=== PATIENT | male | born 1965 | race Caucasian/White ===

== ENCOUNTER 2023-09-28 08:17 | Emergency (ER) | payer OTHER, SELFPAY ==
--- NOTE | ~2023-09-28 | XR_ITS ---
EXAMINATION: XR foot LT min 3V DATE: 09/28/2023 08:48 INDICATION: Left foot pain. TECHNIQUE: 4 views of left foot were obtained. COMPARISON: None. FINDINGS: Bone alignment is normal. No fracture. There is mild osteoarthritis of first metatarsophala ngeal joint and some of the interphalangeal joints. There are enthesophytes at the posterior and plan tar aspects of calcaneal tuberosity. IMPRESSION: 1. Mild polyarticular osteoarthritis. Reviewed, dictated and finalized at location A. RCEPTOR OPERATOR
[2023-09-28 08:35] VITALS: BP 125/94; PULSE 96; RESP 16; TEMP 36.6; O2SAT 99
--- NOTE | 2023-09-28 08:57 | ED.GENADULT ---
HPI - General Adult General Chief complaint: Extremity Injury, Lower Stated complaint: Swollen Left foot Time Seen by Provider: 09/28/23 08:57 Source: patient, RN notes reviewed and old records reviewed Mode of arrival: ambulatory Limitations: no limitations History of Present Illness HPI narrative: 57-year-old male presents to [facility] with complaints pain to his left foot for the past month which is in the arch of his left foot initially in the morning and then as day progresses it will go to the left side of his foot and then go to area of foot under his left ankle bone area. Patient is on his feet a lot at work on concrete daily 10 hours a day and reports some mild swelling of his foot as day progresses. Patient reports that he has no tingling or numbness to his left foot or any burning type of pain, full mobility of left foot noted. MD complaint: left foot pain Onset (ago): month(s) (1) Location: lower extremity (foot) Severity scale (1-10): 2 Quality: aching Exacerbating factors: other (prolonged weight bearing) Treatments prior to arrival: aspirin and other (compression sock) Related Data Home Medications Medication Instructions Recorded Confirmed levothyroxine 175 mcg tablet 175 mcg PO DAILY 11/03/22 09/28/23 Allergies Allergy/AdvReac Type Severity Reaction Status Date / Time No Known Allergies Allergy Unverified 09/28/23 08:32 Review of Systems Review of Systems: CONSTITUTIONAL: Denies fever, chills, or sweats. EYES: Denies visual changes, redness, or discharge. ENT: Denies rhinorrhea, congestion, sore throat, or otalgia. CARDIOVASCULAR: Denies chest pain, palpitations, or edema. RESPIRATORY: Denies cough or dyspnea. GASTROINTESTINAL: Denies abdominal pain, nausea, vomiting, or diarrhea. GENITOURINARY: Denies dysuria or hematuria. SKIN: Denies rash or itching. MUSCULOSKELETAL: Denies back pain,positive for left foot arch pain radiates to left side of foot and to under left ankle, or myalgia. NEUROLOGIC: Denies headache, numbness, or weakness. PSYCHIATRIC: Positive for history of anxiety or depression. All systems reviewed & are unremarkable except as noted in HPI and below PMFSH Past Medical History Medical History (Updated 09/28/23 @ 09:27 by Cely Hernandez NP) Benign essential HTN AC (generalized anxiety disorder) Mixed hyperlipidemia Thyroid cancer Surgical History Surgical History (Updated 09/28/23 @ 09:17 by Cely Hernandez NP) H/O: vasectomy Hx of colonoscopy 2018- repeat in 5 years S/P thyroidectomy Family History Family History Mother Patient's mother is in good health Asthma Father Patient's father is in good health Sibling Patient's sister is in good health Social History Social History Social History: Smoking packs per day: 0.5 Smoking cigarettes per day: 10.0 Years smoked: 14 Smoking pack-years: 7.00 Smoking status: Former smoker Tobacco type: cigarettes Second hand tobacco smoke exposure: No Smoking end date: 10/15/94 Alcohol intake: current Drinks per week: 2 Substance use: never Substance use type: does not use Living arrangements: with family Occupation/Education: occupation Gender identity (if verbalized by the patient): Male Sexual Orientation (if Verbalized by the Patient): Straight or Heterosexual Comments At time of signature, agree with nursing past medical, surgical, social and family history. There is no relevant family history pertinent to the presenting complaint Exam Narrative: GENERAL: Well-appearing, well-nourished, and in no acute distress. HEAD: Normocephalic, atraumatic. EYES: PERRLA and EOMI. ENT: Nares clear, no rhinorrhea or epistaxis. Mucous membranes moist. NECK: Supple.no lymphadenopathy CHEST: Clear to auscultation. No respiratory distress.SAO2 99% on room air HEART:
== END 2023-09-28 09:32 | disposition home or self-care (01) ==
PROVIDERS: Emergency Provider Registered Nurse; PCP Family Medicine
DX: M79.672 Pain in left foot (principal); M77.32 Calcaneal spur, left foot; Z87.891 Personal history of nicotine dependence; I10 Essential (primary) hypertension; E78.2 Mixed hyperlipidemia; E89.0 Postprocedural hypothyroidism; Z85.850 Personal history of malignant neoplasm of thyroid; F41.1 Generalized anxiety disorder
CPT/HCPCS: 73630; 99213; G0463

== ENCOUNTER 2024-03-18 08:04 | Emergency (ER) | payer OTHER, SELFPAY ==
--- NOTE | ~2024-03-18 | XR_ITS ---
XR foot LT min 3V 03/18/2024 08:29 Indication: Left foot pain Procedure: 4 views left foot Comparison: 09/28/2023 Findings: Mild polyarticular osteoarthritis. Normal mineralization. Lisfranc joint intact. No acute f racture or traumatic malalignment. No soft tissue abnormality. No foreign bodies. Impression: 1: No acute bone or joint abnormality. Reviewed, dictated and finalized at location B. Impression: 1: No acute bone or joint abnormality.
--- NOTE | 2024-03-18 08:10 | ED.LOWEXIN ---
HPI - Extremity Injury (Lower) General Chief Complaint: Extremity Injury, Lower Stated Complaint: Injured Left Foot Time Seen by Provider: 03/18/24 08:15 Source: patient, RN notes reviewed and old records reviewed Mode of arrival: ambulatory Limitations: no limitations History of Present Illness HPI Narrative: 58 year old male who presents to [facility] with complaints of mowing on Sunday and felt a pop in his left foot at the base of his toes when he stepped wrong. He reports that he went to work yesterday and he wears steel toed boots and walks a lot and by the time he got home his foot was swollen and painful. He states that he has iced and elevated his foot and has been taking some Ibuprofen for his discomfort. MD complaint: foot injury Onset (ago): day(s) (2) Place: home Severity: moderate Severity scale (1-10): 4 Exacerbating factors: weight bearing Treatments prior to arrival: cold therapy, NSAIDS and other (elevate) Related Data Allergies Allergy/AdvReac Type Severity Reaction Status Date / Time No Known Allergies Allergy Verified 03/18/24 08:10 Review of Systems Review of Systems: CONSTITUTIONAL: Denies fever, chills, or sweats. EYES: Denies visual changes, redness, or discharge. ENT: Denies rhinorrhea, congestion, sore throat, or otalgia. CARDIOVASCULAR: Denies chest pain, palpitations, or edema. RESPIRATORY: Denies cough or dyspnea. GASTROINTESTINAL: Denies abdominal pain, nausea, vomiting, or diarrhea. GENITOURINARY: Denies dysuria or hematuria. SKIN: Denies rash or itching. MUSCULOSKELETAL: Denies back pain, positive for left foot pain mid metatarsals to base of toes with swelling, or myalgia. NEUROLOGIC: Denies headache, numbness, or weakness. PSYCHIATRIC: Denies anxiety or depression. All systems reviewed & are unremarkable except as noted in HPI and below PMFSH Past Medical History Medical History Benign essential HTN AC (generalized anxiety disorder) Mixed hyperlipidemia Thyroid cancer Surgical History Surgical History H/O: vasectomy Hx of colonoscopy 2018- repeat in 5 years S/P thyroidectomy Family History Family History Mother Patient's mother is in good health Asthma Father Patient's father is in good health Sibling Patient's sister is in good health Social History Social History Social History: Smoking packs per day: 0.5 Smoking cigarettes per day: 10.0 Years smoked: 14 Smoking pack-years: 7.00 Smoking status: Former smoker Tobacco type: cigarettes Second hand tobacco smoke exposure: No Smoking end date: 10/15/94 Alcohol intake: current Drinks per week: 2 Substance use: never Substance use type: does not use Do You Feel Safe in your Home?: Yes Lack of Transportation: No Lack of Food: Never True Current Housing: I Have Housing Concerned About Future Housing: No Difficulty Paying Gas/Electric Bills: No Difficulty Paying for Meds: No Currently Unemployed: No Education: High School Diploma/GED Difficulty w/ Childcare or Family Care: No Living arrangements: with family Occupation/Education: occupation Gender identity (if verbalized by the patient): Male Sexual Orientation (if Verbalized by the Patient): Straight or Heterosexual Comments At time of signature, agree with nursing past medical, surgical, social and family history. There is no relevant family history pertinent to the presenting complaint Exam Narrative: GENERAL: Well-appearing, well-nourished, and in no acute distress. HEAD: Normocephalic, atraumatic. EYES: PERRLA and EOMI. ENT: Nares clear, no rhinorrhea or epistaxis. Mucous membranes moist.TM's normal throat pink with no lesions NECK: Supple. no lymphadenopathy CHEST: Clear to
[2024-03-18 08:11] VITALS: BP 119/78; PULSE 71; RESP 16; TEMP 36.6; O2SAT 97
== END 2024-03-18 08:56 | disposition home or self-care (01) ==
PROVIDERS: Emergency Provider Registered Nurse; PCP Emergency Medicine
DX: S96.912A Strain of unspecified muscle and tendon at ankle and foot level, left foot, initial encounter (principal); X50.9XXA Other and unspecified overexertion or strenuous movements or postures, initial encounter; Y93.H9 Activity, other involving exterior property and land maintenance, building and construction; I10 Essential (primary) hypertension; E78.2 Mixed hyperlipidemia; E89.0 Postprocedural hypothyroidism; Z85.850 Personal history of malignant neoplasm of thyroid; Z98.52 Vasectomy status; Z87.891 Personal history of nicotine dependence
CPT/HCPCS: 73630; 99213; G0463

== ENCOUNTER 2024-06-30 00:54 | Emergency (ER) | payer OTHER, SELFPAY ==
--- NOTE | ~2024-06-30 | CT_ITS ---
Non-contrast CT scan of the Abdomen and Pelvis Clinical indication: Left flank pain Technique: 2.5 mm axial scans were obtained through the abdomen and pelvis without intravenous or or al contrast. Dose reduction technique was used on this scan by utilizing automated exposure control a nd iterative reconstruction technique. The dose-length product (DLP) was 1468.92 mGy-cm. Findings: Images through the lung bases reveal no abnormalities. There is a punctate distal left ureteral stone (axial image 166), with mild left hydroureteronephrosi s to this level. Additional punctate nonobstructing left renal stone may be present. No right renal o r right ureteral stones. No right hydronephrosis. Small bilateral renal cysts are present. The liver, spleen, pancreas, gallbladder, and adrenals appear normal. There is no aortic aneurysm. There is no evidence of bowel obstruction. Images through the pelvis were performed. There is no evidence of ascites or lymphadenopathy. Urinary bladder unremarkable. No pelvic mass seen. Impression: Punctate distal left ureteral stone with mild left hydroureteronephrosis to this level. Suspected additional punctate nonobstructing left renal stone. Reviewed, dictated and finalized at location . Impression: Punctate distal left ureteral stone with mild left hydroureteronephrosis to thi s level. Suspected additional punctate nonobstructing left renal stone.
[2024-06-30 00:58] VITALS: BP 140/96; PULSE 74; RESP 17; TEMP 36.8; O2SAT 99
[2024-06-30 01:54] VITALS: BP 146/92; PULSE 64; RESP 16; TEMP 36.4; O2SAT 98
[2024-06-30 02:09] LABS: Basophils Percent Auto 0.2 % (0.2-1.2); Eosinophils Absolute Auto 0.1 K/mm3 (0-0.3); Eosinophils Percent Auto 0.8 % (0-4.4); Hematocrit 43.8 % (42.0-52.0); Hemoglobin 14.9 g/dL (14.0-18.0); Immature Granulocyte Absolute 0.03 K/mm3 (0.00-0.031); Immature Granulocyte Percent A 0.3 % (0-0.5); Lymphocytes Absolute Auto 1.67 K/mm3 (0.9-3.2); Lymphocytes Percent Auto 15.4 % (18.3-44.2); Mean Corpuscular Hemoglobin 30.8 pg (26-34); Mean Corpuscular Volume 90.7 fl (80-100); Mean Platelet Volume 10.1 fl (7.4-10.4); Monocytes Absolute Auto 0.9 K/mm3 (0.1-0.6); Neutrophils Absolute Auto 8.2 K/mm3 (1.3-6.7); Neutrophils Percent Auto 75.3 % (45.5-73.1); Platelet Count Result 211 k/mm3 (150-375); Red Blood Count 4.83 M/mm3 (4.6-6.20); Red Cell Distribution Width 13.4 % (11.5-14.5); White Blood Count 10.8 K/mm3 (4.5-10.0)
[2024-06-30] MEDS: SODIUM CHLORIDE 0.9% IV 1,000 ML 999 ML IV CONT (02:13)
[2024-06-30] MEDS: ONDANSETRON INJ 4 MG/2 ML VIAL IV PUSH (02:14)
[2024-06-30] MEDS: MORPHINE SULFATE (*CRX) 4 MG/ML INJ IV PUSH (02:15)
[2024-06-30 02:20] LABS: Alanine Aminotransferase 22 U/L (6-50); Albumin Level 4.3 g/dL (3.5-5.1); Alkaline Phosphatase 73 U/L (38-126); Anion Gap 10 mmol/L (4-12); Aspartate Amino Transferase 24 U/L (17-59); Bilirubin,Total 0.6 mg/dL (0.2-1.3); Blood Urea Nitrogen 29 mg/dL (9-20); Carbon Dioxide 27 mmol/L (22-30); Chloride 105 mmol/L (98-107); Estimated CRCL calculation 66 ml/min; Estimated Glomerular Filt Rate 52; Glucose 118 mg/dL (65-110); Potassium 4.2 mmol/L (3.4-5.0); Sodium 142 mmol/L (137-145)
--- NOTE | 2024-06-30 02:27 | ED.GENADULT ---
HPI - General Adult General Chief complaint: Back Pain/Injury Stated complaint: Left sided back pain Time Seen by Provider: 06/30/24 01:58 History of Present Illness HPI narrative: Patient is a 58-year-old gentleman who presents emergency department with chief complaint of left flank pain. Patient reports he has prior history of kidney stones and reports that he started having pain around 2:00 a.m. yesterday moves left flank area the patient reports that radiates to the left side of his abdomen the patient reports he has had some nausea but no vomiting Related Data Allergies Allergy/AdvReac Type Severity Reaction Status Date / Time No Known Allergies Allergy Verified 06/30/24 01:02 Review of Systems Review of Systems: A 10 system review of systems was completed on the patient and is negative except for what is stated in the HPI. Nursing and ancillary documentation was reviewed. [facility] Past Medical History Medical History Benign essential HTN AC (generalized anxiety disorder) Mixed hyperlipidemia Thyroid cancer Surgical History Surgical History H/O: vasectomy Hx of colonoscopy 2018- repeat in 5 years S/P thyroidectomy Family History Family History Mother Patient's mother is in good health Asthma Father Patient's father is in good health Sibling Patient's sister is in good health Social History Social History Social History: Smoking packs per day: 0.5 Smoking cigarettes per day: 10.0 Years smoked: 14 Smoking pack-years: 7.00 Smoking status: Former smoker Tobacco type: cigarettes Second hand tobacco smoke exposure: No Smoking end date: 10/15/94 Alcohol intake: current Drinks per week: 2 Substance use: never Substance use type: does not use Do You Feel Safe in your Home?: Yes Lack of Transportation: No Lack of Food: Never True Current Housing: I Have Housing Concerned About Future Housing: No Difficulty Paying Gas/Electric Bills: No Difficulty Paying for Meds: No Currently Unemployed: No Education: High School Diploma/GED Difficulty w/ Childcare or Family Care: No Living arrangements: with family Occupation/Education: occupation Gender identity (if verbalized by the patient): Male Sexual Orientation (if Verbalized by the Patient): Straight or Heterosexual Exam Narrative: GENERAL: Well-appearing, well-nourished, and in no acute distress. HEAD: Normocephalic, atraumatic. EYES: PERRLA and EOMI. ENT: Nares clear, no rhinorrhea or epistaxis. Mucous membranes moist. NECK: Supple. CHEST: Clear to auscultation. No respiratory distress. HEART: Regular rate and rhythm. No murmur heard. Normal peripheral pulses. ABDOMEN: Soft, nontender, nondistended, normal active bowel sounds. EXTREMITIES: Normal range of motion. No edema. SKIN: Warm, dry, no rash. NEURO: No focal deficits. Alert and oriented x3. PSYCH: Normal mood and affect. Course Vital Signs Vital signs: Vital Signs Temperature 36.8 C 06/30/24 00:58 Pulse Rate 74 06/30/24 00:58 Respiratory Rate 17 06/30/24 00:58 Blood Pressure 140/96 H 06/30/24 00:58 Pulse Oximetry 99 06/30/24 00:58 Oxygen Delivery Room Air 06/30/24 00:58 Temperature 36.6 C 06/30/24 03:30 Pulse Rate 65 06/30/24 03:30 Respiratory Rate 18 06/30/24 03:30 Blood Pressure 139/92 H 06/30/24 03:30 Pulse Oximetry 94 06/30/24 03:30 Oxygen Delivery Room Air 06/30/24 00:58 Medical Decision Making [facility] Narrative Medical decision making narrative: Differential diagnosis includes ureterolithiasis, intra-abdominal infection, UTI, Vital Signs Vital Signs: Vital Signs Temperature 36.8 C 06/30/24 00:58 Pulse Rate
[2024-06-30 03:30] VITALS: BP 139/92; PULSE 65; RESP 18; TEMP 36.6; O2SAT 94
[2024-06-30 03:49] LABS: Add Urine Microscopic? NO; Appearance Urine Clear (Clear); Bilirubin Urine Negative (Negative); Blood Urine Negative (Negative); Color Urine Yellow (Yellow); Glucose Urine UA Negative (Negative); Ketones Urine Negative (Negative); Leukocyte Esterase Ur Negative LEU/UL (Negative); Nitrate Urine Negative (Negative); Protein Urine Negative (Negative); Specific Grav Ur 1.019 (1.001-1.035); Urobilinogen Urine 0.2 mg/dL (<2.0)
[2024-06-30] MEDS: TAMSULOSIN HCL 0.4 MG CAPSULE PO (03:53)
[2024-06-30] MEDS: HYDROmorphone HCL INJ (*CRX) 1 MG/ML SYR IV PUSH (04:13)
== END 2024-06-30 05:01 | disposition home or self-care (01) ==
PROVIDERS: Emergency Provider Emergency Medicine; PCP Emergency Medicine
DX: N13.2 Hydronephrosis with renal and ureteral calculous obstruction (principal); I10 Essential (primary) hypertension; E78.2 Mixed hyperlipidemia; E89.0 Postprocedural hypothyroidism; Z85.850 Personal history of malignant neoplasm of thyroid; Z87.442 Personal history of urinary calculi; Z87.891 Personal history of nicotine dependence; Z79.899 Other long term (current) drug therapy
CPT/HCPCS: 36415; 74176; 80053; 81003; 85025; 96361; 96374; 96375; 99284; A9270; J1170; J2270; J2405; J7030

== ENCOUNTER 2025-01-23 08:00 | Outpatient (CLI) | payer OTHER, SELFPAY ==
--- OUTSIDE RECORDS SUMMARY | 2025-01-23 08:05 | XMS_ITS | Clinical Summary ---
Author Organization [facility] Health Address [address] [place] [address] Care Team Providers Care Sinker Puller Name Role Phone Belkis Denny MD Primary Care Provider + Source Comments [facility],non-owned Affiliates and Associated Physician Practices is amultiple site organization consisting of ambulatory clinics and hospital sitesin [place], [place], [place] and [place]. This disclosure is being madepursuant to the Care Everywhere program and may not contain all information available regarding this patient. Last updated 18.[facility] Allergies No known active allergies Social History Tobacco Use Types Packs/Day Years Used Date Smoking Tobacco: Former Smokeless Tobacco: Never Alcohol Use Standard Drinks/Week Comments Yes 0 (1 standard drink = 0.6 oz pur e alcohol) occasionally Sex and Gender Information Value Date Recorded Sex Assigned at Not on file Gender Identity Not on file Sexual Orientation Not on file Last Filed Vital Signs Vital Sign Reading Time Taken Comments Blood Pressure 134/86 06/15/2020 10:00 AM CDT Pulse 67 06/15/2020 10:40 AM CDT Temperature 36.6 C (97.8 F) 06/15/2020 8:53 AM CDT Respiratory Rate 17 06/15/2020 10:40 AM CDT Oxygen Saturation 99% 06/15/2020 10:40 AM CDT Inhaled Oxygen Concentration - - Weight 104.3 kg (230 lb) 06/15/2020 8:53 AM CDT Height 175.3 cm (5' 9 ) 06/15/2020 8:53 AM CDT Body Mass Index 33.97 06/15/2020 8:53 AM CDT Plan of Treatment Health Maintenance Due Date Last Done Comments COLOGUARD (AGES 45-75) - COL ON CA SCREENING 1967 COLON MONITORING 1967 COLONOSCOPY - COLON CA SCREENING 1967 CT COLONOGRAPHY - COLON CA SCREENING 1967 Colorectal Cancer Screening 1967 FIT - COLON CA SCREENING 1967 FLEX SIG - COLON CA SCREENING 1967 LIPID TESTING 1967 HIV SCREENING 1982 HEPATITIS C SCREENING 10/05/1985 DTAP/TDAP/TD VACCINES (1 - Tdap) 1986 HEPATITIS B VACCINE (1 of 3 - 19+ 3-dose series) 1986 PNEUMOCOCCAL VACCINE 50+ (1 of 1 - PCV) 2017 ZOSTER VACCINE (1 of 2) 2017 COVID-19 VACCINE ( - 2023-2 5 season) 2024 DEPRESSION SCREENING 10/15/2024 INFLUENZA VACCINE (Season Ended) 2025 HIB VACCINE Aged Out No longer eligi ble based on patient's age to complete this topic HPV VACCINE Aged Out No longer eligi ble based on patient's age to complete this topic MENINGOCOCCAL (Group B) VACC INE SHARED DECISION-MAKING Aged Out No longer eligibl e based on patient's age to complete this topic MENINGOCOCCAL GROUPS A/C/Y/W VACCINE Aged Out No longer eligible b ased on patient's age to complete this topic PNEUMOCOCCAL VACCINE Aged Out No long er eligible based on patient's age to complete this topic Care Teams Sinker Puller Relationship Specialty Start Date End Date Belkis Denny MD [address] [place] [address] PCP - General 08/27/18
[2025-01-23 18:09] LABS: Basophils Percent Auto 0.4 % (0.2-1.2); Eosinophils Absolute Auto 0.2 K/mm3 (0-0.3); Eosinophils Percent Auto 2.6 % (0-4.4); Hematocrit 47.4 % (42.0-52.0); Hemoglobin 15.4 g/dL (14.0-18.0); Immature Granulocyte Absolute 0.02 K/mm3 (0.00-0.031); Immature Granulocyte Percent A 0.3 % (0-0.5); Lymphocytes Percent Auto 26.1 % (18.3-44.2); Mean Corpuscular HGB Conc 32.5 g/dl (32-36); Mean Corpuscular Hemoglobin 30.1 pg (26-34); Mean Corpuscular Volume 92.8 fl (80-100); Mean Platelet Volume 11.1 fl (7.4-10.4); Monocytes Absolute Auto 0.7 K/mm3 (0.1-0.6); Monocytes Percent Auto 9.5 % (2.6-8.5); Neutrophils Absolute Auto 4.5 K/mm3 (1.3-6.7); Neutrophils Percent Auto 61.1 % (45.5-73.1); Platelet Count Result 215 k/mm3 (150-375); Red Blood Count 5.11 M/mm3 (4.6-6.20); Red Cell Distribution Width 13.1 % (11.5-14.5); White Blood Count 7.3 K/mm3 (4.5-10.0)
[2025-01-23 18:27] LABS: Alanine Aminotransferase 25 U/L (6-50); Albumin Level 4.3 g/dL (3.5-5.1); Alkaline Phosphatase 55 U/L (38-126); Anion Gap 7 mmol/L (4-12); Aspartate Amino Transferase 35 U/L (17-59); Blood Urea Nitrogen 28 mg/dL (9-20); Calcium 8.8 mg/dL (8.4-10.2); Carbon Dioxide 30 mmol/L (22-30); Chloride 102 mmol/L (98-107); Cholesterol 141 mg/dL (0-200); Estimated Glomerular Filt Rate > 60; Glucose 103 mg/dL (65-110); HDL Direct 28 mg/dL; Potassium 4.5 mmol/L (3.4-5.0); Sodium 139 mmol/L (137-145); Triglycerides 96 mg/dL (<150)
[2025-01-23 18:35] LABS: Hemoglobin A1C 5.9 % (<5.7)
[2025-01-23 18:39] LABS: LDL Cholesterol Direct 92 mg/dL
[2025-01-23 18:51] LABS: Prostate Specific Antigen 1.1 ng/mL (< OR = 4.0); Thyroid Stimulating Hormone 0.939 uIU/mL (0.465-4.680)
== END 2025-01-23 08:01 | disposition home or self-care (01) ==
LOC: ANHGOSHLAB 08:03
PROVIDERS: PCP Nurse Practitioner Family; Visit Provider Nurse Practitioner Family
DX: Z12.5 Encounter for screening for malignant neoplasm of prostate (principal); E78.2 Mixed hyperlipidemia; R73.01 Impaired fasting glucose; E89.0 Postprocedural hypothyroidism; I10 Essential (primary) hypertension
CPT/HCPCS: 36415; 80053; 80061; 83036; 84153; 84443; 85025; G0103

== ENCOUNTER 2025-05-04 00:59 | Day surgery (SDC) | payer OTHER, SELFPAY ==
[2025-04-22 12:39] VITALS: BMI 37.0
--- OUTSIDE RECORDS SUMMARY | 2025-05-04 01:01 | XMS_ITS | Clinical Summary ---
Author Organization [facility] Health Address [address] [place] [address] Care Team Providers Care Project Controls Scheduler Name Role Phone Belkis Denny MD Primary Care Provider + Source Comments [facility],non-owned Affiliates and Associated Physician Practices is amultiple site organization consisting of ambulatory clinics and hospital sitesin [place], [place], [place] and [place]. This disclosure is being madepursuant to the Care Everywhere program and may not contain all information available regarding this patient. 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
--- OUTSIDE RECORDS SUMMARY | 2025-05-04 01:01 | XMS_ITS | Patient Health Record ---
Author Organization [facility] Address [address] [place], [place] [id number] Care Team Providers Care Gas Pumping Station Supervisor Name Role Phone ANNABELLA CABALLERO Unavailable [phone] Marco AntonioBelkis latham Unavailable Unavailable Reason For Referral No Information Plan Of Treatment No Information Insurance Providers Payer Name Payer Address Payer Phone Subscriber Number Group Number Insured Name Patient Relationship to Insured Coverage Start Date Coverage End Date [facility] [address] [address] [place] [address] [id number] JEOVANNY ATKINSON Self - patient is the insured
--- OUTSIDE RECORDS SUMMARY | 2025-05-04 01:01 | XMS_ITS ---
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 For this we will order lymphoscintigraphy, due to the location of the lesion. Patient and family are understanding and agreeable. Postsurgical hypothyroidism 07/03/2017 Malignant neoplasm of thyroid gland 02/28/2014 Overview (01/19/2017): MALIGN NEOPL THYROID Current Treatment and Therapy Plans Pembrolizumab 42 Day Cycles* Plan Start Date:04/13/2025 Plan Provider:Cheo Ba MD Linked Problems Melanoma of flank (HCC) Treatment Medications Current Day (Day 1 , Cycle 2 - Planned for 06/10/2025) Next Day (Day 1, Cycle 3 - Planned for 07/22/2025) pembrolizumab (KEYTRUDA)pembrolizumab (KEYTRUDA) IVPB in 100 mL pembrolizumab (KEYTRUDA) 400 mg in sodium chloride 0.9% 100 mL IVPB pembrolizumab (KEYTRUDA) 400 mg in sodium chloride 0.9% 100 mL IVPB Past Treatment and Therapy Plans No past plan information found.
--- OUTSIDE RECORDS SUMMARY | 2025-05-04 01:01 | XMS_ITS | Clinical Summary ---
Author Organization [facility] B Address [address] [place] [address] Care Team Providers Care School Office Assistant Name Role Phone Katie Newell MD Unavailable [phone] Carin Mcgee NP Primary Care Provider [phone] Allergies No known active allergies Medications lisinopril-hydr oCHLOROthiazide (PRINZIDE,ZESTO RETIC) 10-12.5 mg per tabletIndicatio ns:hypertension Take 1 tablet by mouth daily 7 Active buPROPion XL (WELLBUTRIN XL) 150 mg 24 hr tablet Take 1 tablet (150 mg total) by mouth every morning 7 Active rosuvastatin (CRESTOR) 20 mg tablet Take 1 tablet (20 mg total) by mouth daily 2 Active levothyroxine (SYNTHROID) 175 mcg tablet Take 1 tablet (175 mcg total) by mouth daily 90 tablet 3 3 Active omega-3 fatty acids-fish oil 300-1,000 mg capsule Take 2 capsules (2 g total) by mouth daily Active calcium carbonate-vitam in D3 2,500 mg (1,000 mg elemental)-800 unit tablet Take 1 each by mouth daily Active cholecalciferol (VITAMIN D-3) 50,000 unit capsule Take 1 capsule (50,000 Units total) by mouth 5 Active oxyCODONE-aceta minophen (PERCOCET) 5-325 mg per tabletIndicatio ns:Pain Take 1-2 tablets by mouth every 8 (eight) hours as needed for pain 15 tablet 5 04/23/20 25 Discontinu ed(Patient Reported) Active Problems Problem Noted Date Diagnosed Date [...] gland 02/28/2014 Overview (01/19/2017): MALIGN NEOPL THYROID Encounters Date Type Department Care Team Description 04/23/2025 11:30 AM CDT Infusion [facility] [address] [place] [address] Melanoma of flank (HCC) (Primary Dx) 04/23/2025 11:15 AM CDT Office Visit [facility] [address] [place] [address] Office [facility] B [facility] [address] [place] [address] Cheo Ba MD Melanoma of flank (HCC) (Primary Dx); 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) 04/23/2025 10:45 AM CDT Lab [facility] [address] [place] [address] 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); Melanoma of flank (HCC) 04/22/2025 Telephone [facility] [address] [place] [address] Office [facility] [address] [place] [address] Viky Robb, CLTarun 04/16/2025 Telephone [facility] [address] [place] [address] Medical Office [facility] [address] [place] [address] Sharmaine Babin RN 04/07/2025 Orders Only [facility] [address] [place] [address] Medical Office [address] [place] [address] Cheo Ba MD 04/07/2025 Orders Only [facility] [address] [place] [address] Office [facility] [address] [place] [address] Cheo Ba MD Melanoma of flank (HCC) (Primary Dx) 04/07/2025 Orders Only [facility] [address] [place] [address] Office [facility] [address] [place] [address] Cheo Ba MD Melanoma of flank (HCC) (Primary Dx) 04/02/[address] 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) 03/25/2025 1:57 PM CDT - 03/25/2025 11:59 PM CDT Hospital Encounter [facility] 1 [place] [address] 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); Melanoma of flank (HCC) Discharge Disposition: Discharge to home or self care 03/23/2025 Telephone [facility] Surgery [address] [place] [address] Floor 5 [place] [address] Erin Ng RN 03/23/2025 Telephone [facility] [address] [place] [address] Office [facility] [address] [place] [address] Cheryl Velasco, CHRISTEN 03/19/2025 9:20 AM CDT - 03/19/2025 11:59 PM CDT Hospital Encounter [facility] [address] [place] [address] 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); Melanoma of flank (HCC) Discharge Disposition: Discharge to home or self care 03/17/2025 1:30 PM CDT Office Visit [facility] [address] [place] [address] Office [address] [place] [address] Cheo Ba MD 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); Melanoma of flank (HCC) 03/12/2025 11:00 AM CDT Office Visit [address] [place] [address] Jeremiah Johnson MD Melanoma of flank (HCC) (Primary Dx) 03/10/2025 Telephone [facility] Oncology [facility] [address] [place] [address] Jessie Fisher 03/06/2025 Telephone [facility] [address] [place] [address] [address] [place] [address] Cheryl Velasco CLT 03/06/2025 Orders Only [address] [place] [address] Suri Meyer RN Melanoma of flank (HCC) (Primary Dx) 03/06/2025 Results Follow-Up [address] [place] [address] Jeremiah Johnson MD Surgical pathology 02/27/2025 11:12 AM CDT Anesthesia Event [facility] Operating Room 1 [place] [address] Marquis Rodriguez MD Kory, Christopher James, MD 02/27/2025 10:40 AM CDT - 02/27/2025 11:55 AM CDT Surgery [facility] Operating Room 1 [place] [address] Jeremiah Johnson MD EXCISION MELANOMA LEFT LATERAL FLANK - LYMPH NODE BIOPSY- NM LYMPHOSCINTIGRAPHY 02/27/2025 6:55 AM CDT - 02/27/2025 11:59 PM CDT Hospital Encounter [facility] 1 [place] [address] Skin cancer of trunk Discharge Disposition: Discharge to home or self care 02/27/2025 6:55 AM CDT - 02/27/2025 2:30 PM CDT Hospital Encounter [facility] Operating Room [address] [place] [address] Jeremiah Johnson MD Melanoma of flank (HCC) Discharge Disposition: Discharge to home or self care 02/18/2025 10:00 AM CDT Office Visit [facility] [address] [facility] [address] [place] [address] EyersYoselin NP Melanoma of flank (HCC) 02/18/2025 Orders Only [place] [facility] [address] [facility] [address] [place] [address] Jeremiah Johnson MD Skin cancer of trunk (Primary Dx) 02/13/2025 Orders Only [facility] [address] [place] [address] Keo Dodd Jr., MD Malignant melanoma of abdomen (HCC) 02/09/2025 Orders Only [facility] Surgery [address] [facility] Floor 8 [place] [address] Keo Dodd Jr., MD Malignant melanoma of abdomen (HCC) (Primary Dx) from Last 3 Months Immunizations Immunization Administration Dates Next Due COVID-19 MRNA (MODERNA) .5 M L (50 MCG) VACCINE (12 YEARS AND UP) 07/23/2024 Influenza, Quadrivalent, Elizabeth l Culture-based MDCK, Preservative Free, Antibiotic Free, Intramuscular 07/20/2022 Influenza, Trivalent, IM (MDV) 07/27/2021,2013 Influenza, Unspecified 07/23/2024 ZOSTER Recombinant 07/20/2022 Surgical History Surgery Date Site/Laterality Comments THYROIDECTOMY 2006 Thyroidectomy- Total VASECTOMY 2008 FLANK MASS EXCISION 02/27/2025 Left melanoma Medical History Medical History Date Comments Disorder of thyroid Thyroid dise ase Cancer (HCC) Thyroid Cancer, Melanoma Hypertension HLD (hyperlipidemia) Malignant melanoma of flank (HCC) Family History Medical History Relation Name Comments Blood Clot Father Pancreatic cancer Maternal Grandmother Other Other No family histo ry of Cancer; Relation Name Status Comments Father Maternal Grandmother Mother Alive Other Social History Tobacco Use Types Packs/Day Years Used Date Smoking Tobacco: Former Cigarettes Smokeless Tobacco: Never Tobacco Cessation:Counseling Given: Not Answered Alcohol Use Standard Drinks/Week Comments Yes 0 (1 standard drink = 0.6 oz pur e alcohol) AUDIT-C Answer Date Recorded Q1: How often do you have a drink containing alc ohol? Monthly or less 04/23/2025 Q2: How many drinks containi ng alcohol do you have on a typical day when you are drinking? 1 or 2 04/23/2025 Frequency of Binge Drinking Not on file 04/14 Personal Safety Answer Date Recorded Have you ever been in or are you currently in a harmful physical or emotional relationship or is someone making you feel afraid or unsafe? 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 Gender Identity Not on file Sexual Orientation Not on file Obstetrics History Last Filed Vital Signs Vital Sign Reading Time Taken Comments Blood Pressure 131/71 04/23/2025 11:30 AM CDT Pulse 82 04/23/2025 11:30 AM CDT Temperature 36.2 C (97.1 F) 04/23/2025 11:30 AM CDT Respiratory Rate 18 04/23/2025 11:3 0 AM CDT Oxygen Saturation 97% 03/27/2025 12: 57 PM CDT Inhaled Oxygen Concentration - - Weight 112.6 kg (248 lb 3.2 oz) 025 11:30 AM CDT Height 175.3 cm (5' 9) 04/23/2025 11:3 0 AM CDT Body Mass Index 36.65 04/23/2025 11:30 AM CDT Plan of Treatment Health Maintenance Due Date Last Done Comments Colon Cancer Screening-Colonoscopy 1967 Depression Screening 1967 Hepatitis C Screening 1967 Prostate Cancer Screening-PSA 1967 DTaP/Tdap/Td Vaccine (1 - Tdap) 1978 Hepatitis B Screening 1985 Regular Well Visit/Exam 18-64 1985 Pneumococcal vaccine <65 (1 of 2 - PCV) 1986 Zoster Vaccine (2 of 2) 09/14/2022 07/20/2022 Covid-19 Vaccine (7 - Pfizer risk season) 2025 07/23/2024, 08/12/2022, 05/20/2022, Additional history exists Influenza Vaccine (#1) 2025 , 07/20/2022, 07/27/2021, Additional history exists Procedures Procedure Name Priority Date/Time Associated Diagnosis Comments [facility] XF Routine 04/23/2025 1:04 PM CDT 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) Melanoma of flank (HCC) EGFR STAT 04/23/2025 11:20 AM CDT Melanoma of flank (HCC) DIFFERENTIAL AUTO Routine 04/23/2025 11:20 AM CDT Melanoma of flank (HCC) CBC WITH AUTO DIFFERENTIAL Routine 04/23/2025 11:20 AM CDT Melanoma of flank (HCC) COMPREHENSIVE METABOLIC PANEL STAT 04/23/2025 11:20 AM CDT Melanoma of flank (HCC) THYROID FUNCTION CASCADE Routine 025 11:20 AM CDT Melanoma of flank (HCC) MRI BRAIN W WO CONTRAST Schedule BEATRIZ, Read BEATRIZ (Appt Today, Awaiting Results) 03/25/2025 2:49 PM CDT 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) Melanoma of flank (HCC) PET/CT FDG SKULL TO THIGH Schedule BEATRIZ, Read BEATRIZ (Appt Today, Awaiting Results) 03/19/2025 11:02 AM CDT 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) Melanoma of flank (HCC) SURGICAL PATHOLOGY Routine 02/27/2025 2: 06 PM CDT Melanoma of flank (HCC) FL AN ELECTIVE SUPRAGLOTTIC AIRWAY Routine 02/27/2025 11:20 AM CDT EXCISION MELANOMA - BIOPSY SENTINEL NODE 02/27/2025 10:57 AM CDT Melanoma of flank (HCC) NM LYMPHOSCINTIGRAPHY (SKIN CANCER) Schedule Routine, Read Routine (OP Routine) 02/27/2025 9:12 AM CDT Skin cancer of trunk POTASSIUM LEVEL STAT 02/27/2025 7:48 AM CDT SURGICAL PATHOLOGY Routine 02/13/2025 11:04 AM CDT Malignant melanoma of abdomen (HCC) from Last 3 Months Results * [facility] xF - Add On (sample already with [facility]) (04/23/2025 1:04 PM CDT) Reason for Study To identify mutations relevant to patient's cancer. 04/30/2025 10:40 AM CDT [facility] Genetic Diseases Assessed Cancer 04/30/2025 10:40 AM CDT [facility] Description of Ranges of DNA Sequences Examined 105 gene liquid biopsy 04/30/2025 10:40 AM CDT [facility] Overall Interpretation inconclusive 04/30/2025 10:40 AM CDT [facility] Portal [email or web address] 04/30/2025 10:40 AM CDT [facility] Comment:[facility] link Low Coverage Regions ERRFI1, JAK1, KMT2A, MSH3, SPOP, TERT, TSC2 04/30/2025 10:40 AM CDT [facility] Tumor Mutational Erwin 0.0 m/MB 04/30/2025 10:40 AM CDT [facility] Genomic Variant Note No reportable pathogenic variants were found. 04/30/2025 10:40 AM CDT [facility] Microsatellite Instability Note MSI-High not detected 04/30/2025 10:40 AM CDT [facility] Treatment Implications Note No reportable treatment options found. 04/30/2025 10:40 AM CDT [facility] Blood specimen (specimen) 04/23/2025 1:04 PM CDT 04/24/2025 3:47 PM CDT Narrative This result has genomic variants that were not included in this document. us Cheo Ba MD LAB GENETIC TESTING Final Result [facility], [address] [phone] [facility] [address] [facility], [place] [address] * eGFR (04/23/2025 11:20 AM CDT) eGFR 89 >=60 mL/min/1. 73 m2 Comment: Interpretive Data Reference Interval Normal >/= 90 mL/min/1.73m2 Mildly decreased* 60 - 89 mL/min/1.73m2 Mildly to moderately decreased 45 - 59 mL/min/1.73m2 Moderately to severely decreased 30 - 44 mL/min/1.73m2 Severely decreased 15 - 29 mL/min/1.73m2 Kidney Failure < 15 mL/min/1.73m2 *Relative to young adult level Estimated glomerular filtration rate is determined by the 2020 CKD-EPI equation recommended by the National Kidney Foundation (A Unifying Approach to GFR Estimation: Recommendations of the NKF-ASK Task Force on Reassessing the Inclusion of Race in Diagnosing Kidney Disease, JASN 2020). The CKD-EPI equation should not be used for patients with unstable renal function and has not been validated in children and those over 70. Current interpretive data was last reviewed 2021. Testing performed by: [facility], [facility], [place], [address] Blood 04/23/2025 11:2 0 AM CDT 04/23/2025 11:42 AM CDT us Cheo Ba MD LAB BLOOD ORDERABLES Melissa l Result [facility] ([facility]) [address] [facility] [place] [address] * Differential, auto (04/23/2025 11:20 AM CDT) Neutrophil abs 3.97 1.50 - 6.50 K/cumm [facility] ([facility]) Comment:Testing performed by : [facility] [place] [address], Medical Office [facility] [address], [place] [address] Imm gran abs 0.01 0.00 - 0.10 K/cumm [facility] ([facility]) Comment:Testing performed by : [facility], [place] [address], Medical Office [facility] [address], [place] [address] Lymphocyte abs 1.53 0.80 - 3.30 K/cumm [facility] ([facility]) Comment:Testing performed by : [facility], [place] [address], Medical Office [facility] [address], [place] [address] Monocyte abs 0.56 0.20 - 0.80 K/cumm [facility] ([facility]) Comment:Testing performed by : [facility], [place] [address], Medical Office [facility] [address], [place] [address] Eosinophil abs 0.11 0.00 - 0.50 K/cumm [facility] ([facility]) Comment:Testing performed by : [facility], [place] [address], Medical Office [facility] [address], [place] [address] Basophil abs 0.02 0.00 - 0.10 K/cumm [facility] ([facility]) Comment:Testing performed by : [facility], [place] [address], Medical Office [facility] [address], [place] [address] Neutrophil pct 64.0 % [facility] ([facility]) Comment: Interpretive Data Percent cell count reference ranges are not reported, since discordance with absolute values may lead to misinterpretation of CBC data. Current Interpretive Data was last revised on 2022. Testing performed by: [facility], [place] [address], Medical Office [facility] [address], [place] [address] Imm gran pct 0.2 % [facility] ([facility]) Comment: Interpretive Data Percent cell count reference ranges are not reported, since discordance with absolute values may lead to misinterpretation of CBC data. Current Interpretive Data was last revised on 2022. Testing performed by: [facility], [place] [address], Medical Office [facility] [address], [place] [address] Lymphocyte pct 24.7 % [facility] ([place]) Comment: Interpretive Data Percent cell count reference ranges are not reported, since discordance with absolute values may lead to misinterpretation of CBC data. Current Interpretive Data was last revised on 2022. Testing performed by: [facility] [place] [address], Medical Office [facility] [address], [place] [address] Monocyte pct 9.0 % [facility] ([place]) Comment: Interpretive Data Percent cell count reference ranges are not reported, since discordance with absolute values may lead to misinterpretation of CBC data. Current Interpretive Data was last revised on 2022. Testing performed by: [facility] [place] [address], Medical Office [facility] [address], [place] [address] Eosinophil pct 1.8 % [facility] ([place]) Comment: Interpretive Data Percent cell count reference ranges are not reported, since discordance with absolute values may lead to misinterpretation of CBC data. Current Interpretive Data was last revised on 2022. Testing performed by: [facility], [place] [address], Medical Office [facility] B [facility] [address], [place] [address] Basophil pct 0.3 % [facility] ([place]) Comment: Interpretive Data Percent cell count reference ranges are not reported, since discordance with absolute values may lead to misinterpretation of CBC data. Current Interpretive Data was last revised on 2022. Testing performed by: [facility] [place] [address], Medical Office [facility] B [facility] [address], [place] [address] Blood 04/23/2025 11:2 0 AM CDT 04/23/2025 11:33 AM CDT us Cheo Ba MD LAB BLOOD ORDERABLES Melissa parra Result [facility] ([place]) 1 [facility] [place] [address] * Thyroid Function Mcduffie (04/23/2025 11:20 AM CDT) TSH 0.55 0.30 - 4.20 mcIUnit/mL Comment:Testing performed by : [facility], [facility], [place], [address] Blood 04/23/2025 11:2 0 AM CDT 04/23/2025 11:42 AM CDT us Cheo Ba MD LAB BLOOD ORDERABLES Melissa parra Result [facility] ([facility]) 1 [facility] Department [place] [address] * CBC with auto differential (04/23/2025 11:20 AM CDT) Pathologist [facility] [place] WBC 6.20 3.80 - 9.90 K/cumm [facility] ([facility]) Comment:Testing performed by : [facility] [place] [address], Medical Office [facility] [address], [place] [address] Hgb 14.8 13.0 - 17.5 g/dL [facility] ([facility]) Comment:Testing performed by : [facility], [place] [address], Medical Office [facility] B [facility] [address], [place] [address] Hct 44.1 38.9 - 50.3 % [facility] ([facility]) Comment:Testing performed by : [facility], [place] [address], Medical Office [facility] B [facility] [address], [place] [address] Plt 194 150 - 400 K/cumm [facility] ([facility]) Comment:Testing performed by : [facility], [place] [address], Medical Office [facility] [address], [place] [address] MPV 10.1 9.1 - 12.3 fL [facility] ([place]) Comment:Testing performed by : [facility], [place] [address], Medical Office [facility] [address], [place] [address] RBC 4.89 4.30 - 5.80 M/cumm [facility] ([place]) Comment:Testing performed by : [facility] [place] [address], Medical Office [facility] [address], [place] [address] MCV 90.2 81.3 - 96.4 fL [facility] ([place]) Comment:Testing performed by : [facility], [place] [address], Medical Office [facility] [address], [place] [address] MCH 30.3 27.1 - 33.3 pg [facility] ([place]) Comment:Testing performed by : [facility] [place] [address], Medical Office [facility] [address], [place] [address] MCHC 33.6 32.3 - 35.7 g/dL [facility] ([place]) Comment:Testing performed by : [facility], [place] [address], Medical Office [facility] [address], [place] [address] RDW CV 13.0 11.1 - 14.9 % [facility] ([place]) Comment:Testing performed by : [facility], [place] [address], Medical Office [facility] [address], [place] [address] RDW SD 44.2 35.7 - 48.1 fL [facility] ([place]) Comment:Testing performed by : [facility] [place] [address], Medical Office [facility] [address], [place] [address] Blood 04/23/2025 11:2 0 AM CDT 04/23/2025 11:33 AM CDT us Cheo Ba MD LAB BLOOD ORDERABLES Melissa parra Result [facility] ([place]) 1 [facility] Department [place] [address] * Comprehensive metabolic panel (04/23/2025 11:20 AM CDT) Sodium 139 135 - 145 mmol/L Comment:Testing performed by : [facility], [place], [address] Potassium, pl 3.6 3.3 - 4.9 mmol/L [facility] ([place]) Comment:Testing performed by : [facility], [place], [address] Chloride 101 97 - 110 mmol/L [facility] ([place]) Comment:Testing performed by : [facility], [place], [address] CO2 25 22 - 32 mmol/L [facility] ([place]) Comment:Testing performed by : [facility], [facility], [place], [address] Anion gap 14 2 - 15 mmol/L [facility] ([place]) Comment:Testing performed by : [facility], [facility], [place], [address] BUN 18 6 - 25 mg/dL [facility] ([place]) Comment:Testing performed by : [facility], [place], [address] Creatinine 0.99 0.80 - 1.30 mg/dL [facility] ([place]) Comment:Testing performed by : [facility], [place], [address] Glucose 104 70 - 199 mg/dL [facility] ([facility]) Comment: Interpretive Data Fasting glucose >/= 126 mg/dl is diagnostic for diabetes. Fasting is defined as no caloric intake for at least 8 hours. Fasting glucose between 100 mg/dl to 125 mg/dl is diagnostic of prediabetes. In a patient with classic symptoms of hyperglycemia or hyperglycemic crisis, a random glucose >/= 200 mg/dl is diagnostic for diabetes. In the absence of unequivocal hyperglycemia, results should be confirmed by repeat testing. The classification and Diagnosis of Diabetes Diabetes Care 202; 46: S19-S40. Current interpretive data was last revised 2022. Testing performed by: [facility], [place], [address] Calcium 9.2 8.5 - 10.3 mg/dL [facility] ([place]) Comment:Testing performed by : [facility], [place], [address] Bilirubin, total 1.0 0.1 - 1.2 mg/dL [facility] ([place]) Comment:Testing performed by : [facility], [place], [address] Protein, pl 7.0 6.5 - 8.5 g/dL [facility] ([place]) Comment:Testing performed by : [facility], [place], [address] Albumin 4.3 3.5 - 5.0 g/dL [facility] ([place]) Comment:Testing performed by : [facility], [place], [address] Alk phos 65 40 - 130 Units/L [facility] ([facility]) Comment:Testing performed by : [facility], [facility], [place], [address] ALT 27 7 - 55 Units/L [facility] ([facility]) Comment:Testing performed by : [facility], [facility], [place], [address] AST 22 10 - 50 Units/L [facility] ([facility]) Comment:Testing performed by : [facility], [facility], [place], [address] Blood 04/23/2025 11:2 0 AM CDT 04/23/2025 11:42 AM CDT us Cheo Ba MD LAB BLOOD ORDERABLES Melissa parra Result [facility] ([facility]) [facility] [facility] Department [place] [address] * MRI Brain W WO Contrast (03/25/2025 2:49 PM CDT) Anatomical Region Laterality Modality Head and Neck N/A Magnetic Resonan ce 03/25/2025 2:58 PM CDT Narrative 03/25/2025 3:10 PM CDT EXAM DESCRIPTION: MRI BRAIN W WO CONTRAST REASON FOR STUDY: Metastatic disease evaluation, Metastatic melanoma of the flank with mets to lymph nodes, assess for further metastasis, scan needed for staging and treatment strategy Metastatic disease evaluation; Metastatic melanoma of the flank with mets to lymph nodes, assess for further metastasis, scan needed for staging and treatment strategy TECHNIQUE: Multiplanar imaging includes noncontrast T1, T2, FLAIR, diffusion with ADC map and post contrast T1 sequences. Additional sequence(s) sensitive to blood products. Images stored on PACS. CONTRAST TYPE/DOSE: 20mL of GADOTERATE MEGLUMINE 0.5 MMOL/ML INTRAVENOUS SOLUTION (SO) injected via intravenous COMPARISON: PET-CT 03/19/2025 FINDINGS: CEREBRUM: No hemorrhage, edema, or mass effect. No abnormal enhancement. WHITE MATTER: Normal. POSTERIOR FOSSA: Brainstem and cerebellum appear unremarkable. No abnormal enhancement. DIFFUSION IMAGING: No recent infarction. EXTRAAXIAL SPACES: No hemorrhage. No mass or abnormal enhancement. BRAIN VOLUME: Within normal limits for age. PITUITARY: Unremarkable. VASCULATURE: No flow disturbance identified. ORBITS: No masses. Globes normal. PARANASAL SINUSES AND MASTOIDS: Mild right frontal sinus mucosal thickening. Trace fluid signal in the right mastoid air cells. Go to vasculature OTHER: No other significant finding. IMPRESSION: No evidence of intracranial metastasis. THIS IS AN ELECTRONICALLY VERIFIED FINAL REPORT 03/25/2025 3:10 PM - Electronically signed by Aleksandar Doe M.D. MZ: ELIJAH Report ID: [id number] Reading Location: [id number] Procedure Note Aleksandar Doe MD - 03/25/2025 EXAM DESCRIPTION: MRI BRAIN W WO CONTRAST REASON FOR STUDY: Metastatic disease evaluation, Metastatic melanoma ofthe flank with mets to lymph nodes, assess for further metastasis, scan neededfor staging and treatment strategy Metastatic disease evaluation; Metastatic melanoma of the flank with metsto lymph nodes, assess for further metastasis, scan needed for staging and treatment strategy TECHNIQUE: Multiplanar imaging includes noncontrast T1, T2, FLAIR,diffusion with ADC map and post contrast T1 sequences. Additional sequence(s)sensitive to blood products. Images stored on PACS. CONTRAST TYPE/DOSE: 20mL of GADOTERATE MEGLUMINE 0.5 MMOL/ML INTRAVENOUS SOLUTION (SO) injected via intravenous COMPARISON: PET-CT 03/19/2025 FINDINGS: CEREBRUM: No hemorrhage, edema, or mass effect. No abnormalenhancement. WHITE MATTER: Normal. POSTERIOR FOSSA: Brainstem and cerebellum appear unremarkable. Noabnormal enhancement. DIFFUSION IMAGING: No recent infarction. EXTRAAXIAL SPACES: No hemorrhage. No mass or abnormal enhancement. BRAIN VOLUME: Within normal limits for age. PITUITARY: Unremarkable. VASCULATURE: No flow disturbance identified. ORBITS: No masses. Globes normal. PARANASAL SINUSES AND MASTOIDS: Mild right frontal sinus mucosalthickening. Trace fluid signal in the right mastoid air cells. Go to vasculature OTHER: No other significant finding. IMPRESSION: No evidence of intracranial metastasis. THIS IS AN ELECTRONICALLY VERIFIED FINAL REPORT 03/25/2025 3:10 PM - Electronically signed by Aleksandar Doe M.D. MZ: MZ Report ID: [id number] Reading Location: [id number] us Cheo Ba MD IMG MRI PROCEDURES Final Result * PET/CT FDG Skull to Thigh (03/19/2025 11:02 AM CDT) Anatomical Region Laterality Modality N/A Positron Emissio n Tomography (PET) 03/19/2025 2:10 PM CDT Impressions 03/19/2025 4:47 PM CDT 1. Moderately FDG avid left axillary lymph node, most likely representing metastatic involvement. 2. 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 3. Postbiopsy changes in the left axilla with a 7 cm soft tissue seroma in the left chest wall. Dictated by: Barbie Dotson MD The radiology attending physician has personally reviewed this study, and had reviewed and/or edited this written report and agrees with it. Electronically signed by: DO Jovanni Nascimento 03/19/2025 4:47 PM CDT EXAMINATION: TUMOR FDG-PET/CT IMAGING DATE OF STUDY: 03/19/2025 SCANNER: Mandaen RADIOPHARMACEUTICAL: 16.57 mCi F-18 Fluorodeoxyglucose (FDG) i.v. Injection site: Right antecubital HISTORY: 59-year-old with melanoma of his left flank status post wide local excision with no residual disease, and biopsy of left axillary sentinel lymph node which showed involvement. Also with history of thyroid cancer treated with excision and radioactive iodine greater than 10 years ago. Initial treatment strategy. TECHNIQUE: The patient's fasting blood glucose level, measured by glucometer before injection of FDG, was 94 mg/dL. After intravenous administration of FDG, noncontrast CT images were obtained for attenuation correction and for fusion with emission PET images to allow for anatomical localization of PET findings. Emission PET images were then obtained. The study was interpreted on the [employer] workstation. The mean liver SUV (reported for software quality assurance specialist purposes) is 2.7. The total scanned area was skull vertex to knees. Images of the body were obtained starting 53 minutes after injection of tracer. All reported SUVs are maximum SUVs, unless otherwise specified. COMPARISON: None DESCRIPTORS OF LESION FDG AVIDITY: Minimal: <= blood pool Mild: > blood pool and <= liver Moderate: > liver and <= 2x SUVmax liver Moderate to marked: >2x SUVmax liver and <= 3x SUVmax liver Marked: > 3x SUVmax liver FINDINGS: Moderately FDG avid 1.2 cm left axillary lymph node in image 129 with high probability of metastatic disease. 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 Additional CT findings: Postbiopsy changes in the left axilla with a minimally avid 7 cm seroma over the left chest wall. Simple renal cysts. Prostatomegaly. Procedure Note Jeremiah Gonzales, - 03/19/2025 EXAMINATION: TUMOR FDG-PET/CT IMAGING DATE OF STUDY: 03/19/2025 SCANNER: Mandaen RADIOPHARMACEUTICAL: 16.57 mCi F-18 Fluorodeoxyglucose (FDG) i.v. Injection site: Right antecubital HISTORY: 59-year-old with melanoma of his left flank status post wide local excision with no residual disease, and biopsy of left axillary sentinel lymph node which showed involvement. Also with history of thyroid cancer treated with excision and radioactive iodine greater than 10 years ago. Initial treatment strategy. TECHNIQUE: The patient's fasting blood glucose level, measured by glucometer before injection of FDG, was 94 mg/dL. After intravenous administration of FDG, noncontrast CT images were obtained for attenuation correction and for fusion with emission PET images to allow for anatomical localization of PET findings. Emission PET images were then obtained. The study was interpreted on the [employer] workstation. The mean liver SUV (reported for software quality assurance specialist purposes) is 2.7. The total scanned area was skull vertex to knees. Images of the body were obtained starting 53 minutes after injection of tracer. All reported SUVs are maximum SUVs, unless otherwise specified. COMPARISON: None DESCRIPTORS OF LESION FDG AVIDITY: Minimal: <= blood pool Mild: > blood pool and <= liver Moderate: > liver and <= 2x SUVmax liver Moderate to marked: >2x SUVmax liver and <= 3x SUVmax liver Marked: > 3x SUVmax liver FINDINGS: Moderately FDG avid 1.2 cm left axillary lymph node in image 129 with high probability of metastatic disease. 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 Additional CT findings: Postbiopsy changes in the left axilla with a minimally avid 7 cm seroma over the left chest wall. Simple renal cysts. Prostatomegaly. IMPRESSION: 1. Moderately FDG avid left axillary lymph node, most likely representing metastatic involvement. 2. 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 3. Postbiopsy changes in the left axilla with a 7 cm soft tissue seroma in the left chest wall. Dictated by: Barbie Dotson MD The radiology attending physician has personally reviewed this study, and had reviewed and/or edited this written report and agrees with it. Electronically signed by: Jeremiah Gonzales DO Choe Ba MD IMG PET PROCEDURES Final Result * Surgical pathology (02/27/2025 2:06 PM CDT) Tissue (Lymph node, excisional biopsy, lymphoma) 02/27/2025 12:02 PM CDT Comment:Lymph node can go in formulin per Dr. Johnson. [place] reading 316 Tissue specimen (specimen) (Soft tissue biopsy) 02/27/2025 12:11 PM CDT Narrative PATHOLOGY [facility] ([facility]YSI) - 03/03/2025 7:07 PM CDT EPIC results best viewed via link to PDF [facility] Department of Pathology [address] [place] [address] Note to Patients: This report may contain a detailed description of human tissue sent by a health care provider to the laboratory for pathologic evaluation. The content of this report is essential for diagnosis and may provide important critical findings. This information may be unfamiliar to patients to review without a medical professional present. It is advised that the patient review this report in the presence of a health care provider who can answer questions and explain the details. Final Report Patient Name: JEOVANNY GUERRERO [address]: [address] [place] [address] , [place], [place] [address] Gender: M : 1965 (Age: 59) Service: Surgery Location: [facility] Hospital #: [id number] Patient Type: [facility] Taken: 02/27/2025 Received: 02/27/2025 Accessioned: 02/27/2025 Reported: 03/03/2025 Physician(s):Jeremiah Johnson M.D. Diagnosis: A. Lymph node, left axilla sentinel, excision: - Metastatic melanoma. - See microscopic description and synoptic report below. B. Skin, left torso, wide excision: - Scar. - No residual melanoma identified. Synoptic Diagnosis: INVASIVE MELANOMA OF THE SKIN: Excision, Re-Excision SPECIMEN Procedure: Lymphadenectomy, regional nodes - Axilla Specimen Laterality: Left TUMOR Tumor Site: Skin of trunk - Left lateral torso REGIONAL LYMPH NODES Regional Lymph Node Status: Tumor present in regional lymph node(s) Method of Detection - Immunohistochemical study, H&E stain Total Number of Lymph Nodes with Tumor - 1 Number of [place] Lymph Nodes with Tumor - 1 Praveen Site(s) with Tumor - Subcapsular, Intraparenchymal Size of Largest [place] Node Metastatic Deposit - At least - 12 mm Extranodal Extension - Present Matted Nodes - Not identified Total Number of Lymph Nodes Examined (sentinel and non-sentinel): 1 Number of [place] Nodes Examined: 1 pTNM CLASSIFICATION (AJCC 8th Edition) Reporting of pT, pN, and (when applicable) pM categories is based on information available to the pathologist at the time the report is issued. As per the AJCC (Chapter 1, 8th Ed.) it is the managing physician's responsibility to establish the final pathologic stage based upon all pertinent information, including but potentially not limited to this pathology report. pN Category: pN1 CAP VERSION: Invasive Melanoma 1.1.0.0 Iker Mohamud M.D. Report Electronically Reviewed and Signed Out By Iker Mohamud M.D. 03/03/2025 19:07:22 Specimen(s) Received: A: Left axillary lymph node B: Left torso melanoma, suture marinelli anterior Microscopic Description: A. Microscopic examination of the left axillary lymph node shows a lymph node that is involved by metastatic malignant melanoma by both routine light microscopy and on review of the positive SOX-10 immunostain (performed with appropriate controls) on each block. The largest continuous subcapsular focus measures at least 12 mm, focal intraparenchymal deposits are also noted. B. Microscopic examination of the left torso wide excision shows an area of scarring, without evidence of residual malignant melanoma. Additional H&E recuts are obtained and show similar features. A Sox 10 immunostain is performed (with appropriate controls) on a community relations representative block and is negative, consistent with the light microscopic impression. Intradepartmental consultation: Dr. Sanderson has reviewed the slides and concur. Clinical History: Melanoma of flank. Excision melanoma left lateral flank - lymph node biopsy, lymphoscintigraphy. Gross Description: The specimen is submitted in two formalin containers labeled JEOVANNY GUERRERO. A. Received in the first container labeled left axillary lymph node. It is a pink-miranda lymph node measuring 2.3 cm. It is sectioned in 2-3 mm increments and entirely submitted in A1 through A4. B. Received in the second container labeled left torso melanoma. It is an elliptical shape piece of miranda skin that is oriented with a suture at one tip. Facing the skin surface with the sutured tip designated as the 12 o'clock position the specimen measures 7.0 cm from 12-6 o'clock, 4.0 cm from 3-9 o'clock and 3.5 cm in depth. The epidermal surface has a scar-like lesion with a red-miranda color measuring 5 mm surrounded by erythematous discoloration and blue dye. It is located at least 7 mm from the nearest margin at 9 o'clock. It is inked 12-3-6 o'clock blue and 6-9-12 o'clock black, sectioned and represented: 12 o'clock half B 1 through B 3, 6 o'clock half B4 through B 6, 12 o'clock tip B7, 6 o'clock tip B8, deep margin B9 and B10. Carlos Westbrook R.N., P.A./Annalise Toro M.D. REPORT IMAGES AND SCANNED DOCUMENTS, IF INCLUDED, ONLY VIEWABLE IN PDF VERSION OF REPORT The performance characteristics of some immunohistochemical stains, fluorescence in-situ hybridization tests and immunophenotyping by flow cytometry cited in this report (if any) were determined by the Surgical Pathology Department at [facility] as part of an ongoing senior quality assurance engineer program and in compliance with federally mandated regulations drawn from the Clinical Laboratory Improvement Act of 1988 (CLIA '88). Some of these tests rely on the use of analyte specific reagents and are subject to specific labeling requirements by the US Food and Drug Administration. Such diagnostic tests may only be performed in a facility that is certified by the Department of Health and Human Services as a high complexity laboratory under CLIA '88. The FDA has determined that such clearance or approval is not necessary. This test is used for clinical purposes. It should not be regarded as investigational or for research. Nevertheless, federal rules concerning the medical use of analyte specific reagents require that the following disclaimer be attached to the report: This test was developed and its performance characteristics determined by the Surgical Pathology Department [facility]. It has not been cleared or approved by the U. S. Food and Drug Administration. Note for decalcified specimens: This assay has not been validated on decalcified tissues. Results should be interpreted with caution given the possibility of false negativity on decalcified specimens Jeremiah Johnson MD LAB PATHOLOGY ORDER RUSSELL Final Result Performing Organization Address City/State/[facility] Co de Phone Number PATHOLOGY [address] [phone] * [place] AN ELECTIVE SUPRAGLOTTIC AIRWAY (02/27/2025 11:20 AM CDT) Narrative David Olivera CRNA - 02/27/2025 11:20 AM CDT David Olivera CRNA 02/27/2025 11:21 AM Airway Patient location: OR Urgency: elective Date/time: 02/27/2025 11:18 AM Indications for airway management: anesthesia and airway protection Difficult airway: no Staff: Placed by: SHAUNNA: David Olivera CRNA Emergent airway documentation: Risks and benefits discussed: yes Consent obtained: yes Consent given by: patient Airway prep: Preoxygenated: yes Patient position: sniffing Mask difficulty assessment: 0 - not attempted Spontaneous ventilation during airway: absent Sedation level during airway: GA Final airway details: Final airway type: supraglottic airway Final supraglottic airway: unique SGA size: 4 Number of attempts: 1 Additional comments: Atraumatic LMA placement. Dentition/lips/oral cavity same as preop us Marquis Rodriguez MD ANESTHESIA ORDERABLES Fi nal Result * NM Lymphoscintigraphy (Skin Cancer) (02/27/2025 9:12 AM CDT) Anatomical Region Laterality Modality N/A Nuclear Medicine 02/27/2025 9:32 AM CDT Addenda Addendum by Yakelin Ly MD on 03/04/2025 5:05 PM CDT ADDENDUM: This addendum report supersedes the original report dated 02/27/2025 FINDINGS: Imaging demonstrates at least 1 draining lymph node(s) in the LEFT axilla . Imaging available for use in the operating room. END OF ADDENDUM REPORT THIS IS AN ELECTRONICALLY VERIFIED FINAL REPORT 03/04/2025 5:05 PM Addendum Electronically signed by Yakelin Quintanilla M.D. FT: FT Report ID: [id number] Reading Location: [id number] Narrative 02/27/2025 9:34 AM CDT EXAM DESCRIPTION: NM LYMPHOSCINTIGRAPHY (SKIN CANCER) RADIOPHARMACEUTICAL: 502 uCi radiopharmaceutical injected intradermally about a left lower flank melanoma. Injection performed by EB . REASON FOR STUDY: MELANOMA LEFT FLANK TECHNIQUE: Multiple planar images were obtained to include whole body images at 60 minutes. COMPARISON: None FINDINGS: Imaging demonstrates at least 1 draining lymph node(s) in the right axilla . Imaging available for use in the operating room. IMPRESSION: [place] node identified for subsequent intraoperative removal with gamma probe guidance. THIS IS AN ELECTRONICALLY VERIFIED FINAL REPORT 02/27/2025 9:34 AM - Electronically signed by Yakelin Quintanilla M.D. FT: FT Report ID: [id number] Reading Location: [id number] Procedure Note Yakelin Ly MD - 02/27/2025 EXAM DESCRIPTION: NM LYMPHOSCINTIGRAPHY (SKIN CANCER) RADIOPHARMACEUTICAL: 502 uCi radiopharmaceutical injected intradermally about a left lower flank melanoma. Injection performed by EB . REASON FOR STUDY: MELANOMA LEFT FLANK TECHNIQUE: Multiple planar images were obtained to include whole bodyimages at 60 minutes. COMPARISON: None FINDINGS: Imaging demonstrates at least 1 draining lymph node(s) in the rightaxilla . Imaging available for use in the operating room. IMPRESSION: [place] node identified for subsequent intraoperative removal with gamma probe guidance. THIS IS AN ELECTRONICALLY VERIFIED FINAL REPORT 02/27/2025 9:34 AM - Electronically signed by Yakelin Quintanilla M.D. FT: FT Report ID: [id number] Reading Location: [id number] us Jeremiah Johnson MD IMG NM PROCEDURES E dited Result - Final * Potassium (02/27/2025 7:48 AM CDT) Potassium, pl 4.0 3.3 - 4.9 mmol/L Blood 02/27/2025 7:48 AM CDT 02/27/2025 7:51 AM CDT us Marquis Rodriguez MD LAB BLOOD ORDERABLES Fin al Result [facility] Department [place] [address] * Surgical pathology (02/13/2025 11:04 AM CDT) Tissue (Miscellaneous) 02/13/2025 11:04 AM CDT 01/28/2025 Narrative [facility] - 02/17/2025 4:05 PM CDT EPIC results best viewed via link to PDF [facility] [address], [place] [address] [email or web address] CONSULT REPORT FINAL Note to Patients: This report may contain a detailed description of human tissue sent by a health care provider to the laboratory for pathologic evaluation. The content of this report is essential for diagnosis and may provide important critical findings. This information may be unfamiliar to patients to review without a medical professional present. It is advised that the patient review this report in the presence of a health care provider who can answer questions and explain the details. PATIENT INFORMATION PATIENT NAME: JEOVANNY GUERRERO SEX: [place] : GABO SPECIMEN INFORMATION COLLECTED: 01/28/2025 RECEIVED: 02/13/2025 REPORTED: 02/17/2025 PHYSICIAN INFORMATION Keo Dodd Jr, M.D.: [facility] [id number], [address] [place] [address], ADDITIONAL PHYSICIANS Inform [place], [place] DERMATOPATHOLOGY REPORT RESULTS DIAGNOSIS: SKIN, LEFT LATERAL ABDOMEN, SHAVE BIOPSY (CASE #: [id number], 4 SLIDES RECEIVED): MALIGNANT MELANOMA, AT LEAST 2.1 MM IN THICKNESS TO THE BASE OF THE BIOPSY, NON-ULCERATED Note: Submitted immunhistochemical stains from the referring institution were reviewed. Lesional cells stain positively for MART-1 and SOX10, supporting the diagnostic impression. CAP Approved Case Summary for Melanoma of the Skin Specimen Procedure: Shave biopsy Tumor Site: Abdomen Laterality: Left Histologic Type: Nodular [place] Depth: At least2.1mm Ulceration: Not identified Mitotic rate: >1/mm2 (18) Microsatellitosis: Cannot be determined Lymphovascular Invasion: Present Neurotropism: Not identified Tumor-infiltrating Lymphocytes: Present, non-brisk Tumor Regression: Not identified Pathologic Staging: Primary Tumor (pT): pT3a Regional Lymph Nodes (pN): pNx Distant Metastasis (pM): N/A mina/spng By this signature, I attest that the above diagnosis is based upon my personal examination of the slides(and/or other material indicated in the diagnosis). William Velasco MD, PhD Report Electronically Reviewed and Signed Out By William Velasco MD, PhD 02/17/2025 16:05:37 CLINICAL INFORMATION MALIGNANT MELANOMA SPECIMEN DATAMICROSCOPIC DESCRIPTION: There is a proliferation of atypical melanocytes arranged as single cells and as nests within the epidermis, at the dermo-epidermal junction and at all levels of the epidermis, and as nests within the dermis, where they extend to the base of the biopsy. (C43.9) GROSS DESCRIPTION: Received for review are 4 slides, including 1 H&E and 3 immunohistochemical/special stained glass slides. The slides are labeled with the original accession [id number], accompanied by a corresponding pathology report. The material originates from [place] ([place]). Clerical Data Follows A; [id number] The characteristics of special, immunohistochemical, and immunofluorescence stains and in-situ hybridization tests performed by the [facility] were deemed acceptable in ongoing senior quality assurance engineer measures and in compliance with regulations drawn from the Clinical Laboratory Improvement Act [id number] (CLIA '88). Control reactions for all stains performed were deemed adequate and appropriate by a pathologist prior to evaluation of patient tissue. Some diagnoses were rendered with the assistance of laboratory-developed tests utilizing analyte-specific reagents; the performance characteristic of these tests were determined by [facility] and are not cleared or approved by the US Food an Drug administration. Laboratory developed test may only be performed in a facility that is certified by the [facility] as a high-complexity laboratory under CLIA '88. These tests are used for clinical purposes and are not investigational. Keo Dodd Jr., MD LAB PATHOLOGY ORDERABLES F inal Result [facility] [address] [place] [address] from Last 3 Months Insurance [employer] Care Teams School Office Assistant Relationship Specialty Start Date End Date Carin Mcgee, EXTENSION WORK INSTRUCTOR [address] [place] [id number] PCP - General Family Medicine 02/18/25 Katie Newell MD [address] [place] [id number] Referring Physician Dermatology 02/05/25
--- OUTSIDE RECORDS SUMMARY | 2025-05-04 01:01 | XMS_ITS | Encounter Summary ---
Author Organization [facility] Healthcare Address [address] [place] [address] Care Team Providers Care Infrastructure Architect Name Role Phone Katie Newell MD Unavailable [phone] Carin Mcgee CHARGEBACK SPECIALIST Primary Care Provider [phone] Encounter Details Date Type Department Care Team (Late st Contact Info) Description 03/06/2025 Results Follow-Up [facility] [address] [place] [address] [address] [place] [address] Jeremiah Johnson MD [address] [place] [address] [address] [place] [address] Surgical pathology Social History Tobacco Use Types Packs/Day Years Used Date Smoking Tobacco: Never Smokeless Tobacco: Never Alcohol Use Standard Drinks/Week Comments Yes 0 (1 standard drink = 0.6 oz pur e alcohol) AUDIT-C Answer Date Recorded Q1: How often do you have a drink containing alc ohol? 2-4 times a month 02/19/2025 Q2: How many drinks containi ng alcohol do you have on a typical day when you are drinking? 1 or 2 02/19/2025 Frequency of Binge Drinking Not on file 05/2025 Personal Safety Answer Date Recorded Have you ever been in or are you currently in a harmful physical or emotional relationship or is someone making you feel afraid or unsafe? 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
--- OUTSIDE RECORDS SUMMARY | 2025-05-04 01:01 | XMS_ITS | Referral Summary ---
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); Melanoma of flank (HCC) 04/23/2025 11:30 AM CDT Infusion [facility] [address] [facility] [address] [place] [address] Melanoma of flank (HCC) (Primary Dx) 04/23/2025 11:15 AM CDT Office Visit [facility] Oncology [address] [place] [address] [address] [place] [address] Cheo Ba MD Melanoma of flank (HCC) (Primary Dx); 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) 04/22/2025 Telephone [facility] Oncology [address] [place] [address] Office [facility] [address] [place] [address] Viky Robb CLT 04/16/2025 Telephone [facility] Oncology [address] [place] [address] [address] [place] [phone] Sharmaine Babin RN 04/07/2025 Orders Only [facility] Oncology [address] [place] [address] [address] [place] [address] Cheo Ba MD 04/07/2025 Orders Only [facility] Oncology [address] [place] [address] Office d[address] [place] [address] Cheo Ba MD Melanoma of flank (HCC) (Primary Dx) 04/07/2025 Orders Only [facility] Oncology [address] [place] [address] Office [facility] [address] [place] [address] Cheo Ba MD Melanoma of flank (HCC) (Primary Dx) 04/02/2025 Telephone [facility] 4 [facility] [address] [place] [address] Cheo Ba MD 03/31/2025 Telephone [facility] Oncology [address] [place] [address] Office [facility] [address] [place] [address] Sharmaine Babin, JENNIFER 03/27/2025 1:15 PM CDT Office Visit [facility] Surgery [address] [place] [address] [address] [place] [address] Seema Gutierrez MD 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) 03/25/2025 1:57 PM CDT - 03/25/2025 11:59 PM CDT Hospital Encounter [facility] [address] [place] [address] 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); Melanoma of flank (HCC) Discharge Disposition: Discharge to home or self care 03/23/2025 Telephone [facility] Surgery [address] [place] [address] Floor 5 [place] [address] Erin Ng RN 03/23/2025 Telephone [facility] Oncology [address] [place] [address] Office d[address] [place] [address] Cheryl Velasco CLT 03/19/2025 9:20 AM CDT - 03/19/2025 11:59 PM CDT Hospital Encounter [facility] [address] [place] [address] 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); Melanoma of flank (HCC) Discharge Disposition: Discharge to home or self care 03/17/2025 1:30 PM CDT Office Visit [facility] Oncology [address] [place] [address] [address] [place] [address] Cheo Ba MD 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); Melanoma of flank (HCC) 03/12/2025 11:00 AM CDT Office Visit [address] [place] [address] Jeremiah Johnson MD Melanoma of flank (HCC) (Primary Dx) 03/10/2025 Telephone [facility] Oncology [facility] 5 [place] [address] Jessie Fisher 03/06/2025 Telephone [facility] Oncology [address] [place] [address] [address] [place] [address] Cheryl Velasco CLT 03/06/2025 Orders Only [address] [place] [address] Suri Meyer RN Melanoma of flank (HCC) (Primary Dx) 03/06/2025 Results Follow-Up [address] [place] [address] Jeremiah Johnson MD Surgical pathology 02/27/2025 6:55 AM CDT - 02/27/2025 11:59 PM CDT Hospital Encounter [facility] [address] [place] [address] Skin cancer of trunk Discharge Disposition: Discharge to home or self care 02/27/2025 10:40 AM CDT - 02/27/2025 11:55 AM CDT Surgery [facility] Operating Room 1 [place] [address] Jeremiah Johnson MD EXCISION MELANOMA LEFT LATERAL FLANK - LYMPH NODE BIOPSY- NM LYMPHOSCINTIGRAPHY 02/27/2025 11:12 AM CDT Anesthesia Event [facility] [address] [place] [address] Marquis Rodriguez MD Kory, Christopher James, MD 02/27/2025 6:55 AM CDT - 02/27/2025 2:30 PM CDT Hospital Encounter [facility] [address] [place] [address] Jeremiah Johnson MD Melanoma of flank (HCC) Discharge Disposition: Discharge to home or self care 02/18/2025 Orders Only [facility] [address] [place] [address] [address] [place] [address] Jeremiah Johnson MD Skin cancer of trunk (Primary Dx) 02/18/2025 10:00 AM CDT Office Visit [address] [place] [address] EyeYoselin allen NP Melanoma of flank (HCC) 02/13/2025 Orders Only [facility] [place] [address] Keo Dodd Jr., MD Malignant melanoma of abdomen (HCC) 02/09/2025 Orders Only [facility] Surgery [address] [facility] 8 [place] [address] Keo Dodd Jr., MD Malignant melanoma of abdomen (HCC) (Primary Dx) from Last 3 Months Allergies No known active allergies Medications lisinopril-hydr [...] gland 02/28/2014 Overview (01/19/2017): MALIGN NEOPL THYROID Immunizations Immunization Administration Dates Next Due COVID-19 MRNA (MODERNA) .5 M L (50 MCG) VACCINE (12 YEARS AND UP) 07/23/2024 Influenza, Quadrivalent, Elizabeth l Culture-based MDCK, Preservative Free, Antibiotic Free, Intramuscular 07/20/2022 Influenza, Trivalent, IM (MDV) 07/27/2021,2013 Influenza, Unspecified 07/23/2024 ZOSTER Recombinant 07/20/2022 Social History Tobacco Use Types Packs/Day Years [...] on file 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 Gender Identity Not on file Sexual Orientation [...] 04/23/2025 11:30 AM CDT Plan of Treatment Not on file Procedures Procedure Name Priority Date/Time Associated Diagnosis [...] 06 PM CDT Melanoma of flank (HCC) AK AN ELECTIVE SUPRAGLOTTIC AIRWAY Routine 02/27/2025 11:20 [...] AM CDT [facility] [email or web address] 04/30/2025 10:40 AM CDT [facility] Comment:[facility] link Low Coverage Regions ERRFI1, JAK1, KMT2A, MSH3, SPOP, TERT, TSC2 04/30/2025 10:40 AM CDT [facility] Tumor Mutational [place] 0.0 m/MB 04/30/2025 10:40 AM CDT [facility] [...] that were not included in this document. Cheo Ba MD LAB GENETIC TESTING Final Result [facility] [address] [facility], [address] [place] [address] [facility] [address] [place] [address] * eGFR (04/23/2025 11:20 AM CDT) eGFR [...] was last reviewed 2021. Testing performed by: [facility], [address] [facility], [place], [address] Blood 04/23/2025 11:2 0 AM CDT 04/23/2025 11:42 AM CDT us Cheo Ba MD LAB BLOOD ORDERABLES Melissa parra Result [facility] ([place]) 1 [facility] [place] [address] * Differential, auto (04/23/2025 11:20 AM CDT) Neutrophil abs 3.97 1.50 - 6.50 K/cumm [facility] ([place]) Comment:Testing performed by : [facility] [address], Medical Office [facility] [address], [place] [address] Imm gran abs 0.01 0.00 - 0.10 K/cumm [facility] ([place]) Comment:Testing performed by : [facility] [address], Medical Office [facility] [address], [place] [address] Lymphocyte abs 1.53 0.80 - 3.30 K/cumm [facility] ([place]) Comment:Testing performed by : [facility] [address], Medical Office [facility] [address], [place] [address] Monocyte abs 0.56 0.20 - 0.80 K/cumm [facility] ([place]) Comment:Testing performed by : [facility] [address], Medical Office [facility] B [facility] 132, [place] [address] Eosinophil abs 0.11 0.00 - 0.50 K/cumm [facility] ([place]) Comment:Testing performed by : [facility] [address], Medical Office [facility] [address], [place] [address] Basophil abs 0.02 0.00 - 0.10 K/cumm [facility] ([place]) Comment:Testing performed by : [facility] [address], Medical Office [facility] [address], [place] [address] Neutrophil pct 64.0 % [facility] ([place]) Comment: Interpretive Data Percent cell count reference ranges are not reported, since discordance with absolute values may lead to misinterpretation of CBC data. Current Interpretive Data was last revised on 2022. Testing performed by: [facility] [address], Medical Office [facility] [address], [place] [address] Imm gran pct 0.2 % [facility] ([place]) Comment: Interpretive Data Percent cell count reference ranges are not reported, since discordance with absolute values may lead to misinterpretation of CBC data. Current Interpretive Data was last revised on 2022. Testing performed by: [facility] [address], Medical Office [facility] [address], [place] [address] Lymphocyte pct 24.7 % [facility] ([place]) Comment: Interpretive Data Percent cell count reference ranges are not reported, since discordance with absolute values may lead to misinterpretation of CBC data. Current Interpretive Data was last revised on 2022. Testing performed by: [facility] [address], Medical Office [facility] 132, [place] [address] Monocyte pct 9.0 % [facility] ([place]) Comment: Interpretive Data Percent cell count reference ranges are not reported, since discordance with absolute values may lead to misinterpretation of CBC data. Current Interpretive Data was last revised on 2022. Testing performed by: [facility] [address], Medical Office [facility] [address], [place] [address] Eosinophil pct 1.8 % [facility] ([place]) Comment: Interpretive Data Percent cell count reference ranges are not reported, since discordance with absolute values may lead to misinterpretation of CBC data. Current Interpretive Data was last revised on 2022. Testing performed by: [facility] [address], Medical Office [facility] [address], [place] [address] Basophil pct 0.3 % [facility] ([place]) Comment: Interpretive Data Percent cell count reference ranges are not reported, since discordance with absolute values may lead to misinterpretation of CBC data. Current Interpretive Data was last revised on 2022. Testing performed by: [facility] [address], Medical Office [facility] [address], [place] [address] Blood 04/23/2025 11:2 0 AM CDT 04/23/2025 11:33 AM CDT Cheo Ba MD LAB BLOOD ORDERABLES Melissa l Result [facility] ([place]) 1 [facility] Department [place] [address] * Thyroid Function Leake (04/23/2025 11:20 AM CDT) TSH 0.55 0.30 - 4.20 mcIUnit/mL Comment:Testing performed by : [facility], [address] [facility], [place], [address] Blood 04/23/2025 11:2 0 AM CDT 04/23/2025 11:42 AM CDT us Cheo Ba MD LAB BLOOD ORDERABLES Melissa l Result [facility] ([place]) 1 [facility] Department [place] [address] * CBC with auto differential (04/23/2025 11:20 AM CDT) WBC 6.20 3.80 - 9.90 K/cumm [facility] ([place]) Comment:Testing performed by : [facility] [address], Medical Office [facility] [address], [place] [address] Hgb 14.8 13.0 - 17.5 g/dL [facility] ([place]) Comment:Testing performed by : [facility] [address], Medical Office [facility] B [address], [place] [address] Hct 44.1 38.9 - 50.3 % [facility] ([place]) Comment:Testing performed by : [facility] [address], Medical Office [facility] [address], [place] [address] Plt 194 150 - 400 K/cumm [facility] ([place]) Comment:Testing performed by : [facility] [address], Medical Office [facility] [address], [place] [address] MPV 10.1 9.1 - 12.3 fL [facility] ([place]) Comment:Testing performed by : [facility] Infusion [facility] [address], Medical Office [facility] [address], [place] [address] RBC 4.89 4.30 - 5.80 M/cumm [facility] ([place]) Comment:Testing performed by : [facility] [address], Medical Office [facility] [address], [place] [address] MCV 90.2 81.3 - 96.4 fL [facility] ([place]) Comment:Testing performed by : [facility] [address], Medical Office [facility] B [facility] 132, [place] [address] MCH 30.3 27.1 - 33.3 pg [facility] ([place]) Comment:Testing performed by : [facility] [address], Medical Office [facility] [address], [place] [address] MCHC 33.6 32.3 - 35.7 g/dL [facility] ([place]) Comment:Testing performed by : [facility] [address], Medical Office [facility] B [facility] [address], [place] [address] RDW CV 13.0 11.1 - 14.9 % [facility] ([place]) Comment:Testing performed by : [facility] [address], Medical Office [facility] [address], [place] [address] RDW SD 44.2 35.7 - 48.1 fL [facility] ([place]) Comment:Testing performed by : [facility] [address], Medical Office [facility] [address], [place] [address] Blood 04/23/2025 11:2 0 AM CDT 04/23/2025 11:33 AM CDT us Cheo Ba MD LAB BLOOD ORDERABLES Melissa parra Result [facility] ([place]) 1 [facility] Department [place] [address] * Comprehensive metabolic panel (04/23/2025 11:20 AM CDT) Sodium 139 135 - 145 mmol/L Comment:Testing performed by : [facility], [facility], [place], [address] Potassium, pl 3.6 3.3 - 4.9 mmol/L [facility] ([place]) Comment:Testing performed by : [place], [address] Chloride 101 97 - 110 mmol/L [facility] ([place]) Comment:Testing performed by : [facility], [place], [address] CO2 25 22 - 32 mmol/L [facility] ([place]) Comment:Testing performed by : [facility], [place], [address] Anion gap 14 2 - 15 mmol/L [facility] ([place]) Comment:Testing performed by : [facility], [place], [address] BUN 18 6 - 25 mg/dL [facility] ([place]) Comment:Testing performed by : [place], [address] Creatinine 0.99 0.80 - 1.30 mg/dL [facility] ([place]) Comment:Testing performed by : [place], [address] Glucose 104 70 - 199 mg/dL [facility] ([place]) Comment: Interpretive Data Fasting glucose >/= 126 [...] was last revised 2022. Testing performed by: [facility], [facility], [place], [address] Calcium 9.2 8.5 - 10.3 mg/dL [facility] ([place]) Comment:Testing performed by : [facility], [place], [address] Bilirubin, total 1.0 0.1 - 1.2 mg/dL [facility] ([place]) Comment:Testing performed by : [facility], [place], [address] Protein, pl 7.0 6.5 - 8.5 g/dL [facility] ([place]) Comment:Testing performed by : [facility], [place], [address] Albumin 4.3 3.5 - 5.0 g/dL [facility] ([place]) Comment:Testing performed by : [facility], [place], [address] Alk phos 65 40 - 130 Units/L [facility] ([place]) Comment:Testing performed by : [facility], [place], [address] ALT 27 7 - 55 Units/L [facility] ([place]) Comment:Testing performed by : [place], [address] AST 22 10 - 50 Units/L [facility] ([place]) Comment:Testing performed by : [facility], [place], [address] Blood 04/23/2025 11:2 0 AM CDT 04/23/2025 11:42 AM CDT us Cheo Ba MD LAB BLOOD ORDERABLES Melissa parra Result [facility] ([place]) 1 [facility] Department [place] [address] * MRI Brain W WO Contrast (03/25/2025 [...] Aleksandar Doe M.D. MZ: ELIJAH Report ID: [id number] Reading Location: [id number] Procedure Note Aleksandar Doe MD - 03/25/2025 [...] Aleksandar Doe M.D. MZ: ELIJAH Report ID: [id number] Reading Location: [id number] Cheo Ba MD IMG MRI PROCEDURES Final [...] FDG-PET/CT IMAGING DATE OF STUDY: 03/19/2025 SCANNER: [facility] RADIOPHARMACEUTICAL: 16.57 mCi F-18 Fluorodeoxyglucose (FDG) i.v. [...] obtained. The study was interpreted on the [place] workstation. The mean liver SUV (reported for director quality assurance purposes) is 2.7. The total scanned area [...] Simple renal cysts. Prostatomegaly. Procedure Note Jeremiah Gonzales DO - 03/19/2025 EXAMINATION: TUMOR FDG-PET/CT IMAGING DATE OF STUDY: 03/19/2025 SCANNER: [facility] RADIOPHARMACEUTICAL: 16.57 mCi F-18 Fluorodeoxyglucose (FDG) i.v. [...] obtained. The study was interpreted on the [place] workstation. The mean liver SUV (reported for director quality assurance purposes) is 2.7. The total scanned area [...] it. Electronically signed by: Jeremiah Gonzales DO us Cheo Ba MD IMG PET PROCEDURES Final Result * Surgical pathology (02/27/2025 2:06 PM CDT) Tissue (Lymph node, excisional biopsy, lymphoma) 02/27/2025 12:02 PM CDT Comment:Lymph node can go in formulin per Dr. Johnson. [place] reading 316 Tissue specimen (specimen) (Soft tissue biopsy) 02/27/2025 12:11 PM CDT Narrative [facility] ([place]) - 03/03/2025 7:07 PM CDT EPIC results best viewed via link to PDF [facility] Department of Pathology [address] [place], [place] [id number] Note to Patients: This report may contain [...] Final Report Patient Name: JEOVANNY GUERRERO Address: [address] [place] [address] , [place] [address] Gender: M : 1965 (Age: 59) Service: Surgery Location: [facility] Hospital #: [id number] Patient Type: [facility] Taken: 02/27/2025 Received: 02/27/2025 Accessioned: 02/27/2025 [...] Nodes with Tumor - 1 Number of [place] Lymph Nodes with Tumor - 1 [place] Site(s) with Tumor - Subcapsular, Intraparenchymal Size of Largest [place] Node Metastatic Deposit - At least - 12 mm Extranodal Extension - Present Matted Nodes - Not identified Total Number of Lymph Nodes Examined (sentinel and non-sentinel): 1 Number of [place] Nodes Examined: 1 pTNM CLASSIFICATION (AJCC 8th [...] is performed (with appropriate controls) on a pharmaceutical sales representative block and is negative, consistent with [...] determined by the Surgical Pathology Department at [facility] as part of an ongoing quality improvement consultant program and in compliance with federally mandated [...] characteristics determined by the Surgical Pathology Department [facility]. It has not been cleared or approved by the U. S. Food and Drug Administration. Note for decalcified specimens: This assay has not been validated on decalcified tissues. Results should be interpreted with caution given the possibility of false negativity on decalcified specimens Jeremiah Johnson MD LAB PATHOLOGY ORDER RUSSELL Final Result [facility]Y [facility] [place]) 1 [place] [address] * AK AN ELECTIVE SUPRAGLOTTIC AIRWAY (02/27/2025 11:20 AM CDT) Narrative David Olivera CRNA - 02/27/2025 11:20 AM CDT David Olivera CRNA 02/27/2025 11:21 AM Airway Patient location: OR Urgency: elective Date/time: 02/27/2025 11:18 AM Indications for airway management: anesthesia and airway protection Difficult airway: no Staff: Placed by: CHUCKING MACHINE SET UP OPERATOR TOOL: David Olivera CRNA Emergent airway documentation: Risks [...] Yakelin Quintanilla M.D. FT: FT Report ID: [id number] Reading Location: [id number] Narrative 02/27/2025 9:34 AM CDT EXAM DESCRIPTION: [...] for use in the operating room. IMPRESSION: [place] node identified for subsequent intraoperative removal with gamma probe guidance. THIS IS AN ELECTRONICALLY VERIFIED FINAL REPORT 02/27/2025 9:34 AM - Electronically signed by Yakelin Quintanilla M.D. FT: FT Report ID: [id number] Reading Location: [id number] Procedure Note Yakelin Ly MD - 02/27/2025 [...] for use in the operating room. IMPRESSION: [place] node identified for subsequent intraoperative removal with gamma probe guidance. THIS IS AN ELECTRONICALLY VERIFIED FINAL REPORT 02/27/2025 9:34 AM - Electronically signed by Yakelin Quintanilla M.D. FT: FT Report ID: [id number] Reading Location: [id number] Jeremiah Johnson MD [facility] NM PROCEDURES E dited Result - Final * Potassium (02/27/2025 7:48 AM CDT) Potassium, pl 4.0 3.3 - 4.9 mmol/L Blood 02/27/2025 7:48 AM CDT 02/27/2025 7:51 AM CDT us Marquis Rodriguez MD LAB BLOOD ORDERABLES Fin al Result [facility] ([place]) 1 [facility] Department [place] [address] * Surgical pathology (02/13/2025 11:04 AM CDT) Tissue (Miscellaneous) 02/13/2025 11:04 AM CDT 01/28/[address] [facility] PATHOLOGY LAB - 02/17/2025 4:05 PM CDT EPIC results best viewed via link to PDF [facility] [address] [place] [address], [address], [place] [address] [email or web address] CONSULT REPORT FINAL Note to Patients: This [...] PATIENT NAME: JEOVANNY GUERRERO SEX: [place] : DOVINAY SPECIMEN INFORMATION COLLECTED: 01/28/2025 RECEIVED: 02/13/2025 REPORTED: 02/17/2025 PHYSICIAN INFORMATION Keo Dodd Jr, M.D.: [facility] [id number], [address] [place] [address], ADDITIONAL PHYSICIANS Inform [facility], [place], [place] DERMATOPATHOLOGY REPORT RESULTS DIAGNOSIS: SKIN, LEFT LATERAL ABDOMEN, SHAVE BIOPSY (CASE #: [id number], 4 SLIDES RECEIVED): MALIGNANT MELANOMA, AT LEAST [...] are labeled with the original accession [id number], accompanied by a corresponding pathology report. The material originates from [employer] ([place]). Clerical Data Follows A; [id number] The characteristics of special, immunohistochemical, and immunofluorescence stains and in-situ hybridization tests performed by the [facility] were deemed acceptable in ongoing quality improvement consultant measures and in compliance with regulations drawn from the Clinical Laboratory Improvement Act [id number] (CLIA '88). Control reactions for all stains performed were deemed adequate and appropriate by a pathologist prior to evaluation of patient tissue. Some diagnoses were rendered with the assistance of laboratory-developed tests utilizing analyte-specific reagents; the performance characteristic of these tests were determined by [facility] and are not cleared or approved by the [place] Food an Drug administration. Laboratory developed test may only be performed in a facility that is certified by the [facility] as a high-complexity laboratory under CLIA '88. These tests are used for clinical purposes and are not investigational. Keo Dodd Jr., MD LAB PATHOLOGY ORDERABLES F inal Result [facility] PATHOLOGY LAB [address] [facility] [address] [place] [address] from Last 3 Months Insurance [employer] Care Teams Data Network Architect Relationship Specialty Start Date End Date Carin Mcgee, TALCER [address] [place] [id number] PCP - General Family Medicine 02/18/25 Katie Newell MD [address] [place] [id number] Referring Physician Dermatology 02/05/25
[2025-05-04 06:15] VITALS: BP 109/73; PULSE 67; RESP 20; TEMP 36.6; O2SAT 100; BMI 36.1
[2025-05-04] MEDS: LACTATED RINGERS 1,000 ML 150 ML IV CONT (06:35)
--- NOTE | 2025-05-04 07:23 | PM.IMHP ---
H&P: HPI History of Present Illness Date/Time: 05/04/25 07:23 Chief Complaint: History of colon polyps Narrative: The patient has a history of colonic polyps, the last colonoscopy was Review of Systems Review of Systems: All systems reviewed & are unremarkable except as noted in HPI and below PMFSH Past Medical History Medical History (Updated 01/12/25 @ 17:03 by Chelsy Cassidy MA) Encounter for administration of vaccine Mixed hyperlipidemia Thyroid cancer AC (generalized anxiety disorder) Benign essential HTN Surgical History Surgical History H/O: vasectomy Hx of colonoscopy 2018- repeat in 5 years S/P thyroidectomy Family History Family History Mother Patient's mother is in good health Asthma Father Patient's father is in good health Sibling Patient's sister is in good health Social History Social History Social History: Smoking packs per day: 0.5 Smoking cigarettes per day: 10.0 Years smoked: 14 Smoking pack-years: 7.00 Smoking status: Former smoker Tobacco type: cigarettes Second hand tobacco smoke exposure: No Smoking end date: 10/15/94 Alcohol intake: current Drinks per week: 2 Substance use: never Substance use type: does not use Do You Feel Safe in your Home?: Yes Lack of Transportation: No Lack of Food: Never True Current Housing: I Have Housing Concerned About Future Housing: No Difficulty Paying Gas/Electric Bills: No Difficulty Paying for Meds: No Currently Unemployed: No Education: High School Diploma/GED Difficulty w/ Childcare or Family Care: No Living arrangements: with family Occupation/Education: occupation Gender identity (if verbalized by the patient): Male Sexual Orientation (if Verbalized by the Patient): Straight or Heterosexual Meds Home Medications and Allergies Home Medications ?Medication ?Instructions ?Recorded ?Confirmed ?Type cholecalciferol (vitamin D3) 1,250 1,250 mcg PO MONTHLY 11/24/24 05/04/25 History mcg (50,000 unit) capsule hydrocortisone acetate 25 mg 25 mg RECTAL BID #12 ea 12/05/24 05/04/25 Rx rectal suppository (Anusol-HC) hydrocortisone acetate 25 mg 25 mg RECTAL BID #12 ea 12/25/24 05/04/25 Rx rectal suppository (Anusol-HC) bupropion HCl 150 mg 24 hr tablet, See Rx Instructions .Route 01/12/25 05/04/25 Rx extended release .COMPLEX #90 tabs levothyroxine 175 mcg tablet See Rx Instructions .Route 01/12/25 05/04/25 Rx (Synthroid) .COMPLEX #90 tabs lisinopril 10 See Rx Instructions .Route 01/12/25 05/04/25 Rx mg-hydrochlorothiazide 12.5 mg .COMPLEX #90 tabs tablet rosuvastatin 20 mg tablet See Rx Instructions .Route 01/12/25 05/04/25 Rx .COMPLEX #90 tabs Allergies Allergy/AdvReac Type Severity Reaction Status Date / Time No Known Allergies Allergy Verified 05/04/25 06:21 Vital Signs Vital Signs - 24 hr 05/04/25 06:15 Temperature 97.9 F Pulse Rate 67 Respiratory Rate 20 Blood Pressure 109/73 Pulse Oximetry 100 Oxygen Delivery Room Air Exam Const: General: cooperative and healthy appearing Resp: Effort & Inspection: normal respiratory effort and able to speak in complete sentences Auscultation: clear to auscultation bilaterally Cardio: Rate: regular rate Rhythm: regular rhythm GI: Inspection: normal to inspection GI Palp: No No hepatosplenomegaly present Auscultation: normal bowel sounds Rectal Exam: deferred Skin: General skin exam: normal color Psych: Appearance: grossly normal Mental Status: mental status grossly normal Assessment and Plan Assessment and plan (1) History of colon polyps: Code(s): Z86.010 - Personal history of colon polyps Status: Acute Assessment and Plan: The patient is deemed a good candidate for the procedure. Consent signed. Will proceed.
--- NOTE | 2025-05-04 07:24 | P.PNAN_ITS ---
Anes - Initial Pre Proc Eval Procedure: Operation Date: 05/04/25 07:30 Proposed Procedures p Screening Colonoscopy - Nghia Carrion MD Date/Time: 05/04/25 07:24 Surgeon: Nghia Carrion MD Pre Op Diagnosis: Screening Patient Data Age: 59 Gender: M Height: 1.75 m Weight: 110.8 kg Last Vital Signs Temp 97.9 F 05/04/25 06:15 Pulse 67 05/04/25 06:15 Resp 20 05/04/25 06:15 BP 109/73 05/04/25 06:15 Pulse Ox 100 05/04/25 06:15 O2 Del Method Room Air 05/04/25 06:15 Allergies Allergy/AdvReac Type Severity Reaction Status Date / Time No Known Allergies Allergy Verified 05/04/25 06:21 Home Medications ?Medication ?Instructions ?Recorded ?Confirmed ?Type cholecalciferol (vitamin D3) 1,250 1,250 mcg PO MONTHLY 11/24/24 05/04/25 History mcg (50,000 unit) capsule hydrocortisone acetate 25 mg 25 mg RECTAL BID #12 ea 12/05/24 05/04/25 Rx rectal suppository (Anusol-HC) hydrocortisone acetate 25 mg 25 mg RECTAL BID #12 ea 12/25/24 05/04/25 Rx rectal suppository (Anusol-HC) bupropion HCl 150 mg 24 hr tablet, See Rx Instructions .Route 01/12/25 05/04/25 Rx extended release .COMPLEX #90 tabs levothyroxine 175 mcg tablet See Rx Instructions .Route 01/12/25 05/04/25 Rx (Synthroid) .COMPLEX #90 tabs lisinopril 10 See Rx Instructions .Route 01/12/25 05/04/25 Rx mg-hydrochlorothiazide 12.5 mg .COMPLEX #90 tabs tablet rosuvastatin 20 mg tablet See Rx Instructions .Route 01/12/25 05/04/25 Rx .COMPLEX #90 tabs Patient hx anesthesia problems: none Family hx anesthesia problems: none Results Review: All pre-operative results and documents have been reviewed as part of the pre- operative evaluation. [facility] Past Medical History Medical History (Updated 01/12/25 @ 17:03 by Chelsy Cassidy MA) Encounter for administration of vaccine Mixed hyperlipidemia Thyroid cancer AC (generalized anxiety disorder) Benign essential HTN Surgical History Surgical History H/O: vasectomy Hx of colonoscopy 2018- repeat in 5 years S/P thyroidectomy Family History Family History Mother Patient's mother is in good health Asthma Father Patient's father is in good health Sibling Patient's sister is in good health Social History Social History Social History: Smoking packs per day: 0.5 Smoking cigarettes per day: 10.0 Years smoked: 14 Smoking pack-years: 7.00 Smoking status: Former smoker Tobacco type: cigarettes Second hand tobacco smoke exposure: No Smoking end date: 10/15/94 Alcohol intake: current Drinks per week: 2 Substance use: never Substance use type: does not use Do You Feel Safe in your Home?: Yes Lack of Transportation: No Lack of Food: Never True Current Housing: I Have Housing Concerned About Future Housing: No Difficulty Paying Gas/Electric Bills: No Difficulty Paying for Meds: No Currently Unemployed: No Education: High School Diploma/GED Difficulty w/ Childcare or Family Care: No Living arrangements: with family Occupation/Education: occupation Gender identity (if verbalized by the patient): Male Sexual Orientation (if Verbalized by the Patient): Straight or Heterosexual Anes - Eval Final PreProcedure Day of Procedure 05/04/25 07:24 Patient weight: obese Heart: regular rate and rhythm Lungs: clear to auscultation Airway: Mallampati scale class II Neurological: alert and oriented Last oral intake: >/= 8 hours ASA classification: III Emergent: no Anesthetic plan: proceed Anesthesia type and monitoring: general GIVS and standard monitoring Results Review: All pre-operative results and documents have been reviewed as part of the pre- operative evaluation. Informed Consent: The patient's anesthetic plan and its attendant risks and benefits were discussed with the patient/family/POA. Questions were solicited and answers provided to the satisfaction of the patient/family/POA.
[2025-05-04] MEDS: SIMETHICONE ORAL SUSPENSION 20 MG/0.3 ML 30 ML BOTTLE 0.6 ML IRRIGATION (07:40)
[2025-05-04 07:55] VITALS: BP 97/69; PULSE 74; RESP 22; O2SAT 96
[2025-05-04 08:05] VITALS: BP 113/73; PULSE 78; RESP 20; O2SAT 99
[2025-05-04 08:15] VITALS: BP 121/73; PULSE 71; RESP 17; O2SAT 98
== END 2025-05-04 08:22 | disposition home or self-care (01) ==
PROVIDERS: PCP Nurse Practitioner Family; Referring Provider Student in an Organized Health Care Education/Training Program; Visit Provider Internal Medicine Gastroenterology
PROC: 0DJD8ZZ Inspection of Lower Intestinal Tract, Via Natural or Artificial Opening Endoscopic (ICD-10-PCS; CPT 45378; principal; 2025-05-04 07:30)
DX: Z12.11 Encounter for screening for malignant neoplasm of colon (principal); K64.8 Other hemorrhoids; Z86.0100 Personal history of colon polyps, unspecified; Z87.891 Personal history of nicotine dependence; E66.9 Obesity, unspecified; Z68.36 Body mass index [BMI] 36.0-36.9, adult
CPT/HCPCS: 45378; J2003; J2704; J7120

== ENCOUNTER 2025-06-19 23:28 | Emergency (ER) | payer OTHER, SELFPAY ==
--- OUTSIDE RECORDS SUMMARY | 2025-06-19 23:30 | XMS_ITS | Encounter Summary ---
Author Organization [facility] Address [address] [place] [address] Phone Care Team Providers Care Stacker Attendant Name Role Phone Katie Newell MD Unavailable [phone] Carin Mcgee [employer] Primary Care Provider [phone] Encounter Details Date Type Department Care Team (Late st Contact Info) Description 06/19/2025 Telephone [facility] Medicine Oncology [address] [place] [address] Miracle Reeves, RN Social History Tobacco Use Types Packs/Day Years Used Date Smoking Tobacco: Former Cigarettes Smokeless Tobacco: Never Alcohol Use Standard Drinks/Week [...] on file 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 He is s/p two cycles of pembrolizumab. He reports that since Sunday he has developed excessive thirst and frequent urination. It has not improved and has worsened since Sunday. Discussed concern for IO related diabetes in this patient with no history of diabetes and need for urgent evaluation. He would prefer to go to [facility] in [place], [place]. Report called to ED. Primary Oncology team notified via [employer] I/O. documented in this encounter Plan of Treatment Not on file documented as of this encounter Visit Diagnoses Not on filedocumented in this encounter Care Teams Stacker Attendant Relationship Specialty Start Date End Date Carin Mcgee, [employer] [address] [place] [address] PCP - General Family Medicine 02/18/25 Katie Newell MD [address] [place] [id number] Referring Physician Dermatology 02/05/25 documented as of this encounter
--- OUTSIDE RECORDS SUMMARY | 2025-06-19 23:30 | XMS_ITS | Clinical Summary ---
Author Organization [facility] Medical Office Building B Address [address] [place] [address] Care Team Providers Care Employment Office Clerk Name Role Phone Katie Newell MD Unavailable [phone] Carin Mcgee PHOTO MANAGER Primary Care Provider [phone] Allergies No known active allergies Medications lisinopril-hydr oCHLOROthiazide (PRINZIDE,ZESTO RETIC) 10-12.5 mg per tabletIndicatio ns:hypertension Take 1 tablet by mouth daily 04/30/2017 Active buPROPion XL (WELLBUTRIN XL) 150 mg 24 hr tablet Take 1 tablet (150 mg total) by mouth every morning 06/26/2017 Active rosuvastatin (CRESTOR) 20 mg tablet Take 1 tablet (20 mg total) by mouth daily 08/08/2022 Active levothyroxine (SYNTHROID) 175 mcg tablet Take 1 tablet (175 mcg total) by mouth daily 90 tablet 3 11/20/2022 Active omega-3 fatty acids-fish oil 300-1,000 mg capsule Take 2 capsules (2 g total) by mouth daily Active calcium carbonate-vitam in D3 2,500 mg (1,000 mg elemental)-800 unit tablet Take 1 each by mouth daily Active cholecalciferol (VITAMIN D-3) 50,000 unit capsule Take 1 capsule (50,000 Units total) by mouth 03/29/2025 Active Active Problems Problem Noted Date Diagnosed Date [...] Encounters Date Type Department Care Team Description 06/19/[address] [facility] [address] [place] [phone] Miracle Reeves RN 06/10/2025 2:00 PM CDT [address] [place] [address] Malik Bradford RN Melanoma of flank (HCC) (Primary Dx) 06/09/2025 2:45 PM CDT Office Visit 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 [address] [place] [address] Medical Office dg [address] [place] [address] Cheo Ba MD 04/23/2025 11:30 AM CDT Infusion [address] [place] [address] Melanoma of flank (HCC) (Primary Dx) 04/23/2025 11:15 AM CDT Office Visit [facility] [address] [place] [address] Office [facility] [address] [place] [address] Cheo Ba MD Melanoma of flank (HCC) (Primary Dx); 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) 04/23/2025 10:45 AM CDT Lab [facility] [address] [facility] [address] [place] [address] 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); Melanoma of flank (HCC) 04/22/2025 Telephone [facility] [address] [place] [address] Office [facility] [address] [place] [address] Viky Robb Tarun 04/16/2025 Telephone [facility] [address] [place] [address] Office [facility] [address] [place] [address] Sharmaine Babin RN 04/07/2025 Orders Only [facility] [address] [place] [address] Office [facility] [address] [place] [address] Cheo Ba MD 04/07/2025 Orders Only [facility] [address] [place] [address] Office [facility] [address] [place] [address] Cheo Ba MD Melanoma of flank (HCC) (Primary Dx) 04/07/2025 Orders Only [facility] [address] [place] [address] Office [facility] [address] [place] [address] Cheo Ba MD Melanoma of flank (HCC) (Primary Dx) 04/02/2025 Telephone [facility] [address] [place] [address] Cheo Ba MD 03/31/2025 Telephone [facility] [address] [place] [address] Office [address] [place] [address] Sharmaine Babin, JENNIFER 03/27/2025 1:15 PM CDT Office Visit [facility] [address] [facility] Floor [address] [place] [address] Seema Gutierrez MD 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) 03/25/2025 1:57 PM CDT - 03/25/2025 11:59 PM CDT Hospital Encounter [facility] [address] [place] [address] 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); Melanoma of flank (HCC) Discharge Disposition: Discharge to home or self care 03/23/2025 Telephone [facility] [address] [facility] [address] [place] [phone] Erin Ng RN 03/23/2025 Telephone [facility] [address] [facility] Medical Office Bldg [address] [place] [phone] Cheryl Velasco, CLT 03/19/2025 9:20 AM CDT - 03/19/2025 11:59 PM CDT Hospital Encounter [facility] Radiology [address] [place] [phone] 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); Melanoma of flank (HCC) Discharge Disposition: Discharge to home or self care from Last 3 Months Immunizations Immunization Administration [...] HLD (hyperlipidemia) Malignant melanoma of flank (HCC) Melanoma (HCC) Family History Medical History Relation Name [...] on file 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 Gender Identity Not on file Sexual Orientation Not on file Obstetrics History Last Filed Vital Signs Vital Sign Reading Time Taken Comments Blood Pressure 120/81 06/10/2025 2:05 PM CDT Pulse 56 06/10/2025 2:05 PM CDT Temperature 36.3 C (97.3 F) 06/10/2025 2:05 PM CDT Respiratory Rate 20 06/10/2025 2:05 PM CDT Oxygen Saturation 100% 06/10/2025 2:05 PM CDT Inhaled Oxygen Concentration - - Weight 115.3 kg (254 lb 3.2 oz) 06/09/2025 3:03 PM CDT Height 175.3 cm (5' 9) 06/09/2025 3:03 PM CDT Body Mass Index 37.54 06/09/2025 3:03 PM CDT Plan of Treatment Health Maintenance Due Date Last Done Comments Colon Cancer Screening-Colonoscopy 1967 Depression Screening 1967 Hepatitis C Screening 1967 Prostate Cancer Screening-PSA 1967 Hepatitis B Screening 1985 Regular Well Visit/Exam 18-64 1985 Pneumococcal vaccine <65 (1 of 2 - PCV) 1986 Covid-19 Vaccine (7 - Pfizer risk season) 2025 07/23/2024, 08/12/2022, 05/20/2022, Additional history exists Influenza Vaccine (#1) 2025 4, 07/19/2024, 07/07/2023, Additional history exists DTaP/Tdap/Td Vaccine (3 - Td or Tdap) 01/12/2035 01/12/2025, 10/09/2006 Zoster Vaccine Completed 10/18/2022, 07/20/2022 Procedures Procedure Name Priority Date/Time Associated Diagnosis Comments EGFR Routine 06/05/2025 2:17 PM CDT 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) Melanoma of flank (HCC) DIFFERENTIAL AUTO Routine 06/05/2025 2:1 7 PM CDT 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) Melanoma of flank (HCC) CBC WITH AUTO DIFFERENTIAL Routine 06/05/2025 2:17 PM CDT 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) Melanoma of flank (HCC) COMPREHENSIVE METABOLIC PANEL Routine 06/05/2025 2:17 PM CDT 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) Melanoma of flank (HCC) TSH Routine 06/05/2025 2:17 PM CDT 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) Melanoma of flank (HCC) TEMPUS XF Routine 04/23/2025 1:04 PM CDT 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) Melanoma of flank (HCC) EGFR STAT 04/23/2025 11:20 AM CDT Melanoma of flank (HCC) DIFFERENTIAL AUTO Routine 04/23/2025 11: 20 AM CDT Melanoma of flank (HCC) CBC WITH AUTO DIFFERENTIAL Routine 04/23/2025 11:20 AM CDT Melanoma of flank (HCC) COMPREHENSIVE METABOLIC PANEL STAT 04/23/2025 11:20 AM CDT Melanoma of flank (HCC) THYROID FUNCTION CASCADE Routine 04/23/2025 11:20 AM CDT Melanoma of flank (HCC) MRI BRAIN W WO CONTRAST Schedule BEATRIZ, Read BEATRIZ (Appt Today, Awaiting Results) 03/25/2025 2:49 PM CDT 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) Melanoma of flank (HCC) PET/CT FDG SKULL TO THIGH Schedule BEATRIZ, Read BEATRIZ (Appt Today, Awaiting Results) 03/19/2025 11:02 AM CDT 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) Melanoma of flank (HCC) from Last 3 Months Results * eGFR (06/05/2025 2:17 PM CDT) eGFR 86 >=60 mL/min/1. 73 m2 Comment: Interpretive Data [...] Current interpretive data was last reviewed 2021. Blood 06/05/2025 2:17 PM CDT 06/05/2025 5:49 PM CDT us Cheo Ba MD LAB BLOOD ORDERABLES Melissa parra Result ROBERTA [address] Department [place] [address] * (ABNORMAL) Differential, auto (06/05/2025 2:17 PM CDT) Neutrophil abs 4.14 1.50 - 6.50 K/cumm Imm gran abs 0.01 0.00 - 0.10 K/cumm [facility] Lymphocyte abs 1.68 0.80 - 3.30 K/cumm [facility] Monocyte abs 0.88(H) 0.20 - 0.80 K/cumm [facility] Eosinophil abs 0.18 0.00 - 0.50 K/cumm [facility] Basophil abs 0.02 0.00 - 0.10 K/cumm [facility] Neutrophil pct 60.0 % [facility] Comment: Interpretive Data Percent cell count reference ranges are not reported, since discordance with absolute values may lead to misinterpretation of CBC data. Current Interpretive Data was last revised on 2018. Imm gran pct 0.1 % [facility] Comment: Interpretive Data Percent cell count reference ranges are not reported, since discordance with absolute values may lead to misinterpretation of CBC data. Current Interpretive Data was last revised on 2018. Lymphocyte pct 24.3 % [facility] Comment: Interpretive Data Percent cell count reference ranges are not reported, since discordance with absolute values may lead to misinterpretation of CBC data. Current Interpretive Data was last revised on 2018. Monocyte pct 12.7 % [facility] Comment: Interpretive Data Percent cell count reference ranges are not reported, since discordance with absolute values may lead to misinterpretation of CBC data. Current Interpretive Data was last revised on 2018. Eosinophil pct 2.6 % [facility] Comment: Interpretive Data Percent cell count reference ranges are not reported, since discordance with absolute values may lead to misinterpretation of CBC data. Current Interpretive Data was last revised on 2018. Basophil pct 0.3 % [facility] Comment: Interpretive Data Percent cell count reference ranges are not reported, since discordance with absolute values may lead to misinterpretation of CBC data. Current Interpretive Data was last revised on 2018. Blood 06/05/2025 2:17 PM CDT 06/05/2025 5:49 PM CDT us Cheo Ba MD LAB BLOOD ORDERABLES Melissa parra Result [address] [address] * CBC with auto differential (06/05/2025 2:17 PM CDT) [facility] WBC 6.91 3.80 - 9.90 K/cumm Hgb 14.9 13.0 - 17.5 g/dL [facility] Hct 45.2 38.9 - 50.3 % [facility] Plt 234 150 - 400 K/cumm [facility] MPV 10.9 9.1 - 12.3 fL [facility] RBC 4.92 4.30 - 5.80 M/cumm [facility] MCV 91.9 81.3 - 96.4 fL [facility] MCH 30.3 27.1 - 33.3 pg [facility] MCHC 33.0 32.3 - 35.7 g/dL [facility] RDW CV 13.1 11.1 - 14.9 % [facility] RDW SD 43.8 35.7 - 48.1 fL [facility] NRBC abs 0.00 0.00 - 0.01 K/cumm [facility] Blood 06/05/2025 2:17 PM CDT 06/05/2025 5:49 PM CDT us Cheo Ba MD LAB BLOOD ORDERABLES Melissa l Result Performing Organization Address [facility] de Phone Number [address] [address] * TSH (06/05/2025 2:17 PM CDT) [facility] Thyroid Stimulating Hormone 1.54 0.30 - 4.20 mcIUnit/mL Blood 06/05/2025 2:17 PM CDT 06/05/2025 5:49 PM CDT us Cheo Ba MD LAB BLOOD ORDERABLES Melissa l Result Performing Organization Address [facility] Co de Phone Number [address] [place] [address] * Comprehensive metabolic panel (06/05/2025 2:17 PM CDT) Sodium 141 135 - 145 mmol/L Potassium, pl 3.8 3.3 - 4.9 mmol/L [facility] Chloride 103 97 - 110 mmol/L [facility] CO2 27 22 - 32 mmol/L [facility] Anion gap 11 2 - 15 mmol/L [facility] BUN 21 6 - 25 mg/dL [facility] Creatinine 1.02 0.80 - 1.30 mg/dL [facility] Glucose 118 70 - 199 mg/dL [facility] Comment: Interpretive Data Fasting glucose >/= 126 [...] Current interpretive data was last revised 2022. Calcium 9.3 8.5 - 10.3 mg/dL [facility] Bilirubin, total 0.9 0.1 - 1.2 mg/dL [facility] Protein, pl 7.3 6.5 - 8.5 g/dL [facility] Albumin 4.2 3.5 - 5.0 g/dL [facility] Alk phos 68 40 - 130 Units/L [facility] ALT 21 7 - 55 Units/L [facility] AST 23 10 - 50 Units/L [facility] Blood 06/05/2025 2:17 PM CDT 06/05/2025 5:49 PM CDT us Cheo Ba MD LAB BLOOD ORDERABLES Melissa l Result ROBERTA [address] [place] [address] * Tempus xF - Add On (sample [...] AM CDT [facility]us Portal [email or web address] 04/30/2025 10:40 AM CDT [facility] Comment:[facility] Portal link Low Coverage Regions ERRFI1, JAK1, KMT2A, MSH3, SPOP, TERT, TSC2 04/30/2025 10:40 AM CDT [facility] Tumor Mutational Atalissa 0.0 m/MB 04/30/2025 10:40 AM CDT [facility] [...] GENETIC TESTING Final Result [facility] [address] [facility], [address] [place], [place] [address] [phone] [facility] [address] [facility], [address] [place] [address] * eGFR (04/23/2025 11:20 AM CDT) eGFR [...] was last reviewed 2021. Testing performed by: [facility], [address], [place], [address] Blood 04/23/2025 11:2 0 AM CDT 04/23/2025 11:42 AM CDT us Cheo Ba MD LAB BLOOD ORDERABLES Melissa l Result ROBERTA [place] [address] [facility] Department [place] [address] * Differential, auto (04/23/2025 11:20 AM CDT) Neutrophil abs 3.97 1.50 - 6.50 K/cumm ROBERTA [place] Comment:Testing performed by : [facility] [address], Medical Office [address], [place] [address] Imm gran abs 0.01 0.00 - 0.10 K/cumm ROBERTA [place] ([place] Comment:Testing performed by : [facility] [address], Medical Office [address], [place] [address] Lymphocyte abs 1.53 0.80 - 3.30 K/cumm [facility] Comment:Testing performed by : [facility] [address], Medical Office [facility] [address] [facility] [address], [place] [address] Monocyte abs 0.56 0.20 - 0.80 K/cumm [facility] Comment:Testing performed by : [facility] [address], Medical Office [facility] [address], [place] [address] Eosinophil abs 0.11 0.00 - 0.50 K/cumm [facility]) Comment:Testing performed by : [facility] [address], Medical Office [facility] [address], [place] [address] Basophil abs 0.02 0.00 - 0.10 K/cumm [facility] Comment:Testing performed by : [facility] [address], Medical Office [facility] [address], [place] [address] Neutrophil pct 64.0 % [facility] ([place]) Comment: Interpretive Data Percent cell count reference ranges are not reported, since discordance with absolute values may lead to misinterpretation of CBC data. Current Interpretive Data was last revised on 2022. Testing performed by: [facility] [address], Medical Office [facility] [address], [place] [address] Imm gran pct 0.2 % [facility] Comment: Interpretive Data Percent cell count reference ranges are not reported, since discordance with absolute values may lead to misinterpretation of CBC data. Current Interpretive Data was last revised on 2022. Testing performed by: [facility] [address], Medical Office [facility] [address], [place] [address] Lymphocyte pct 24.7 % [facility] Comment: Interpretive Data Percent cell count reference ranges are not reported, since discordance with absolute values may lead to misinterpretation of CBC data. Current Interpretive Data was last revised on 2022. Testing performed by: [facility] [address], Medical Office [facility] B [facility] [address], [place] [address] Monocyte pct 9.0 % [facility] Comment: Interpretive Data Percent cell count reference ranges are not reported, since discordance with absolute values may lead to misinterpretation of CBC data. Current Interpretive Data was last revised on 2022. Testing performed by: [facility] [address], Medical Office [facility] [address], [place] [address] Eosinophil pct 1.8 % CERMARCI HU[place]ON ([place] Comment: Interpretive Data Percent cell count reference ranges are not reported, since discordance with absolute values may lead to misinterpretation of CBC data. Current Interpretive Data was last revised on 2022. Testing performed by: [facility] [address], Medical Office [facility] [address], [place] [address] Basophil pct 0.3 % ROBERTA [place] Comment: Interpretive Data Percent cell count reference ranges are not reported, since discordance with absolute values may lead to misinterpretation of CBC data. Current Interpretive Data was last revised on 2022. Testing performed by: [facility] [address], Medical Office [facility] B [facility] [address], [place] [address] Blood 04/23/2025 11:2 0 AM CDT 04/23/2025 11:33 AM CDT us Cheo Ba MD LAB BLOOD ORDERABLES Melissa l Result ROBERTA [place] [address] [facility] Department [place] [address] * Thyroid Function [place] (04/23/2025 11:20 AM CDT) TSH 0.55 0.30 - 4.20 mcIUnit/mL Comment:Testing performed by : [facility], [address] [facility], [place], [address] Blood 04/23/2025 11:2 0 AM CDT 04/23/2025 11:42 AM CDT us Cheo Ba MD LAB BLOOD ORDERABLES Melissa l Result [facility]) [address] [facility] [place] [address] * CBC with auto differential (04/23/2025 11:20 AM CDT) WBC 6.20 3.80 - 9.90 K/cumm [facility] ([place]) Comment:Testing performed by : [facility] [address], Medical Office [address], [place] [address] Hgb 14.8 13.0 - 17.5 g/dL [facility] ([place]) Comment:Testing performed by : [facility] [address], Medical Office [facility] [address], [place] [address] Hct 44.1 38.9 - 50.3 % [facility] ([place]) Comment:Testing performed by : [facility] [address], Medical Office [facility] [address], [place] [address] Plt 194 150 - 400 K/cumm [facility] ([place]) Comment:Testing performed by : [facility] [address], Medical Office [facility] [address], [place] [address] MPV 10.1 9.1 - 12.3 fL [facility] Comment:Testing performed by : [facility] [address], Medical Office [facility] [address], [place] [address] RBC 4.89 4.30 - 5.80 M/cumm [facility]) Comment:Testing performed by : [facility] [address], Medical Office [facility] [address], [place] [address] MCV 90.2 81.3 - 96.4 fL [facility] Comment:Testing performed by : [facility] [address], Medical Office [address], [place] [address] MCH 30.3 27.1 - 33.3 pg [facility] Comment:Testing performed by : [facility] [address], Medical Office [address], [place] [address] MCHC 33.6 32.3 - 35.7 g/dL [facility] Comment:Testing performed by : [facility] [address], Medical Office [address], [place] [address] RDW CV 13.0 11.1 - 14.9 % [facility] Comment:Testing performed by : [facility] [address], Medical Office [facility] [address], [place] [address] RDW SD 44.2 35.7 - 48.1 fL [facility] Comment:Testing performed by : [facility] [address], Medical Office [facility] [address], [place] [address] Blood 04/23/2025 11:2 0 AM CDT 04/23/2025 11:33 AM CDT Cheo Ba MD LAB BLOOD ORDERABLES Melissa parra Result [facility] ([place] [address] [facility] Department [place] [address] * Comprehensive metabolic panel (04/23/2025 11:20 AM CDT) Sodium 139 135 - 145 mmol/L Comment:Testing performed by : [place], [address] Potassium, pl 3.6 3.3 - 4.9 mmol/L [facility] ([place] Comment:Testing performed by : [facility], [place], [address] Chloride 101 97 - 110 mmol/L [facility] ([place]) Comment:Testing performed by : [place], [address] CO2 25 22 - 32 mmol/L [facility] ([place]) Comment:Testing performed by : [facility], [place], [address] Anion gap 14 2 - 15 mmol/L [facility] ([place]) Comment:Testing performed by : [facility], [place], [address] BUN 18 6 - 25 mg/dL [facility]) Comment:Testing performed by : [facility], [place], [address] Creatinine 0.99 0.80 - 1.30 mg/dL [facility]) Comment:Testing performed by : [facility], [place], [address] Glucose 104 70 - 199 mg/dL [facility] ([place]) Comment: Interpretive Data Fasting glucose >/= 126 [...] classification and Diagnosis of Diabetes Diabetes Care 2021; 46: S19-S40. Current interpretive data was last revised 2022. Testing performed by: [facility], [place], [address] Calcium 9.2 8.5 - 10.3 mg/dL [facility] ([place]) Comment:Testing performed by : [place], [address] Bilirubin, total 1.0 0.1 - 1.2 mg/dL [facility] ([place]) Comment:Testing performed by : [facility], [place], [address] Protein, pl 7.0 6.5 - 8.5 g/dL [facility] ([place]) Comment:Testing performed by : [facility], [place], [address] Albumin 4.3 3.5 - 5.0 g/dL [facility] Comment:Testing performed by : [facility], [place], [address] Alk phos 65 40 - 130 Units/L [facility]) Comment:Testing performed by : [facility], [place], [address] ALT 27 7 - 55 Units/L [facility] ([place]) Comment:Testing performed by : [facility], [place], [address] AST 22 10 - 50 Units/L [facility] ([place]) Comment:Testing performed by : [facility], [place], [address] Blood 04/23/2025 11:2 0 AM CDT 04/23/2025 11:42 AM CDT us Cheo Ba MD LAB BLOOD ORDERABLES Melissa parra Result [facility]ERTA [place] [address] [facility] Department [place] [address] * MRI Brain W WO Contrast (03/25/2025 [...] Aleksandar Doe M.D. MZ: ELIJAH Report ID: [id number] Reading Location: [id number] Procedure Note Aleksandar Doe MD - 03/25/2025 [...] Aleksandar Doe M.D. MZ: ELIJAH Report ID: [id number] Reading Location: [id number] Cheo Ba MD [facility] MRI PROCEDURES Final Result * PET/CT FDG [...] FDG-PET/CT IMAGING DATE OF STUDY: 03/19/2025 SCANNER: [place] RADIOPHARMACEUTICAL: 16.57 mCi F-18 Fluorodeoxyglucose (FDG) i.v. [...] obtained. The study was interpreted on the [facility] workstation. The mean liver SUV (reported for quality associate purposes) is 2.7. The total scanned area [...] wall. Simple renal cysts. Prostatomegaly. Procedure Note Cooper Gonzalesdeyanirapablo Chisholm DO - 03/19/2025 EXAMINATION: TUMOR FDG-PET/CT IMAGING DATE OF STUDY: 03/19/2025 SCANNER: [place] RADIOPHARMACEUTICAL: 16.57 mCi F-18 Fluorodeoxyglucose (FDG) i.v. [...] obtained. The study was interpreted on the [facility] workstation. The mean liver SUV (reported for quality associate purposes) is 2.7. The total scanned area [...] Ba MD IMG PET PROCEDURES Final Result from Last 3 Months [facility] [employer]ANCE Care Teams Employment Office Clerk Relationship Specialty Start Date End Date Carin Mcgee, PHOTO MANAGER [address] [place] [address] PCP - General Family Medicine 02/18/25 Katie Newell MD [address] [place] [address] Referring Physician Dermatology 02/05/25
--- OUTSIDE RECORDS SUMMARY | 2025-06-19 23:30 | XMS_ITS | Clinical Summary ---
Author Organization [facility] Address [address] [place] [address] Care Team Providers Care Floor Mechanic Name Role Phone Belkis Denny MD Primary Care Provider + Source Comments [facility],non-owned Affiliates and Associated Physician Practices is amultiple site organization consisting of ambulatory clinics and hospital sitesin [place], [place], [place] and [place]. This disclosure is being madepursuant to the Care Everywhere program and may not contain all information available regarding this patient. 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
--- OUTSIDE RECORDS SUMMARY | 2025-06-19 23:30 | XMS_ITS ---
Author Organization [facility] Medical Office Building [address] Address [address] [place] [address] Care Team Providers Care Merchandise Presentation Manager Name Role Phone Katie Newell MD Unavailable [phone] Carin Mcgee CLARIFIER Primary Care Provider [phone] Active Problems Problem Noted Date Diagnosed Date [...] Medications Current Day (Day 1 , Cycle 3 - Planned for 07/22/2025) Next Day (Day 1, Cycle 4 - Planned for 09/02/2025) pembrolizumab (KEYTRUDA)pembrolizumab (KEYTRUDA) IVPB in 100 mL pembrolizumab (KEYTRUDA) 400 mg in sodium chloride 0.9% 100 mL IVPB pembrolizumab (KEYTRUDA) 400 mg in sodium chloride 0.9% 100 mL IVPB Past Treatment and Therapy Plans No past plan information found.
[2025-06-19 23:42] VITALS: BP 144/91; PULSE 69; RESP 14; O2SAT 96
[2025-06-19 23:57] VITALS: BP 144/91; PULSE 80; RESP 16; TEMP 36.8; O2SAT 98
--- NOTE | 2025-06-20 00:07 | ED.GENADULT ---
HPI - General Adult General Chief complaint: Unspecified <Jyoti Malik APRN - Last Filed: 06/20/25 03:01> Stated complaint: increased thirst and frequent urination <Jyoti Malik APRN - Last Filed: 06/20/25 03:01> Time Seen by Provider: 06/19/25 23:35 <Jyoti Malik APRN - Last Filed: 06/20/25 03:01> History of Present Illness HPI narrative: Patient is a 59-year-old male who presents to the ER with concerns increased thirst and increased urine output. He reports has completed 2 cycles of chemotherapy for melanoma. Patient reports his symptoms started approximately 3 days ago. He spoke with his oncologist who advised him to come into the ER for further evaluation. Patient denies any history of diabetes. He endorses a history of melanoma, thyroid cancer, and high blood pressure. Patient denies any back pain, abdominal pain, urinary symptoms, recent fevers, or oral intake change. <Jyoti Malik APRN - Last Filed: 06/20/25 03:01> Related Data Home medications: Home Medications ?Medication ?Instructions ?Recorded ?Confirmed ?Last Taken ?Type cholecalciferol (vitamin D3) 1,250 1,250 mcg PO MONTHLY 11/24/24 05/04/25 05/03/25 History mcg (50,000 unit) capsule <Jyoti Malik APRN - Last Filed: 06/20/25 03:01> Allergies/adverse reactions: Allergies Allergy/AdvReac Type Severity Reaction Status Date / Time No Known Allergies Allergy Verified 06/19/25 23:59 <Jyoti Malik APRN - Last Filed: 06/20/25 03:01> Review of Systems Review of Systems: All systems reviewed & are unremarkable except as noted in HPI and below <Jyoti Malik APRN - Last Filed: 06/20/25 03:01> [facility] Past Medical History Medical History: Medical History Encounter for administration of vaccine Mixed hyperlipidemia Thyroid cancer AC (generalized anxiety disorder) Benign essential HTN <Jyoti Malik APRN - Last Filed: 06/20/25 03:01> Surgical History Surgical History: Surgical History H/O: vasectomy Hx of colonoscopy 2018- repeat in 5 years S/P thyroidectomy <Jyoti Malik APRN - Last Filed: 06/20/25 03:01> Family History Family History: Family History Mother Patient's mother is in good health Asthma Father Patient's father is in good health Sibling Patient's sister is in good health <Jyoti Malik APRN - Last Filed: 06/20/25 03:01> Social History Social History: Social History Social History: Smoking packs per day: 0.5 Smoking cigarettes per day: 10.0 Years smoked: 14 Smoking pack-years: 7.00 Smoking status: Former smoker Tobacco type: cigarettes Second hand tobacco smoke exposure: No Smoking end date: 10/15/94 Alcohol intake: current Drinks per week: 2 Substance use: never Substance use type: does not use Do You Feel Safe in your Home?: Yes Lack of Transportation: No Lack of Food: Never True Current Housing: I Have Housing Concerned About Future Housing: No Difficulty Paying Gas/Electric Bills: No Difficulty Paying for Meds: No Currently Unemployed: No Education: High School Diploma/GED Difficulty w/ Childcare or Family Care: No Living arrangements: with family Occupation/Education: occupation Gender identity (if verbalized by the patient): Male Sexual Orientation (if Verbalized by the Patient): Straight or Heterosexual Spiritual care concerns: No <Jyoti Malik APRN - Last Filed: 06/20/25 03:01> Exam Narrative: GENERAL: Well appearing, well-nourished, non-toxic, in no acute distress. HEAD: Normocephalic, atraumatic. NECK: Supple. No adenopathy, no masses. RESPIRATORY: Airway patent, respirations nonlabored. Clear to auscultation bilaterally, no rales, rhonchi, wheezing. CARDIOVASCULAR: Regular rate and rhythm without murmurs, rubs, or gallops. Peripheral pulses 2+ and equal bilaterally. ABDOMINAL: Soft, nontender, nondistended, no hepatosplenomegaly. Normoactive BS. MUSCULOSKELETAL: Moves all extremities. Strength/ROM intact without gross deformities. SKIN: Warm, dry, normal color. No rashes. NEURO: A&O X3. Speech clear. Cranial nerves II-XII intact. No ataxic movements. PSYCHIATRIC: Appropriate mood and affect. Normal interaction. <Jyoti Malik APRN - Last Filed: 06/20/25 03:01> Course [employer]ESSION[employer]/PA Physician Supervision This visit was performed by both a physician and an APC. For this patient encounter, I reviewed the [employer] PROFESSIONALS or PA documentation, treatment plan, and medical decision making and had [id number] time with this patient. I performed all aspects of the MDM as documented. <Jorge Esqueda MD - Last Filed: 06/20/25 03:29> Vital Signs Vital signs: Vital Signs Pulse Rate 69 06/19/25 23:42 Respiratory Rate 06/19/25 23:42 Blood Pressure 144/91 H 06/19/25 23:42 Pulse Oximetry 96 06/19/25 23:42 Oxygen Delivery Room Air 06/19/25 23:42 Temperature 98.3 F 06/19/25 23:57 Pulse Rate 82 06/20/25 02:30 Respiratory Rate 14 06/20/25 02:30 Blood Pressure 127/84 06/20/25 01:07 Pulse Oximetry 96 06/20/25 02:30 Oxygen Delivery Room Air 06/19/25 23:42 <Jyoti Malik APRN - Last Filed: 06/20/25 03:01> Vital Signs Pulse Rate 69 06/19/25 23:42 Respiratory Rate 14 06/19/25 23:42 Blood Pressure 144/91 H 06/19/25 23:42 Pulse Oximetry 96 06/19/25 23:42 Oxygen Delivery Room Air 06/19/25 23:42 Temperature 98.3 F 06/19/25 23:57 Pulse Rate 82 06/20/25 02:30 Respiratory Rate 14 06/20/25 02:30 Blood Pressure 127/84 06/20/25 01:07 Pulse Oximetry 96 06/20/25 02:30 Oxygen Delivery Room Air 06/19/25 23:42 <Jorge Esqueda MD - Last Filed: 06/20/25 03:29> Medical Decision Making MDM Narrative Medical decision making narrative: Patient is a 59-year-old male who presents to the ER with concerns increased thirst and increased urine output. He reports has completed 2 cycles of chemotherapy for melanoma. Patient reports his symptoms started approximately 3 days ago. He spoke with his oncologist who advised him to come into the ER for further evaluation. Patient denies any history of diabetes. He endorses a history of melanoma, thyroid cancer, and high blood pressure. Patient denies any back pain, abdominal pain, urinary symptoms, recent fevers, or oral intake change. Labs Ordered: CBC, CMP, beta hydroxybutyrate, hemoglobin A1c, TSH, lipase, VBG Imaging Ordered: None necessary Medications Ordered: 3.6 L normal saline IV bolus Results: Patient's CBC indicates no acute abnormalities. His chemistry indicates a sodium of 132, chloride of 97, BUN of 23, glucose of 603. Patient's hemoglobin A1c was 6.7. His TSH was within normal limits. Patient's lipase was within normal limits. His beta hydroxybutyrate was 0.88. Patient's urinalysis indicates a specific gravity of 1.040, glucose of 3+, ketones of 1+. Diagnosis: Hyperglycemia, side effects due to medication administration CRITICAL CARE ADDENDUM: Indication: Hyperglycemia Time type: intermittent I provided a total of 55 minutes of critical care excluding separately billable procedures. This includes time w/ EMS, initial bedside evaluation, reviewing old records, review of testing done while under my care, discussion w/ the family, nurses, managing consultant clinical professor and guiding the patient?s care while in the emergency department. Approximate time distribution: 15 minutes ? Initial evaluation, d/w involved parties, attempting to gather old records. 10 minutes ? Documenting medical record 10 minutes ? Review of results (EKGs, labs, imaging) 10 minutes ? Serial repeat bedside evaluation 10 minutes ? Discussing case with multiple providers Please see main chart for details. Excludes separately billable procedures. Patient Education/Shared MDM: Results of lab work shared with patient and his . 0300- Care signed out to Dr. Esqueda pending BMP results. <Jyoti Malik APRN - Last Filed: 06/20/25 03:01> Patient is a 59-year-old male who presents to the ER with concerns increased thirst and increased urine output. He reports has completed 2 cycles of chemotherapy for melanoma. Patient reports his symptoms started approximately 3 days ago. He spoke with his oncologist who advised him to come into the ER for further evaluation. Patient denies any history of diabetes. He endorses a history of melanoma, thyroid cancer, and high blood pressure. Patient denies any back pain, abdominal pain, urinary symptoms, recent fevers, or oral intake change. Labs Ordered: CBC, CMP, beta hydroxybutyrate, hemoglobin A1c, TSH, lipase, VBG Imaging Ordered: None necessary Medications Ordered: 3.6 L normal saline IV bolus Results: Patient's CBC indicates no acute abnormalities. His chemistry indicates a sodium of 132, chloride of 97, BUN of 23, glucose of 603. Patient's hemoglobin A1c was 6.7. His TSH was within normal limits. Patient's lipase was within normal limits. His beta hydroxybutyrate was 0.88. Patient's urinalysis indicates a specific gravity of 1.040, glucose of 3+, ketones of 1+. Diagnosis: Hyperglycemia, side effects due to medication administration CRITICAL CARE ADDENDUM: Indication: Hyperglycemia Time type: intermittent I provided a total of 55 minutes of critical care excluding separately billable procedures. This includes time w/ EMS, initial bedside evaluation, reviewing old records, review of testing done while under my care, discussion w/ the family, nurses, managing consultant clinical professor and guiding the patient?s care while in the emergency department. Approximate time distribution: 15 minutes ? Initial evaluation, d/w involved parties, attempting to gather old records. 10 minutes ? Documenting medical record 10 minutes ? Review of results (EKGs, labs, imaging) 10 minutes ? Serial repeat bedside evaluation 10 minutes ? Discussing case with multiple providers Please see main chart for details. Excludes separately billable procedures. Patient Education/Shared MDM: Results of lab work shared with patient and his . 0300 - Care signed out to Dr. Esqueda pending BMP results. Yin: Patient was signed out to me pending repeat blood work and reassessment. Repeat blood work was obtained revealing glucose of 450 which has significantly improved from 06/03 after IV fluids. Patient was informed of these findings at bedside. Informed that in the meantime he needs to watch his diet limiting his carbs and sugar intake. Patient did inform me at this time the yesterday it was his son's birthday and he did eat a lot of sweets which is unusual for him. He was informed that he will need to follow-up with his oncologist as he may need to be placed on medication to control his sugars while he is being treated for his melanoma and patient is in agreement. Instructed to follow-up with the oncologist within the next 3-5 days and return to the ED if any new or worsening symptoms develop. He was discharged home in stable condition <Jorge Esqueda MD - Last Filed: 06/20/25 03:29> Differential Diagnosis Differential Diagnosis: Pancreatitis, hyperglycemia, dehydration, DKA <Jyoti Malik APRN - Last Filed: 06/20/25 03:01> Vital Signs Vital Signs: Vital Signs Pulse Rate 69 06/19/25 23:42 Respiratory Rate 14 06/19/25 23:42 Blood Pressure 144/91 H 06/19/25 23:42 Pulse Oximetry 96 06/19/25 23:42 Oxygen Delivery Room Air 06/19/25 23:42 Temperature 98.3 F 06/19/25 23:57 Pulse Rate 82 06/20/25 02:30 Respiratory Rate 14 06/20/25 02:30 Blood Pressure 127/84 06/20/25 01:07 Pulse Oximetry 96 06/20/25 02:30 Oxygen Delivery Room Air 06/19/25 23:42 <Jyoti Malik, ENROLLMENT SPECIALIST - Last Filed: 06/20/25 03:01> Vital Signs Pulse Rate 69 06/19/25 23:42 Respiratory Rate 14 06/19/25 23:42 Blood Pressure 144/91 H 06/19/25 23:42 Pulse Oximetry 96 06/19/25 23:42 Oxygen Delivery Room Air 06/19/25 23:42 Temperature 98.3 F 06/19/25 23:57 Pulse Rate 82 06/20/25 02:30 Respiratory Rate 14 06/20/25 02:30 Blood Pressure 127/84 06/20/25 01:07 Pulse Oximetry 96 06/20/25 02:30 Oxygen Delivery Room Air 06/19/25 23:42 <Jorge Esqueda MD - Last Filed: 06/20/25 03:29> Lab Data Lab results reviewed: Yes I reviewed the patient's lab results. <Jyoti Malik, ENROLLMENT SPECIALIST - Last Filed: 06/20/25 03:01> Result diagrams: 06/20/25 00:15 06/20/25 02:55 <Jyoti Malik APRN - Last Filed: 06/20/25 03:01> Labs: Lab Results 06/20/25 06/20/25 06/20/25 Range/Units 00:15 00:20 02:55 WBC 6.6 (4.5-10.0) K/mm3 RBC 5.19 (4.6-6.20) M/mm3 Hgb 15.4 (14.0-18.0) g/dL Hct 45.1 (42.0-52.0) % MCV 86.9 (80-100) fl MCH 29.7 (26-34) pg MCHC 34.1 (32-36) g/dl RDW 12.3 (11.5-14.5) % Plt Count 203 (150-375) k/mm3 MPV 10.6 H (7.4-10.4) fl Immature Gran % (Auto) 0.2 (0-0.5) % Neut % (Auto) 65.9 (45.5-73.1) % Lymph % (Auto) 21.7 (18.3-44.2) % Thomas % (Auto) 9.2 H (2.6-8.5) % Eos % (Auto) 2.7 (0-4.4) % Baso % (Auto) 0.3 (0.2-1.2) % Lymph # (Auto) 1.42 (0.9-3.2) K/mm3 Thomas # (Auto) 0.6 (0.1-0.6) K/mm3 Eos # (Auto) 0.2 (0-0.3) K/mm3 Baso # (Auto) 0.0 (0.0-0.1) K/mm3 Abs Immat Gran (auto) 0.01 (0.00-0.031) K/mm3 Absolute Neuts (auto) 4.3 (1.3-6.7) K/mm3 Absolute Nucleated RBC 0.000 (0.0-0.012) K/mm3 Nucleated RBC % 0.0 (0.0-0.2) % Sodium 132 L 134 L (137-145) mmol/L Potassium 4.2 3.8 (3.4-5.0) mmol/L Chloride 97 L 104 (98-107) mmol/L Carbon Dioxide 23 23 (22-30) mmol/L Anion Gap 12 7 (4-12) mmol/L BUN 23 H 21 H (9-20) mg/dL Creatinine 0.87 0.80 (0.7-1.3) mg/dL Estim Creat Clear Calc 101 109 ml/min Estimated GFR > 60 > 60 (59 - ) Glucose 603 H* 450 H (65-110) mg/dL Hemoglobin A1c 6.7 H (<5.7) % Calcium 8.9 7.8 L (8.4-10.2) mg/dL Total Bilirubin 1.1 (0.2-1.3) mg/dL AST 30 (17-59) U/L ALT 34 (6-50) U/L Alkaline Phosphatase 114 (38-126) U/L Total Protein 7.7 (6.3-8.2) g/dL Albumin 4.4 (3.5-5.1) g/dL Lipase 153 (23-300) U/L Beta-Hydroxybutyrate/Acetoacetate 0.88 H (0.02-0.27) mmol/L TSH (Reflex) 3.570 (0.465-4.68) uIU/mL Urine Color Yellow (Yellow) Urine Appearance Clear (Clear) Urine pH 5.0 (5.0-9.0) Ur Specific [place] 1.040 H (1.001-1.035) Urine Protein Negative (Negative) mg/dL Urine Glucose (UA) 3+ H (Negative) mg/dL Urine Ketones 1+ H (Negative) mg/dL Ur Blood (Man) Negative (Negative) Urine Nitrate Negative (Negative) Urine Bilirubin Negative (Negative) Urine Urobilinogen 0.2 (<2.0) mg/dL Leukocyte Esterase Rfl Negative (Negative) LASHAY/UL <Jyoti Malik, ENROLLMENT SPECIALIST - Last Filed: 06/20/25 03:01> Lab Results 06/20/25 06/20/25 06/20/25 Range/Units 00:15 00:20 02:55 WBC 6.6 (4.5-10.0) K/mm3 RBC 5.19 (4.6-6.20) M/mm3 Hgb 15.4 (14.0-18.0) g/dL Hct 45.1 (42.0-52.0) % MCV 86.9 (80-100) fl MCH 29.7 (26-34) pg MCHC 34.1 (32-36) g/dl RDW 12.3 (11.5-14.5) % Plt Count 203 (150-375) k/mm3 MPV 10.6 H (7.4-10.4) fl Immature Gran % (Auto) 0.2 (0-0.5) % Neut % (Auto) 65.9 (45.5-73.1) % Lymph % (Auto) 21.7 (18.3-44.2) % Thomas % (Auto) 9.2 H (2.6-8.5) % Eos % (Auto) 2.7 (0-4.4) % Baso % (Auto) 0.3 (0.2-1.2) % Lymph # (Auto) 1.42 (0.9-3.2) K/mm3 Thomas # (Auto) 0.6 (0.1-0.6) K/mm3 Eos # (Auto) 0.2 (0-0.3) K/mm3 Baso # (Auto) 0.0 (0.0-0.1) K/mm3 Abs Immat Gran (auto) 0.01 (0.00-0.031) K/mm3 Absolute Neuts (auto) 4.3 (1.3-6.7) K/mm3 Absolute Nucleated RBC 0.000 (0.0-0.012) K/mm3 Nucleated RBC % 0.0 (0.0-0.2) % Sodium 132 L 134 L (137-145) mmol/L Potassium 4.2 3.8 (3.4-5.0) mmol/L Chloride 97 L 104 (98-107) mmol/L Carbon Dioxide 23 23 (22-30) mmol/L Anion Gap 12 7 (4-12) mmol/L BUN 23 H 21 H (9-20) mg/dL Creatinine 0.87 0.80 (0.7-1.3) mg/dL Estim Creat Clear Calc 101 109 ml/min Estimated GFR > 60 > 60 (59 - ) Glucose 603 H* 450 H (65-110) mg/dL Hemoglobin A1c 6.7 H (<5.7) % Calcium 8.9 7.8 L (8.4-10.2) mg/dL Total Bilirubin 1.1 (0.2-1.3) mg/dL AST 30 (17-59) U/L ALT 34 (6-50) U/L Alkaline Phosphatase 114 (38-126) U/L Total Protein 7.7 (6.3-8.2) g/dL Albumin 4.4 (3.5-5.1) g/dL Lipase 153 (23-300) U/L Beta-Hydroxybutyrate/Acetoacetate 0.88 H (0.02-0.27) mmol/L TSH (Reflex) 3.570 (0.465-4.68) uIU/mL Urine Color Yellow (Yellow) Urine Appearance Clear (Clear) Urine pH 5.0 (5.0-9.0) Ur Specific [place] 1.040 H (1.001-1.035) Urine Protein Negative (Negative) mg/dL Urine Glucose (UA) 3+ H (Negative) mg/dL Urine Ketones 1+ H (Negative) mg/dL Ur Blood (Man) Negative (Negative) Urine Nitrate Negative (Negative) Urine Bilirubin Negative (Negative) Urine Urobilinogen 0.2 (<2.0) mg/dL Leukocyte Esterase Rfl Negative (Negative) LASHAY/UL <Jorge Esqueda MD - Last Filed: 06/20/25 03:29> ABG Data ABG results: 06/20/25 00:55 VBG pH 7.410 H* VBG pCO2 41.3 L VBG pO2 56.1 H VBG HCO3 25.6 O2 Delivery Device Room air O2 Liters/Min 0.0 FiO2 21 <Jyoti Malik APRN - Last Filed: 06/20/25 03:01> 06/20/25 00:55 VBG pH 7.410 H* VBG pCO2 41.3 L VBG pO2 56.1 H VBG HCO3 25.6 O2 Delivery Device Room air O2 Liters/Min 0.0 FiO2 21 <Jorge Esqueda MD - Last Filed: 06/20/25 03:29> Critical Care Time Critical Care Time Critical Care Time: Yes <Jyoti Malik APRN - Last Filed: 06/20/25 03:01> Total Critical Care Time: 55 <Jyoti Malik APRN - Last Filed: 06/20/25 03:01> 55 (Please refer to [facility] for attestation.) <Jorge Esqueda MD - Last Filed: 06/20/25 03:29> Discharge Plan Discharge Clinical Impression: Acute hyperglycemia <Jyoti Malik APRN - Last Filed: 06/20/25 03:01> Patient Disposition: Home <Jyoti Malik APRN - Last Filed: 06/20/25 03:01> Condition: Improved <Jyoti Malik APRN - Last Filed: 06/20/25 03:01> Instructions: Antibiotic Form, Nondiabetic Hyperglycemia (ED) <Jyoti Malik APRN - Last Filed: 06/20/25 03:01> Additional Instructions: Please follow-up with your family doctor/oncologist within the next 3-5 days. Return emergency department any new or worsening symptoms develop. <Jyoti Malik APRN - Last Filed: 06/20/25 03:01> Patient Language: Romanian <Jyoti Malik APRN - Last Filed: 06/20/25 03:01> Prescriptions: No Action cholecalciferol (vitamin D3) 1,250 mcg (50,000 unit) capsule 1,250 mcg PO MONTHLY hydrocortisone acetate [Anusol-HC] 25 mg suppository 25 mg RECTAL BID Qty: 12 0RF hydrocortisone acetate [Anusol-HC] 25 mg suppository 25 mg RECTAL BID Qty: 12 0RF bupropion HCl 150 mg tablet extended release 24 hr See Rx Instructions .ROUTE .COMPLEX Qty: 90 1RF Dose Instruction: TAKE 1 TABLET EVERY MORNING Rx Instructions: TAKE 1 TABLET EVERY MORNING lisinopril-hydrochlorothiazide 10-12.5 mg tablet See Rx Instructions .ROUTE .COMPLEX Qty: 90 1RF Dose Instruction: TAKE 1 TABLET DAILY Rx Instructions: TAKE 1 TABLET DAILY rosuvastatin 20 mg tablet See Rx Instructions .ROUTE .COMPLEX Qty: 90 1RF Dose Instruction: TAKE 1 TABLET DAILY Rx Instructions: TAKE 1 TABLET DAILY levothyroxine [Synthroid] 175 mcg tablet See Rx Instructions .ROUTE .COMPLEX Qty: 90 3RF Dose Instruction: TAKE 1 TABLET DAILY Rx Instructions: TAKE 1 TABLET DAILY <Jyoti Malik APRN - Last Filed: 06/20/25 03:01> Follow-up/Referrals: Carin Mcgee, PRESCHOOL TEACHER'S ASSISTANT-C [Primary Care Provider, [facility]] - 3 Days <Jyoti Malik APRN - Last Filed: 06/20/25 03:01> Time of Disposition: 03:28 <Jyoti Malik APRN - Last Filed: 06/20/25 03:01> 03:28 <Jorge Esqueda MD - Last Filed: 06/20/25 03:29>
[2025-06-20 00:26] LABS: Add Urine Microscopic? NO; Appearance Urine Clear (Clear); Glucose Urine UA 3+ mg/dL (Negative); Leukocyte Esterase Ur Negative LEU/UL (Negative); Nitrate Urine Negative (Negative); Specific Grav Ur 1.040 (1.001-1.035)
[2025-06-20 00:27] LABS: Hematocrit 45.1 % (42.0-52.0); Hemoglobin 15.4 g/dL (14.0-18.0); Immature Granulocyte Percent A 0.2 % (0-0.5); Lymphocytes Absolute Auto 1.42 K/mm3 (0.9-3.2); Mean Corpuscular HGB Conc 34.1 g/dl (32-36); Mean Corpuscular Hemoglobin 29.7 pg (26-34); Mean Corpuscular Volume 86.9 fl (80-100); Nucleated Red Blood Cells Absolute Auto 0.000 K/mm3 (0.0-0.012); Nucleated Red Blood Cells Perc 0.0 % (0.0-0.2); Platelet Count Result 203 k/mm3 (150-375); Red Blood Count 5.19 M/mm3 (4.6-6.20); White Blood Count 6.6 K/mm3 (4.5-10.0)
[2025-06-20 00:36] LABS: Hemoglobin A1C 6.7 % (<5.7)
[2025-06-20 00:42] LABS: Alanine Aminotransferase 34 U/L (6-50); Albumin Level 4.4 g/dL (3.5-5.1); Alkaline Phosphatase 114 U/L (38-126); Anion Gap 12 mmol/L (4-12); Aspartate Amino Transferase 30 U/L (17-59); Bilirubin,Total 1.1 mg/dL (0.2-1.3); Blood Urea Nitrogen 23 mg/dL (9-20); Calcium 8.9 mg/dL (8.4-10.2); Carbon Dioxide 23 mmol/L (22-30); Chloride 97 mmol/L (98-107); Estimated CRCL calculation 101 ml/min; Estimated Glomerular Filt Rate > 60; Glucose 603 mg/dL (65-110); Lipase 153 U/L (23-300); Potassium 4.2 mmol/L (3.4-5.0); Sodium 132 mmol/L (137-145); Total Protein 7.7 g/dL (6.3-8.2)
[2025-06-20] MEDS: SODIUM CHLORIDE 0.9% IV 1,000 ML 999 ML IV CONT ×3 (00:55→00:56)
[2025-06-20] MEDS: SODIUM CHLORIDE 0.9% IV 400 ML 999 ML IV CONT (00:56)
[2025-06-20 01:02] LABS: Beta-Hydroxybutyrate/Acetoace. 0.88 mmol/L (0.02-0.27)
[2025-06-20 01:05] LABS: Thyroid Stimulating Hormone Reflex 3.570 uIU/mL (0.465-4.68)
[2025-06-20 01:07] VITALS: BP 127/84; PULSE 74; RESP 14; O2SAT 95
[2025-06-20 01:09] LABS: Fractional Inspired Oxygen 21 %; HCO3 VBG 25.6 mEq/l (24.0-30.0); PCO2 VBG 41.3 mmHg (42.0-48.0); PO2 VBG 56.1 mmHg (35.0-45.0)
[2025-06-20 01:10] LABS: Liters per Minute 0.0 LPM; pH VBG 7.410 (7.300-7.400)
[2025-06-20 02:30] VITALS: PULSE 82; RESP 14; O2SAT 96
[2025-06-20 03:20] LABS: Anion Gap 7 mmol/L (4-12); Blood Urea Nitrogen 21 mg/dL (9-20); Calcium 7.8 mg/dL (8.4-10.2); Carbon Dioxide 23 mmol/L (22-30); Chloride 104 mmol/L (98-107); Estimated CRCL calculation 109 ml/min; Estimated Glomerular Filt Rate > 60; Glucose 450 mg/dL (65-110); Potassium 3.8 mmol/L (3.4-5.0); Sodium 134 mmol/L (137-145)
[2025-06-20 03:56] VITALS: BP 121/78; PULSE 74; RESP 14; TEMP 36.4; O2SAT 96
== END 2025-06-20 03:41 | disposition home or self-care (01) ==
PROVIDERS: Registered Nurse; Emergency Provider Emergency Medicine; PCP Nurse Practitioner Family
DX: R73.9 Hyperglycemia, unspecified (principal); C43.9 Malignant melanoma of skin, unspecified; I10 Essential (primary) hypertension; E78.2 Mixed hyperlipidemia; E89.0 Postprocedural hypothyroidism; F41.1 Generalized anxiety disorder; Z85.850 Personal history of malignant neoplasm of thyroid; Z87.891 Personal history of nicotine dependence; Z79.60 Long term (current) use of unspecified immunomodulators and immunosuppressants; Z79.899 Other long term (current) drug therapy
CPT/HCPCS: 36415; 80048; 80053; 81003; 82010; 82803; 83036; 83690; 84443; 85025; 96360; 99283; J7030

== ENCOUNTER 2025-06-24 22:02 | Inpatient (IN) | payer OTHER, SELFPAY ==
--- NOTE | ~2025-06-24 | XR_ITS ---
Examination: XR chest 1V portable Clinical History: Fatigue Comparison: None Technique: Portable AP Findings: Heart size normal. Lungs clear. No acute bony abnormality. IMPRESSION: 1. No acute cardiopulmonary findings given portable technique. Reviewed, dictated and finalized at location R.
[2025-06-24 22:24] VITALS: BP 143/106; PULSE 97; RESP 18; O2SAT 96
--- NOTE | 2025-06-24 22:29 | ECG_ITS ---
Test Date: 2025-06-24 22:52:42 Measurements Intervals [place] Rate: 90 P: 43 RI: 158 QRS: -3 QRSD: 105 T: 14 QT: 377 QTc: 463 Interpretive Statements SINUS RHYTHM WITH FREQUENT VENTRICULAR PREMATURE COMPLEXES ABNORMAL RHYTHM ECG No previous ECG available for comparison Electronically Signed On 06-25-2025 11:05:57 CDT by Cecil Ibrahim M.D.
--- NOTE | 2025-06-24 22:39 | ED_ITS ---
HPI - General Adult General Chief complaint: Recheck/Abnormal Lab/Rx Stated complaint: high blood sugar Time Seen by Provider: 06/24/25 22:19 History of Present Illness HPI narrative: This is a 59-year-old male undergoing melanoma treatment with Keytruda presenting for increased thirst and increased urination. Patient was seen in our ED several days ago and diagnosed with new onset diabetes suspected as a side effect acute treated. He was discharged follow-up with primary care physician who referred him to an sap senior developer but unfortunately he has not been put on insulin has had no treatment for his elevated glucose. He has not redeveloped increased thirst and urination. He feels fatigued. He denies fevers chills chest pain difficulty breathing abdominal pain or urinary symptoms. Related Data Home Medications ?Medication ?Instructions ?Recorded ?Confirmed ?Last Taken ?Type cholecalciferol (vitamin D3) 1,250 1,250 mcg PO MONTHL Y 11/24/24 05/04/25 05/03/25 History mcg (50,000 unit) capsule Allergies Allergy/AdvReac Type Severity Reaction Status Date / Time No Known Allergies Allergy Verified 06/19/25 23:59 [facility] Past Medical History Medical History Encounter for administration of vaccine Mixed hyperlipidemia Thyroid cancer AC (generalized anxiety disorder) Benign essential HTN Surgical History Surgical History H/O: vasectomy Hx of colonoscopy 2018- repeat in 5 years S/P thyroidectomy Family History Family History Mother Patient's mother is in good health Asthma Father Patient's father is in good health Sibling Patient's sister is in good health Social History Social History Social History: Smoking packs per day: 0.5 Smoking cigarettes per day: 10.0 Years smoked: 14 Smoking pack-years: 7.00 Smoking status: Former smoker Tobacco type: cigarettes Second hand tobacco smoke exposure: No Smoking end date: 10/15/94 Alcohol intake: current Drinks per week: 2 Substance use: never Substance use type: does not use Do You Feel Safe in your Home?: Yes Lack of Transportation: No Lack of Food: Never True Current Housing: I Have Housing Concerned About Future Housing: No Difficulty Paying Gas/Electric Bills: No Difficulty Paying for Meds: No Currently Unemployed: No Education: High School Diploma/GED Difficulty w/ Childcare or Family Care: No Living arrangements: with family Occupation/Education: occupation Gender identity (if verbalized by the patient): Male Sexual Orientation (if Verbalized by the Patient): Straight or Heterosexual Spiritual care concerns: No Exam 2 Narrative: APPEARANCE: No apparent distress. Head: atraumatic. EYES: EOMI, NOSE: Atraumatic NECK: Trachea midline RESPIRATORY: No increased rate of breathing CTAB CARDIOVASCULAR: RRR, no peripheral edema ABDOMINAL: Non-distended soft nontender MUSCULOSKELETAl: No obvious deformities NEURO: Alert. Moving 4/4 extremities SKIN:: Warm, dry. Normal color PSYCHIATRIC: Normal affect Course Vital Signs Vital signs: Vital Signs Pulse Rate 97 06/24/25 22:24 Respiratory Rate 18 06/24/25 22:24 Blood Pressure 143/106 H 06/24/25 22:24 Pulse Oximetry 96 06/24/25 22:24 Pulse Rate 97 06/24/25 22:24 Respiratory Rate 18 06/24/25 22:24 Blood Pressure 143/106 H 06/24/25 22:24 Pulse Oximetry 96 06/24/25 22:24 Medical Decision Making MDM Narrative Medical decision making narrative: -Course: 59-year-old male presenting with symptoms of diabetes after starting Keytruda. Type 1 diabetes is a known side effect that medication. While he was seen with elevated blood sugar several days ago, today he is in giorgio DKA. Patient given 3 L bolus and started on an insulin drip. Chest x- ray without signs of pneumonia. Urine not indicative infection. Viral swabs pending. Patient will be placed in the ICU for further management. -DDX includes but is not limited to: DKA, hyperglycemia of diabetes, medication side effect Vital Signs Vital Signs: Vital Signs Pulse Rate 97 06/24/25 22:24 Respiratory Rate 18 06/24/25 22:24 Blood Pressure 143/106 H 06/24/25 22:24 Pulse Oximetry 96 06/24/25 22:24 Pulse Rate 97 06/24/25 22:24 Respiratory Rate 18 06/24/25 22:24 Blood Pressure 143/106 H 06/24/25 22:24 Pulse Oximetry 96 06/24/25 22:24 Lab Data 06/24/25 22:42 06/24/25 22:42 Labs: Lab Results 06/24/25 06/24/25 06/24/25 Range/Units 22:42 22:47 23:20 WBC 19.4 H (4.5-10.0) K/mm3 RBC 5.91 (4.6-6.20) M/mm3 Hgb 17.4 (14.0-18.0) g/dL Hct 51.9 (42.0-52.0) % MCV 87.8 (80-100) fl MCH 29.4 (26-34) pg MCHC 33.5 (32-36) g/dl RDW 12.3 (11.5-14.5) % Plt Count 313 D (150-375) k/mm3 MPV 10.6 H (7.4-10.4) fl Immature Gran % (Auto) 0.7 H (0-0.5) % Neut % (Auto) 88.0 H (45.5-73.1) % Lymph % (Auto) 5.0 L (18.3-44.2) % [place] % (Auto) 6.1 (2.6-8.5) % Eos % (Auto) 0.0 (0-4.4) % Baso % (Auto) 0.2 (0.2-1.2) % Lymph # (Auto) 0.96 (0.9-3.2) K/mm3 [place] # (Auto) 1.2 H (0.1-0.6) K/mm3 Eos # (Auto) 0.0 (0-0.3) K/mm3 Baso # (Auto) 0.0 (0.0-0.1) K/mm3 Abs Immat Gran (auto) 0.13 H (0.00-0.031) K/mm3 Absolute Neuts (auto) 17.1 H (1.3-6.7) K/mm3 Absolute Nucleated RBC 0.000 (0.0-0.012) K/mm3 Nucleated RBC % 0.0 (0.0-0.2) % Sodium 127 L (137-145) mmol/L Potassium 5.7 H (3.4-5.0) mmol/L Chloride 90 L (98-107) mmol/L Carbon Dioxide < 5 L (22-30) mmol/L Anion Gap (4-12) mmol/L BUN 35 H D (9-20) mg/dL Creatinine 1.82 H (0.7-1.3) mg/dL Estim Creat Clear Calc 49 ml/min Estimated GFR 39 L (59 - ) Glucose 693 H* (65-110) mg/dL POC Capillary Glucose > 500 H* (65-105) mg/dl Calcium 9.1 (8.4-10.2) mg/dL Total Bilirubin 1.4 H (0.2-1.3) mg/dL AST 29 (17-59) U/L ALT 35 (6-50) U/L Alkaline Phosphatase 106 (38-126) U/L Total Protein 8.7 H (6.3-8.2) g/dL Albumin 5.1 (3.5-5.1) g/dL Beta-Hydroxybutyrate/Acetoacetate 11.60 H (0.02-0.27) mmol/L Urine Color Yellow (Yellow) Urine Appearance Clear (Clear) Urine pH 5.0 (5.0-9.0) Ur Specific [place] 1.024 (1.001-1.035) Urine Protein Trace (Negative) mg/dL Urine Glucose (UA) 3+ H (Negative) mg/dL Urine Ketones 4+ H (Negative) mg/dL Ur Blood (Man) Trace (Negative) Urine Nitrate Negative (Negative) Urine Bilirubin Negative (Negative) Urine Urobilinogen 0.2 (<2.0) mg/dL Leukocyte Esterase Rfl Negative (Negative) LASHAY/UL Urine RBC 0-2 (0-2) /hpf Urine WBC 0-5 (0-3) /hpf Ur Squamous Epith Cells None seen (Few) /hpf Urine Bacteria None seen /hpf Urine Casts 3-5 Influenza A (RT-PCR) Influenza B (RT-PCR) RSV (RT-PCR) SARS-CoV-2 RNA (RT-PCR) 06/24/25 Range/Units 23:22 WBC (4.5-10.0) K/mm3 RBC (4.6-6.20) M/mm3 Hgb (14.0-18.0) g/dL Hct (42.0-52.0) % MCV (80-100) fl MCH (26-34) pg MCHC (32-36) g/dl RDW (11.5-14.5) % Plt Count (150-375) k/mm3 MPV (7.4-10.4) fl Immature Gran % (Auto) (0-0.5) % Neut % (Auto) (45.5-73.1) % Lymph % (Auto) (18.3-44.2) % [place] % (Auto) (2.6-8.5) % Eos % (Auto) (0-4.4) % Baso % (Auto) (0.2-1.2) % Lymph # (Auto) (0.9-3.2) K/mm3 [place] # (Auto) (0.1-0.6) K/mm3 Eos # (Auto) (0-0.3) K/mm3 Baso # (Auto) (0.0-0.1) K/mm3 Abs Immat Gran (auto) (0.00-0.031) K/mm3 Absolute Neuts (auto) (1.3-6.7) K/mm3 Absolute Nucleated RBC (0.0-0.012) K/mm3 Nucleated RBC % (0.0-0.2) % Sodium (137-145) mmol/L Potassium (3.4-5.0) mmol/L Chloride (98-107) mmol/L Carbon Dioxide (22-30) mmol/L Anion Gap (4-12) mmol/L BUN (9-20) mg/dL Creatinine (0.7-1.3) mg/dL Estim Creat Clear Calc ml/min Estimated GFR (59 - ) Glucose (65-110) mg/dL POC Capillary Glucose (65-105) mg/dl Calcium (8.4-10.2) mg/dL Total Bilirubin (0.2-1.3) mg/dL AST (17-59) U/L ALT (6-50) U/L Alkaline Phosphatase (38-126) U/L Total Protein (6.3-8.2) g/dL Albumin (3.5-5.1) g/dL Beta-Hydroxybutyrate/Acetoacetate (0.02-0.27) mmol/L Urine Color (Yellow) Urine Appearance (Clear) Urine pH (5.0-9.0) Ur Specific [place] (1.001-1.035) Urine Protein (Negative) mg/dL Urine Glucose (UA) (Negative) mg/dL Urine Ketones (Negative) mg/dL Ur Blood (Man) (Negative) Urine Nitrate (Negative) Urine Bilirubin (Negative) Urine Urobilinogen (<2.0) mg/dL Leukocyte Esterase Rfl (Negative) LASHAY/UL Urine RBC (0-2) /hpf Urine WBC (0-3) /hpf Ur Squamous Epith Cells (Few) /hpf Urine Bacteria /hpf Urine Casts Influenza A (RT-PCR) Pending Influenza B (RT-PCR) Pending RSV (RT-PCR) Pending SARS-CoV-2 RNA (RT-PCR) Pending ABG Data ABG results: 06/24/25 22:48 VBG pH 7.150 L* VBG pCO2 24.3 L* VBG pO2 61.3 H VBG HCO3 8.3 L O2 Delivery Device Room air O2 Liters/Min Not Reportable FiO2 21 Critical Care Time Critical Care Time Critical Care Time: Yes Total Critical Care Time: 35 Discharge Plan Discharge Clinical Impression: DKA (diabetic ketoacidosis), Drug side effects Patient Disposition: Still a Patient Condition: Stable Patient Language: Stateless Prescriptions: No Action cholecalciferol (vitamin D3) 1,250 mcg (50,000 unit) capsule 1,250 mcg PO MONTHLY hydrocortisone acetate [Anusol-HC] 25 mg suppository 25 mg RECTAL BID Qty: 12 0RF hydrocortisone acetate [Anusol-HC] 25 mg suppository 25 mg RECTAL BID Qty: 12 0RF bupropion HCl 150 mg tablet extended release 24 hr See Rx Instructions .ROUTE .COMPLEX Qty: 90 1RF Dose Instruction: TAKE 1 TABLET EVERY MORNING Rx Instructions: TAKE 1 TABLET EVERY MORNING lisinopril-hydrochlorothiazide 10-12.5 mg tablet See Rx Instructions .ROUTE .COMPLEX Qty: 90 1RF Dose Instruction: TAKE 1 TABLET DAILY Rx Instructions: TAKE 1 TABLET DAILY rosuvastatin 20 mg tablet See Rx Instructions .ROUTE .COMPLEX Qty: 90 1RF Dose Instruction: TAKE 1 TABLET DAILY Rx Instructions: TAKE 1 TABLET DAILY levothyroxine [Synthroid] 175 mcg tablet See Rx Instructions .ROUTE .COMPLEX Qty: 90 3RF Dose Instruction: TAKE 1 TABLET DAILY Rx Instructions: TAKE 1 TABLET DAILY Follow-up/Referrals: Carin Mcgee, DATA ENTRY EMAIL PROCESSOR-C [Primary Care Provider, Family Practice]
[2025-06-24] MEDS: LACTATED RINGERS 3,000 ML 999 ML IV CONT (22:46)
[2025-06-24 22:49] LABS: Hematocrit 51.9 % (42.0-52.0); Hemoglobin 17.4 g/dL (14.0-18.0); Immature Granulocyte Percent A 0.7 % (0-0.5); Lymphocytes Absolute Auto 0.96 K/mm3 (0.9-3.2); Mean Corpuscular HGB Conc 33.5 g/dl (32-36); Mean Corpuscular Hemoglobin 29.4 pg (26-34); Mean Corpuscular Volume 87.8 fl (80-100); Nucleated Red Blood Cells Absolute Auto 0.000 K/mm3 (0.0-0.012); Nucleated Red Blood Cells Perc 0.0 % (0.0-0.2); Platelet Count Result 313 k/mm3 (150-375); Red Blood Count 5.91 M/mm3 (4.6-6.20); White Blood Count 19.4 K/mm3 (4.5-10.0)
[2025-06-24 23:02] LABS: Alanine Aminotransferase 35 U/L (6-50); Albumin Level 5.1 g/dL (3.5-5.1); Alkaline Phosphatase 106 U/L (38-126); Aspartate Amino Transferase 29 U/L (17-59); Bilirubin,Total 1.4 mg/dL (0.2-1.3); Blood Urea Nitrogen 35 mg/dL (9-20); Calcium 9.1 mg/dL (8.4-10.2); Carbon Dioxide < 5 mmol/L (22-30); Chloride 90 mmol/L (98-107); Estimated CRCL calculation 49 ml/min; Estimated Glomerular Filt Rate 39; Potassium 5.7 mmol/L (3.4-5.0); Sodium 127 mmol/L (137-145); Total Protein 8.7 g/dL (6.3-8.2)
[2025-06-24 23:02] LABS: pH VBG 7.150 (7.300-7.400)
[2025-06-24 23:03] LABS: Fractional Inspired Oxygen 21 %; HCO3 VBG 8.3 mEq/l (24.0-30.0); PCO2 VBG 24.3 mmHg (42.0-48.0); PO2 VBG 61.3 mmHg (35.0-45.0)
--- OUTSIDE RECORDS SUMMARY | 2025-06-24 23:08 | XMS_ITS | Encounter Summary ---
Author Organization [facility] Address [address] [place] [address] Phone Care Team Providers Care Border Police Name Role Phone Katie Newell MD Unavailable [phone] Carin Mcgee PAPER CUP HANDLE MACHINE OPERATOR Primary Care Provider [phone] Encounter Details Date Type Department Care Team (Late st Contact Info) Description 06/23/2025 Documentation [facility] Medicine Physicians [facility] Oncology [address] [place] [address] [address] Avril Messer RN Social History Tobacco Use Types Packs/Day [...] on file 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 He was told to report to the ER for an evaluation. [facility] and had labs and an examination. His records from this visit were requested and faxed to our oncology office. They were given to Nurse Practitioner, Priyanka Sebastian to review.She will review these records and make recommendations for patient going forward./res documented in this encounter Plan of Treatment Not on file documented as of this encounter Visit Diagnoses Not on filedocumented in this encounter Care Teams Border Police Relationship Specialty Start Date End Date Carin Mcgee, MARIO [address] [place] [address] PCP - General Family Medicine 02/18/25 Katie Newell MD [address] [place] [address] Referring Physician Dermatology 02/05/25 documented as of this encounter
--- OUTSIDE RECORDS SUMMARY | 2025-06-24 23:09 | XMS_ITS | Encounter Summary ---
Author Organization [facility] Address [address] [place] [address] Phone Care Team Providers Care Electric Wheelchair Repairer Name Role Phone Katie Newell MD Unavailable [phone] Carin Mcgee GENERATION TECHNICIAN Primary Care Provider [phone] Reason for Referral * Consultation (Routine) - Pending Review Specialty Diagnoses / Procedures Referred By Anisa scherer Referred To Contact Endocrinology Diagnoses Prediabetes Priyanka Sebastian, MARIO [address] [place] [address] [address] Phone: tel: fax: [facility] Endocrinology at [address] [address] Phone: tel: fax: Referral ID Status Reason Start Date Expiration Date Visits Requested Visits Authorized [id number] Pending Review Specialty Services Required 06/23/2025 07/23/2026 1 1 Question Answer Please select the performing region: [facility] [[id number]] Please select the performing department: [facility] [[id number]] # of visits: 1 Comments Evaluate for underlying prediabetes and management possibly aggravated by immunotherapy. 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 Gender Identity Not on file Sexual Orientation Not on file documented as of this encounter Plan of Treatment Scheduled Referrals Name Type Priority Associated Diagnoses Order Schedule Ambulatory referral to Endocrinology Outpatient Referral Routine Prediabetes Expected: 07/07/2025 (Approximate), Expires: 06/23/2026 documented as of this encounter Visit Diagnoses Diagnosis Prediabetes- Primary Other abnormal glucose documented in this encounter Care Teams Electric Wheelchair Repairer Relationship Specialty Start Date End Date Carin Mcgee, GENERATION TECHNICIAN [address] [place] [address] PCP - General Family Medicine 02/18/25 Katie Newell MD [address] [place] [address] Referring Physician Dermatology 02/05/25 documented as of this encounter
--- OUTSIDE RECORDS SUMMARY | 2025-06-24 23:09 | XMS_ITS | Clinical Summary ---
Author Organization [facility] Address [address] [place] [address] Care Team Providers Care Experience Design Director Name Role Phone Belkis Denny MD Primary Care Provider + Source Comments [facility] [employer],non-owned Affiliates and Associated Physician Practices is amultiple site organization consisting of ambulatory clinics and hospital sitesin [place], [place], [place] and [place]. This disclosure is being madepursuant to the Care Everywhere program and may not contain all information available regarding this patient. 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
--- OUTSIDE RECORDS SUMMARY | 2025-06-24 23:09 | XMS_ITS | Clinical Summary ---
Author Organization [facility] Medical Office Building B Address [address] [place] [address] Care Team Providers Care Home Care Specialist Name Role Phone Katie Newell MD Unavailable [phone] Carin Mcgee CAN TOP SETTER Primary Care Provider [phone] Allergies No known active allergies Medications lisinopril-hydr [...] Encounters Date Type Department Care Team Description 06/23/2025 Documentation [facility] Oncology [address] [place] [address] B [facility] [address] [place] [address] Avril Messer RN 06/23/2025 Orders Only [facility] Oncology [address] [place] [address] [address] [place] [address] Priyanka Sebastian, MARIO Prediabetes (Primary Dx) 06/19/2025 Telephone [facility] Oncology [address] [place] [address] Miracle Reeves, JENNIFER 06/10/2025 2:00 PM CDT Infusion [facility]fusion [facility] [address] [facility] [address] [place] [address] Malik Bradford, JENNIFER Melanoma of flank (HCC) (Primary Dx) 06/09/2025 2:45 PM CDT Office Visit [facility] Physicians [facility] Oncology [address] [place] [address] [address] [place] [address] Cheo Ba MD 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); Melanoma of flank (HCC); Warthin's tumor; Abnormal positron emission tomography (PET) scan 06/05/2025 2:15 PM CDT Lab [place] [id number] [place] [address] 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); Melanoma of flank (HCC) 06/04/2025 Orders Only [facility] On[facility] [address] [place] [address] [address] [place] [address] Cheo Ba MD 04/23/2025 11:30 AM CDT Infusion [facility] Cancer Infusion [address] [place] [address] Melanoma of flank (HCC) (Primary Dx) 04/23/2025 11:15 AM CDT Office Visit [facility] Oncology [address] [place] [address] [address] [place] [address] Cheo Ba MD Melanoma of flank (HCC) (Primary Dx); 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) 04/23/2025 10:45 AM CDT Lab [address] [place] [address] 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); Melanoma of flank (HCC) 04/22/2025 Telephone [facility] [address] [place] [address] [address] [place] [phone] Viky Robb CLT 04/16/2025 Telephone [facility] [address] [place] [address] [address] [place] [phone] Sharmaine Babin RN 04/07/2025 Orders Only [facility] [address] [place] [address] [address] [place] [address] Cheo Ba MD 04/07/2025 Orders Only [facility] [address] [place] [address] [address] [place] [phone] Cheo Ba MD Melanoma of flank (HCC) (Primary Dx) 04/07/2025 Orders Only [facility] [address] [place] [address] Office [facility] [address] [place] [address] Cheo Ba MD Melanoma of flank (HCC) (Primary Dx) 04/02/2025 Telephone [facility] [place] Cancer Infusion [facility] [address] [facility] [address] [place] [address] Cheo Ba MD 03/31/2025 Telephone [facility] [address] [facility] Medical Office Bldg [address] [place] [address] Sharmaine Babin RN 03/27/2025 1:15 PM CDT Office Visit [facility] Surgery [address] [facility] Floor [address] [place] [address] Seema Gutierrez MD 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) 03/25/2025 1:57 PM CDT - 03/25/2025 11:59 PM CDT Hospital Encounter 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 73 m2 Comment: [...] MD LAB BLOOD ORDERABLES Melissa l Result [facility] [address] [facility] Department [place] [address] * (ABNORMAL) Differential, auto (06/05/2025 2:17 PM CDT) Pathologist [facility] Neutrophil abs 4.14 1.50 - 6.50 K/cumm Imm gran abs 0.01 0.00 - 0.10 K/cumm [facility] Lymphocyte abs 1.68 0.80 - 3.30 K/cumm [facility] Monocyte abs 0.88(H) 0.20 - 0.80 K/cumm [facility] Eosinophil abs 0.18 0.00 - 0.50 K/cumm [facility] Basophil abs 0.02 0.00 - 0.10 K/cumm [facility] Neutrophil pct 60.0 % [facility] Comment: Interpretive Data Percent cell count reference ranges are not reported, since discordance with absolute values may lead to misinterpretation of CBC data. Current Interpretive Data was last revised on 2018. Imm gran pct 0.1 % [facility] Comment: Interpretive Data Percent cell count reference ranges are not reported, since discordance with absolute values may lead to misinterpretation of CBC data. Current Interpretive Data was last revised on 2018. Lymphocyte pct 24.3 % [facility] Comment: Interpretive Data Percent cell count reference ranges are not reported, since discordance with absolute values may lead to misinterpretation of CBC data. Current Interpretive Data was last revised on 2018. Monocyte pct 12.7 % [facility] Comment: Interpretive Data Percent cell count reference ranges are not reported, since discordance with absolute values may lead to misinterpretation of CBC data. Current Interpretive Data was last revised on 2018. Eosinophil pct 2.6 % [facility] Comment: Interpretive Data Percent cell count reference ranges are not reported, since discordance with absolute values may lead to misinterpretation of CBC data. Current Interpretive Data was last revised on 2018. Basophil pct 0.3 % [facility] Comment: Interpretive Data Percent cell count reference ranges are not reported, since discordance with absolute values may lead to misinterpretation of CBC data. Current Interpretive Data was last revised on 2018. Blood 06/05/2025 2:17 PM CDT 06/05/2025 5:49 PM CDT us Cheo Ba MD LAB BLOOD ORDERABLES Melissa parra Result [facility] [address] [facility] Department [place] [address] * CBC with auto differential (06/05/2025 2:17 PM CDT) WBC 6.91 3.80 - 9.90 K/cumm Hgb 14.9 13.0 - 17.5 g/dL [facility] Hct 45.2 38.9 - 50.3 % [facility] Plt 234 150 - 400 K/cumm [facility] MPV 10.9 9.1 - 12.3 fL [facility] RBC 4.92 4.30 - 5.80 M/cumm [facility] MCV 91.9 81.3 - 96.4 fL [facility] MCH 30.3 27.1 - 33.3 pg [facility] MCHC 33.0 32.3 - 35.7 g/dL [facility] RDW CV 13.1 11.1 - 14.9 % [facility] RDW SD 43.8 35.7 - 48.1 fL [facility] NRBC abs 0.00 0.00 - 0.01 K/cumm [facility] Blood 06/05/2025 2:17 PM CDT 06/05/2025 5:49 PM CDT Cheo Ba MD LAB BLOOD ORDERABLES Melissa l Result Performing Organization Address [facility] Co de Phone Number [address] [place] [address] * TSH (06/05/2025 2:17 PM CDT) [facility] Thyroid Stimulating Hormone 1.54 0.30 - 4.20 mcIUnit/mL Blood 06/05/2025 2:17 PM CDT 06/05/2025 5:49 PM CDT Cheo Ba MD LAB BLOOD ORDERABLES Melissa l Result Performing Organization Address City/[facility] Co de Phone Number [address] [employer] [address] * Comprehensive metabolic panel (06/05/2025 2:17 PM CDT) [facility] Sodium 141 135 - 145 mmol/L Potassium, pl 3.8 3.3 - 4.9 mmol/L [facility] Chloride 103 97 - 110 mmol/L [facility] CO2 27 22 - 32 mmol/L [facility] Anion gap 11 2 - 15 mmol/L [facility] BUN 21 6 - 25 mg/dL [facility] Creatinine 1.02 0.80 - 1.30 mg/dL [facility] Glucose 118 70 - 199 mg/dL [facility] Comment: Interpretive Data Fasting glucose >/= 126 [...] 2022. Calcium 9.3 8.5 - 10.3 mg/dL [facility] Bilirubin, total 0.9 0.1 - 1.2 mg/dL [facility] Protein, pl 7.3 6.5 - 8.5 g/dL [facility] Albumin 4.2 3.5 - 5.0 g/dL [facility] Alk phos 68 40 - 130 Units/L [facility] ALT 21 7 - 55 Units/L [facility] AST 23 10 - 50 Units/L [facility] Blood 06/05/2025 2:17 PM CDT 06/05/2025 5:49 PM CDT us Cheo Ba MD LAB BLOOD ORDERABLES Melissa l Result Performing Organization Address City/State/[facility] Co de Phone Number [facility] [address] [facility] Department [place] [address] * Tempus xF - Add On (sample [...] AM CDT [facility] Portal [email or web address] 04/30/2025 10:40 AM CDT [facility] Comment:[facility] link Low Coverage Regions ERRFI1, JAK1, KMT2A, MSH3, SPOP, TERT, TSC2 04/30/2025 10:40 AM CDT [facility] Tumor Mutational Arion 0.0 m/MB 04/30/2025 10:40 AM CDT [facility] [...] GENETIC TESTING Final Result [facility] [address] [facility], [address] [place], [place] [address] [place] [address] [facility] [address] [facility], [address] [place] [address] * eGFR (04/23/2025 11:20 AM CDT) eGFR [...] was last reviewed 2021. Testing performed by: [facility], [address] [facility], [place], [address] Blood 04/23/2025 11:2 0 AM CDT 04/23/2025 11:42 AM CDT us Cheo Ba MD LAB BLOOD ORDERABLES Melissa parra Result [facility] [address] [facility] [place] [address] * Differential, auto (04/23/2025 11:20 AM CDT) Neutrophil abs 3.97 1.50 - 6.50 K/cumm [facility] ([place]) Comment:Testing performed by : [facility] [address], Medical Office [facility] [address] [facility] [address], [place] [address] Imm gran abs 0.01 0.00 - 0.10 K/cumm [facility] ([place]) Comment:Testing performed by : [facility] [address], Medical Office [facility] [address], [place] [address] Lymphocyte abs 1.53 0.80 - 3.30 K/cumm [facility] ([place]) Comment:Testing performed by : [facility] [address], Medical Office [facility] [address], [place] [address] Monocyte abs 0.56 0.20 - 0.80 K/cumm [facility] ([place]) Comment:Testing performed by : [facility] [address], Medical Office [facility] [address], [place] [address] Eosinophil abs 0.11 0.00 - 0.50 K/cumm [facility] ([place]) Comment:Testing performed by : [facility] [address], Medical Office [facility] [address], [place] [address] Basophil abs 0.02 0.00 - 0.10 K/cumm [facility] ([place]) Comment:Testing performed by : [facility] [address], Medical Office [facility] [address], [place] [address] Neutrophil pct 64.0 % [facility] ([place]) Comment: Interpretive Data Percent cell count reference ranges are not reported, since discordance with absolute values may lead to misinterpretation of CBC data. Current Interpretive Data was last revised on 2022. Testing performed by: [facility] [address], Medical Office [facility] [address], [place] [address] Imm gran pct 0.2 % [facility] ([place]) Comment: Interpretive Data Percent cell count reference ranges are not reported, since discordance with absolute values may lead to misinterpretation of CBC data. Current Interpretive Data was last revised on 2022. Testing performed by: [facility] [address], Medical Office [facility] [address], [place] [address] Lymphocyte pct 24.7 % [facility] ([place]) Comment: Interpretive Data Percent cell count reference ranges are not reported, since discordance with absolute values may lead to misinterpretation of CBC data. Current Interpretive Data was last revised on 2022. Testing performed by: [facility] [address], Medical Office [facility] [address], [place] [address] Monocyte pct 9.0 % [facility] ([place]) Comment: Interpretive Data Percent cell count reference ranges are not reported, since discordance with absolute values may lead to misinterpretation of CBC data. Current Interpretive Data was last revised on 2022. Testing performed by: [facility] [address], Medical Office [facility] [address], [place] [address] Eosinophil pct 1.8 % [facility] ([place] Comment: Interpretive Data Percent cell count reference ranges are not reported, since discordance with absolute values may lead to misinterpretation of CBC data. Current Interpretive Data was last revised on 2022. Testing performed by: [facility] [address], Medical Office [facility] [address] [facility] [address], [place] [address] Basophil pct 0.3 % [facility] ([place]) Comment: Interpretive Data Percent cell count reference ranges are not reported, since discordance with absolute values may lead to misinterpretation of CBC data. Current Interpretive Data was last revised on 2022. Testing performed by: [facility] [address], Medical Office [facility] [address] [facility] [address], [place] [address] Blood 04/23/2025 11:2 0 AM CDT 04/23/2025 11:33 AM CDT Cheo Ba MD LAB BLOOD ORDERABLES Melissa l Result Performing Organization Address City/[facility]/ZIP Co de Phone Number [facility] [address] [facility] [place] [address] * Thyroid Function [place] (04/23/2025 11:20 AM CDT) TSH 0.55 0.30 - 4.20 mcIUnit/mL Comment:Testing performed by : [facility], [address] [facility], [place], [address] Blood 04/23/2025 11:2 0 AM CDT 04/23/2025 11:42 AM CDT us Cheo Ba MD LAB BLOOD ORDERABLES Melissa l Result [facility] ([place]) [address] [facility] [place] [address] * CBC with auto differential (04/23/2025 11:20 AM CDT) WBC 6.20 3.80 - 9.90 K/cumm [facility] ([place]) Comment:Testing performed by : [facility] [address], Medical Office [facility] [address] [facility] [address], [place] [address] Hgb 14.8 13.0 - 17.5 g/dL [facility] ([place]) Comment:Testing performed by : [facility] [address], Medical Office [facility] [address], [place] [address] Hct 44.1 38.9 - 50.3 % [facility] ([place]) Comment:Testing performed by : [facility] [address], Medical Office [facility] [address], [place] [address] Plt 194 150 - 400 K/cumm [facility] ([place]) Comment:Testing performed by : [facility] [address], Medical Office [facility] [address], [place] [address] MPV 10.1 9.1 - 12.3 fL [facility] ([place]) Comment:Testing performed by : [facility] [address], Medical Office [facility] [address], [place] [address] RBC 4.89 4.30 - 5.80 M/cumm [facility] ([place]) Comment:Testing performed by : [facility] [address], Medical Office [facility] [address], [place] [address] MCV 90.2 81.3 - 96.4 fL [facility] ([place]) Comment:Testing performed by : [facility] [address], Medical Office [facility] [address], [place] [address] MCH 30.3 27.1 - 33.3 pg [facility] ([place]) Comment:Testing performed by : [facility] [address], Medical Office [facility] [address], [place] [address] MCHC 33.6 32.3 - 35.7 g/dL [facility] ([place]) Comment:Testing performed by : [facility] [address], Medical Office [facility] [address], [place] [address] RDW CV 13.0 11.1 - 14.9 % [facility] ([place]) Comment:Testing performed by : [facility] [address], Medical Office [facility] [address], [place] [address] RDW SD 44.2 35.7 - 48.1 fL [facility] ([place]) Comment:Testing performed by : [facility] [address], Medical Office [facility] [address], [place] [address] Blood 04/23/2025 11:2 0 AM CDT 04/23/2025 11:33 AM CDT us Cheo Ba MD LAB BLOOD ORDERABLES Melissa parra Result [facility] ([place]) [address] [facility] [place] [address] * Comprehensive metabolic panel (04/23/2025 11:20 AM CDT) Sodium 139 135 - 145 mmol/L Comment:Testing performed by : [facility], [place], [address] Potassium, pl 3.6 3.3 - 4.9 mmol/L [facility] ([place]) Comment:Testing performed by : [facility], [place], [address] Chloride 101 97 - 110 mmol/L [facility] ([place]) Comment:Testing performed by : [facility], [place], [address] CO2 25 22 - 32 mmol/L [facility] ([place]) Comment:Testing performed by : [facility], [place], [address] Anion gap 14 2 - 15 mmol/L [facility] ([place]) Comment:Testing performed by : [place], [address] BUN 18 6 - 25 mg/dL [facility] ([place]) Comment:Testing performed by : [facility], [place], [address] Creatinine 0.99 0.80 - 1.30 mg/dL [facility] ([place]) Comment:Testing performed by : [facility], [place], [address] Glucose 104 70 - 199 mg/dL [facility] ([place]) Comment: Interpretive Data Fasting glucose >/= 126 [...] was last revised 2022. Testing performed by: [facility], [place], [address] Calcium 9.2 8.5 - 10.3 mg/dL [facility] ([place]) Comment:Testing performed by : [facility], [place], [address] Bilirubin, total 1.0 0.1 - 1.2 mg/dL [facility] ([place]) Comment:Testing performed by : [facility], [place], [address] Protein, pl 7.0 6.5 - 8.5 g/dL [facility] ([place]) Comment:Testing performed by : [facility], [place], [address] Albumin 4.3 3.5 - 5.0 g/dL [facility] ([place]) Comment:Testing performed by : [facility], [place], [address] Alk phos 65 40 - 130 Units/L [facility] ([place]) Comment:Testing performed by : [facility], [place], [address] ALT 27 7 - 55 Units/L [facility] ([place]) Comment:Testing performed by : [facility], [place], [address] AST 22 10 - 50 Units/L [facility] ([place]) Comment:Testing performed by : [facility], [place], [address] Blood 04/23/2025 11:2 0 AM CDT 04/23/2025 11:42 AM CDT us Cheo Ba MD LAB BLOOD ORDERABLES Melissa parra Result [facility] ([place]) [address] [facility] [place] [address] * MRI Brain W WO Contrast (03/25/2025 [...] Aleksandar Doe M.D. MZ: ELIJAH Report ID: [id number] Reading Location: [id number] Procedure Note Aleksandar Doe MD - 03/25/2025 [...] Aleksandar Doe M.D. MZ: ELIJAH Report ID: [id number] Reading Location: [id number] Cheo Ba MD IMG MRI PROCEDURES Final Result from Last 3 Months Insurance [employer] Care Teams Home Care Specialist Relationship Specialty Start Date End Date Carin Mcgee, CAN TOP SETTER [phone] [place] [address] PCP - General Family Medicine 02/18/25 Katie [place] MD [address] [place] [id number] Referring Physician Dermatology 02/05/25
--- OUTSIDE RECORDS SUMMARY | 2025-06-24 23:09 | XMS_ITS ---
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
[2025-06-24 23:15] LABS: Glucose 693 mg/dL (65-110)
[2025-06-24 23:31] LABS: Add Urine Microscopic? YES; Appearance Urine Clear (Clear); Glucose Urine UA 3+ mg/dL (Negative); Leukocyte Esterase Ur Negative LEU/UL (Negative); Nitrate Urine Negative (Negative); Specific Grav Ur 1.024 (1.001-1.035)
[2025-06-24 23:36] LABS: Beta-Hydroxybutyrate/Acetoace. 11.60 mmol/L (0.02-0.27)
[2025-06-25] VITALS (11 sets, daily range): BP systolic 112–144; BP diastolic 66–84; PULSE 70–100; RESP 13–20; TEMP 36.7–37.1; O2SAT 96–100; BMI 34.2
[2025-06-25 00:03] LABS: Influenza A QL RT-PCR Negative (Negative); Influenza B QL RT-PCR Negative (Negative); RSV RNA, RT-PCR Negative (Negative); SARS-CoV-2 RNA PCR Negative (Negative)
[2025-06-25 00:09] LABS: Hemoglobin A1C 7.8 % (<5.7)
[2025-06-25] MEDS: INSULIN HUMAN REGULAR (*BKC) 100 UNITS/ML 5.3 UNITS IV PUSH (00:12)
[2025-06-25] MEDS: INSULIN HUMAN REGULAR (*BKC) 100 UNITS in SODIUM CHLORIDE 0.9% IV 99 ML 10.59 UNITS IV CONT (00:13)
[2025-06-25 00:24] LABS: Blood Urea Nitrogen 34 mg/dL (9-20); Calcium 8.9 mg/dL (8.4-10.2); Carbon Dioxide < 5 mmol/L (22-30); Chloride 93 mmol/L (98-107); Estimated CRCL calculation 51 ml/min; Estimated Glomerular Filt Rate 40; Magnesium 2.1 mg/dL (1.6-2.3); Potassium 5.7 mmol/L (3.4-5.0); Sodium 128 mmol/L (137-145)
[2025-06-25 00:43] LABS: Glucose 639 mg/dL (65-110)
--- NOTE | 2025-06-25 00:59 | P.HP_ITS ---
H&P: HPI History of Present Illness Date/Time: 06/25/25 00:59 Chief Complaint: DKA Narrative: This is a 59 year old male patient with new diagnosis of diabetes who is admitted to ICU with DKA. 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 Patient came to ER on 06/20/25 with increased thirst and urination and he was found to have highly elevated glucose and new onset diabetes. His glucose was treated somewhat and he was discharged to follow up with PCP. Today he returned to ER with generalized weakness, polyuria, polydipsia, polyphagia that was worsening. Patient contacted his oncologist who referred him to Endocrinology but no medications started yet. Prior to ER return, patient had to leave work early because he was so run down and feeling terrible. He also had emesis x1 after trying to consume a blueberry and yakut yogurt smoothy. Patient reports he hasn't vomited in 25 years so when this happened he knew he needed to get checked out. Patient stated that he recently had his second round of Keytruda for his metastatic melanoma. He is supposed to get infusions every 6 weeks for a year. In ER patient found to have very significant metabolic acidosis with anion gap estimated around 30 but unable to calculate exactly due to carbon dioxide < 5 on CMP. He received 3 liters of LR bolus and started on insulin drip. Glucose was 693 on initial chemistry panel. Patient admitted with ongoing DKA protocol set. He denies abdominal pain, vomiting, fever or chills. Urine shows 3+ glucose and 4+ ketones. Beta-hydro xybutyrate 11.6. TONNY also noted with estimated GFR 39 on arrival. This is suspected to be dehydration/DKA related and no suspicion for obstructive uropathy. Patient reports profuse urination recently. Potassium initially 5.7 but is lowering and potassium containing IV fluids will be started. Likewise, TONNY is beginning to improve slightly. Patient reports he already feels significantly better than when he came to the ER. Review of Systems Review of Systems: All systems reviewed & are unremarkable except as noted in HPI and below PMFSH Past Medical History Medical History Encounter for administration of vaccine Mixed hyperlipidemia Thyroid cancer AC (generalized anxiety disorder) Benign essential HTN Surgical History Surgical History H/O: vasectomy Hx of colonoscopy 2018- repeat in 5 years S/P thyroidectomy Family History Family History Mother Patient's mother is in good health Asthma Father Patient's father is in good health Sibling Patient's sister is in good health Social History Social History Social History: Smoking packs per day: 0.5 Smoking cigarettes per day: 10.0 Years smoked: 14 Smoking pack-years: 7.00 Smoking status: Former smoker Tobacco type: cigarettes Second hand tobacco smoke exposure: No Smoking end date: 10/15/94 Alcohol intake: current Drinks per week: 2 Substance use: never Substance use type: does not use Do You Feel Safe in your Home?: Yes Lack of Transportation: No Lack of Food: Never True Current Housing: I Have Housing Concerned About Future Housing: No Difficulty Paying Gas/Electric Bills: No Difficulty Paying for Meds: No Currently Unemployed: No Education: High School Diploma/GED Difficulty w/ Childcare or Family Care: No Living arrangements: with family Occupation/Education: occupation Gender identity (if verbalized by the patient): Male Sexual Orientation (if Verbalized by the Patient): Straight or Heterosexual Spiritual care concerns: No Meds Home Medications and Allergies Home Medications ?Medication ?Instructions ?Recorded ?Confirmed ?Type bupropion HCl 150 mg 24 hr tablet, See Rx Instructions .Route 01/12/25 06/25/25 Rx extended release .COMPLEX #90 tabs lisinopril 10 See Rx Instructions .Route 0 01/12/25 06/25/25 Rx mg-hydrochlorothiazide 12.5 mg .COMPLEX #90 tabs tablet rosuvastatin 20 mg tablet See Rx Instructions .Route 0 01/12/25 06/25/25 Rx .COMPLEX #90 tabs levothyroxine 175 mcg tablet See Rx Instructions .Rout e 06/02/25 06/25/25 Rx (Synthroid) .COMPLEX #90 tabs Allergies Allergy/AdvReac Type Severity Reaction Status Date / Time No Known Allergies Allergy Verified 06/19/25 23:59 Vital Signs Vital Signs - 24 hr 06/24/25 22:24 06/25/25 00:16 Pulse Rate 97 96 Respiratory Rate 18 16 Blood Pressure 143/106 H 144/82 H Pulse Oximetry 96 100 Exam Narrative: APPEARANCE: No apparent distress. Head: atraumatic. EYES: EOMI, NOSE: Atraumatic NECK: Trachea midline RESPIRATORY: No increased rate of breathing CTAB CARDIOVASCULAR: RRR, no peripheral edema ABDOMINAL: Non-distended soft nontender MUSCULOSKELETAl: No obvious deformities NEURO: Alert. Moving 4/4 extremities SKIN:: Warm, dry. Normal color PSYCHIATRIC: Normal affect H&P: Results Labs Labs: Short CBC 06/24/25 Range/Units 22:42 WBC 19.4 H (4.5-10.0) K/mm3 Hgb 17.4 (14.0-18.0) g/dL Hct 51.9 (42.0-52.0) % Plt Count 313 D (150-375) k/mm3 BMP 06/24/25 06/25/25 22:42 00:01 Sodium 127 L 128 L Potassium 5.7 H 5.7 H Chloride 90 L 93 L Carbon Dioxide < 5 L < 5 L BUN 35 H D 34 H Creatinine 1.82 H 1.75 H Glucose 693 H* 639 H* Calcium 9.1 8.9 Liver Function 06/24/25 Range/Units 22:42 Total Bilirubin 1.4 H (0.2-1.3) mg/dL AST 29 (17-59) U/L ALT 35 (6-50) U/L Alkaline Phosphatase 106 (38-126) U/L Albumin 5.1 (3.5-5.1) g/dL Urine 06/24/25 Range/Units 23:20 Urine Color Yellow (Yellow) Urine Appearance Clear (Clear) Urine pH 5.0 (5.0-9.0) Ur Specific [place] 1.024 (1.001-1.035) Urine Protein Trace (Negative) mg/dL Urine Glucose (UA) 3+ H (Negative) mg/dL ABG ABG results: VBG pH 7.150, pCO2 24.3, pO2 61.3, HCO3 8.3 Attestation: I personally reviewed and interpreted this ABG as follows: Interpretation: Significant metabolic acidosis with incomplete respiratory compensation Pulse Oximetry SpO2 results: 96-98% on room air Attestation: I personally reviewed and interpreted this pulse oximetry as follows: Interpretation: No need for supplemental oxygenation at this time ECG Attestation: I personally reviewed and interpreted this ECG as follows: ECG completion date: 06/24/25 ECG completion time: 22:52 Prior ECG tracings: not available for review Interpretation: Sinus rhythm with PVCs rate of 90, NJ 158, QRSd 105, QTC 463, QRS axis -3, no STEMI Imaging Chest x-ray: My impression: My independent interpretation of CXR 1 view portable no large consolidative pneumonia or pleural effusion. Assessment and Plan Assessment and plan (1) DKA (diabetic ketoacidosis): Code(s): E11.10 - Type 2 diabetes mellitus with ketoacidosis without coma Status: Acute Assessment and Plan: -New onset diabetes -Metabolic acidosis with incomplete respiratory compensation -Glucose nearly 700 on arrival -Anion gap calculated around 30 -Insulin drip in place (2) Hypothyroidism associated with surgical procedure: Code(s): E89.0 - Postprocedural hypothyroidism Status: Chronic Assessment and Plan: -Continue levothyroxine (3) Benign essential HTN: Code(s): I10 - Essential (primary) hypertension Status: Acute Assessment and Plan: -Stable, hold lisinopril/hctz due to TONNY (4) Mixed hyperlipidemia: Code(s): E78.2 - Mixed hyperlipidemia Status: Acute Assessment and Plan: -Continue rosuvastatin (5) AC (generalized anxiety disorder): Code(s): F41.1 - Generalized anxiety disorder Status: Acute Assessment and Plan: -Stable, continue bupropion Quality VTE Prophylaxis VTE prophylaxis: pharmacologic ordered Due to a high probability of clinically significant, life threatening deterioration, the patient required my highest level of preparedness to intervene emergently and I personally spent this critical care time directly and personally managing the patient. This critical care time included obtaining a history; examining the patient; pulse oximetry; ordering and review of studies; arranging urgent treatment with development of a management plan; evaluation of patient's response to treatment; frequent reassessment; and discussions with other providers. It was exclusive of separately billable procedures and treating other patients and teaching time. Please see Assessment and Plan section and the rest of the note for further information on patient assessment and treatment. Critical Care time: 40 minutes Hospitalist MIPS Advance Care Plan I have confirmed that the patient's Advanced Care Plan is present, code status is documented, or surrogate decision maker is listed in patient medical record.: Yes Medication Reconciliation I have utilized all available resources to obtain, update and review the patients current medications (includes all prescriptions, OTC, herbals, cannabis, and nutritional supplements).: Yes
[2025-06-25] MEDS: SODIUM CHLORIDE 0.9% IV 1,000 ML 150 ML IV CONT (01:02)
[2025-06-25 01:22] LABS: MRSA (PCR) NOT DETECTED (NOT DETECTE)
[2025-06-25 01:58] LABS: Blood Urea Nitrogen 34 mg/dL (9-20); Calcium 8.8 mg/dL (8.4-10.2); Carbon Dioxide < 5 mmol/L (22-30); Chloride 95 mmol/L (98-107); Estimated CRCL calculation 52 ml/min; Estimated Glomerular Filt Rate 41; Glucose 561 mg/dL (65-110); Potassium 4.6 mmol/L (3.4-5.0); Sodium 130 mmol/L (137-145)
--- NOTE | 2025-06-25 02:22 | ADMGEN ---
This patient, Octaviano Madrid, was admitted to Intensive Care Unit-2. Patient/family oriented to hospital policies and general routines including ID bracelet, bed and alarms, visiting hours, pain management, procedures, bathroom and other care routines, personal items, smoking policy, room service/diet, and visiting hours. Information on how to activate the Rapid Response Team has been discussed. Patient/Family are encouraged to report perceived risks to care and to ask questions if they do not understand what they are told or what they should do. Received report from JENNIFER Ziegler at 0049, patient arrived at 0106 via stretcher with out issue.
[2025-06-25] MEDS: KCL 20 MEQ/D5/0.45% SOD CHL 1,000 ML 150 ML IV CONT ×2 (03:00→10:21)
[2025-06-25] MEDS: SODIUM BICARBONATE 8.4% 50 MEQ/50 ML SYRINGE IV PUSH (03:00)
[2025-06-25 06:17] LABS: Fractional Inspired Oxygen 21 %; HCO3 VBG 17.3 mEq/l (24.0-30.0); PCO2 VBG 32.5 mmHg (42.0-48.0); PO2 VBG 43.6 mmHg (35.0-45.0); pH VBG 7.345 (7.300-7.400)
[2025-06-25 06:25] LABS: Hematocrit 43.9 % (42.0-52.0); Hemoglobin 15.2 g/dL (14.0-18.0); Immature Granulocyte Percent A 0.3 % (0-0.5); Lymphocytes Absolute Auto 2.08 K/mm3 (0.9-3.2); Mean Corpuscular HGB Conc 34.6 g/dl (32-36); Mean Corpuscular Hemoglobin 29.9 pg (26-34); Mean Corpuscular Volume 86.4 fl (80-100); Nucleated Red Blood Cells Absolute Auto 0.000 K/mm3 (0.0-0.012); Nucleated Red Blood Cells Perc 0.0 % (0.0-0.2); Platelet Count Result 272 k/mm3 (150-375); Red Blood Count 5.08 M/mm3 (4.6-6.20); White Blood Count 15.4 K/mm3 (4.5-10.0)
[2025-06-25 06:46] LABS: Albumin Level 4.1 g/dL (3.5-5.1); Anion Gap 15 mmol/L (4-12); Anion Gap 16 mmol/L (4-12); Blood Urea Nitrogen 34 mg/dL (9-20); Calcium 8.5 mg/dL (8.4-10.2); Calcium 8.6 mg/dL (8.4-10.2); Carbon Dioxide 16 mmol/L (22-30); Chloride 98 mmol/L (98-107); Estimated CRCL calculation 70 ml/min; Estimated Glomerular Filt Rate 60; Glucose 362 mg/dL (65-110); Potassium 4.0 mmol/L (3.4-5.0); Sodium 129 mmol/L (137-145); Sodium 130 mmol/L (137-145)
[2025-06-25 06:52] LABS: Beta-Hydroxybutyrate/Acetoace. 3.39 mmol/L (0.02-0.27)
[2025-06-25 07:00] LABS: Procalcitonin 0.1 ng/mL
[2025-06-25 07:14] LABS: Thyroid Stimulating Hormone Reflex 0.335 uIU/mL (0.465-4.68)
[2025-06-25] MEDS: LEVOTHYROXINE SODIUM 100 MCG, LEVOTHYROXINE SODIUM 75 MCG 175 MCG PO (07:14)
[2025-06-25] MEDS: INSULIN HUMAN REGULAR (*BKC) 100 UNITS in SODIUM CHLORIDE 0.9% IV 99 ML 14.1 UNITS IV CONT (07:16)
[2025-06-25] MEDS: ROSUVASTATIN 20 MG TABLET PO (08:30)
[2025-06-25] MEDS: LACTATED RINGERS 500 ML IV CONT (08:30)
[2025-06-25] MEDS: ENOXAPARIN 40 MG/0.4 ML SYRINGE SUB-Q (08:30)
--- NOTE | 2025-06-25 09:12 | WPDCNINT ---
Assessment and Plan Assessment and plan (1) DKA (diabetic ketoacidosis): Code(s): E11.10 - Type 2 diabetes mellitus with ketoacidosis without coma Status: Acute Assessment and Plan: Patient presented with polydipsia, poly urea, hyperglycemia, fatigue, nausea. Was found to have anion gap metabolic acidosis, elevated beta hydroxybutyrate, UA showed positive ketones and glucose. -patient was diagnosed with diabetic ketoacidosis, given 3 L IV fluid bolus, started on insulin infusion and IV fluids per DKA protocol -this morning gap is closed, CO2 19 -will transition patient to long-acting insulin, sliding scale insulin along with Accu-Cheks -start patient on diabetic carb consistent diet (2) Diabetes mellitus, new onset: Code(s): E11.9 - Type 2 diabetes mellitus without complications Status: Acute Assessment and Plan: New onset diabetes, -adaptive physical educator and dietitian have been consult -hemoglobin A1c is 7.8 this admission (3) Hypothyroidism associated with surgical procedure: Code(s): E89.0 - Postprocedural hypothyroidism Status: Chronic Assessment and Plan: Continue levothyroxine (4) Benign essential HTN: Code(s): I10 - Essential (primary) hypertension Status: Acute Assessment and Plan: Will restart lisinopril, hold the hydrochlorothiazide (5) Mixed hyperlipidemia: Code(s): E78.2 - Mixed hyperlipidemia Status: Acute Assessment and Plan: Continue rosuvastatin (6) AC (generalized anxiety disorder): Code(s): F41.1 - Generalized anxiety disorder Status: Acute Assessment and Plan: Continue bupropion Plan DVT prophylaxis: Lovenox Stress ulcer prophylaxis: Not indicated Nutrition: Diabetic carb consistent diet Code Status: Full code Critical Care Time Spent: 47 minutes Discussed with patient and his and updated them with patient's condition and plan of care. I answered all their questions Due to a high probability of clinically significant, life threatening deterioration, the patient required my highest level of preparedness to intervene emergently and I personally spent this critical care time directly and personally managing the patient. This critical care time included obtaining a history; examining the patient; pulse oximetry; ordering and review of studies; arranging urgent treatment with development of a management plan; evaluation of patient's response to treatment; frequent reassessment; and discussions with other providers. It was exclusive of separately billable procedures and treating other patients and teaching time. Please see Assessment and Plan section and the rest of the note for further information on patient assessment and treatment This dictation may have been done utilizing a voice recognition system. Attempts have been made to correct errors. However, there may be uncorrected grammatical, spelling, and recognitions errors present. Head Refrigerating Engineer Consult Note Consult date: 06/25/25 Reason for consult: Diabetic ketoacidosis, hyperglycemia, polyuria, polydipsia, nausea, fatigue HPI: Octaviano Madrid is a 59 year old male with past medical history of hyperlipidemia, thyroid cancer status post thyroidectomy, general anxiety disorder, essential hypertension presented the ED on 06/24/2025 with complains of polyuria, polydipsia, nausea, hyperglycemia and fatigue. Patient was found to have a blood sugar of 693 in the ER, CO2< 5, anion gap was not calculable. WBC 19.4, hemoglobin 17.4, platelets 313, sodium 127, potassium 5.7, chloride 90, BUN 35, creatinine 1.82. Beta hydroxybutyrate was elevated. UA showed 3+ glucose and 4+ ketones. Also has some acute renal injury with creatinine of 1.8 to admission. Patient was given 3 L IV fluids in all, started on insulin infusion and transferred to the ICU for further management Patient seen examined this morning in the ICU, is awake, alert, oriented states he feels much better. Denies any nausea, vomiting, abdominal pain. Patient has been adequately fluid-resuscitated, hemodynamically stable, adequate urine output, afebrile. Anion gap is closed, creatinine was improved, CO2 is 19. PMFSH Past Medical History Medical History Encounter for administration of vaccine Mixed hyperlipidemia Thyroid cancer AC (generalized anxiety disorder) Benign essential HTN Surgical History Surgical History H/O: vasectomy Hx of colonoscopy 2018- repeat in 5 years S/P thyroidectomy Family History Family History Mother Patient's mother is in good health Asthma Father Patient's father is in good health Sibling Patient's sister is in good health Social History Social History Social History: Smoking packs per day: 0.5 Smoking cigarettes per day: 10.0 Years smoked: 14 Smoking pack-years: 7.00 Smoking status: Former smoker Tobacco type: cigarettes Second hand tobacco smoke exposure: No Smoking end date: 10/15/94 Alcohol intake: current Drinks per week: 2 Substance use: never Substance use type: does not use Do You Feel Safe in your Home?: Yes Lack of Transportation: No Lack of Food: Never True Current Housing: I Have Housing Concerned About Future Housing: No Difficulty Paying Gas/Electric Bills: No Difficulty Paying for Meds: No Currently Unemployed: No Education: High School Diploma/GED Difficulty w/ Childcare or Family Care: No Living arrangements: with family Occupation/Education: occupation Gender identity (if verbalized by the patient): Male Sexual Orientation (if Verbalized by the Patient): Straight or Heterosexual Spiritual care concerns: No Meds Home Medications and Allergies Home Medications ?Medication ?Instructions ?Recorded ?Confirmed ?Type bupropion HCl 150 mg 24 hr tablet, See Rx Instructions .Route 01/12/25 06/25/25 Rx extended release .COMPLEX #90 tabs lisinopril 10 See Rx Instructions .Route 01/12/25 06/25/25 Rx mg-hydrochlorothiazide 12.5 mg .COMPLEX #90 tabs tablet rosuvastatin 20 mg tablet See Rx Instructions .Route 01/12/25 06/25/25 Rx .COMPLEX #90 tabs levothyroxine 175 mcg tablet See Rx Instructions .Route 06/02/25 06/25/25 Rx (Synthroid) .COMPLEX #90 tabs Allergies Allergy/AdvReac Type Severity Reaction Status Date / Time No Known Allergies Allergy Verified 06/19/25 23:59 Vital Signs Vital Signs - 24 hr 06/24/25 22:24 06/25/25 00:16 06/25/25 01:13 Temperature 98.1 F Pulse Rate 97 96 100 Respiratory Rate 18 16 16 Blood Pressure 143/106 H 144/82 H 137/66 Pulse Oximetry 96 100 96 Oxygen Delivery 06/25/25 01:20 06/25/25 02:00 06/25/25 02:00 Temperature 98.6 F Pulse Rate 93 94 94 Respiratory Rate 16 16 Blood Pressure 134/84 128/81 Pulse Oximetry 100 98 Oxygen Delivery 06/25/25 04:00 06/25/25 04:00 06/25/25 04:00 Temperature 98.2 F Pulse Rate 100 83 100 Respiratory Rate 16 16 Blood Pressure 141/78 H Pulse Oximetry 97 97 Oxygen Delivery Room Air 06/25/25 06:00 06/25/25 06:00 Temperature Pulse Rate 80 80 Respiratory Rate 14 Blood Pressure 138/77 Pulse Oximetry 100 Oxygen Delivery Exam Narrative: General: Pleasant gentleman no acute distress HEENT:? Pupils equal and reactive, sclerae is clear, moist oral mucosa Neck:? Supple Respiratory:? Clear to auscultation bilaterally, no wheezing, adequate air entry Cardiac:? S1-S2 is normal, regular rate and rhythm Abdomen:? Soft, nontender, nondistended, obese, normoactive bowel sounds Extremities:? No edema, palpable pedal pulses Neuro:? Intact, nonfocal Skin:? No skin lesions noted Psych:? Normal mentation and affect Results Labs 06/25/25 06:15 06/25/25 10:29 Labs: Short CBC 06/24/25 06/25/25 Range/Units 22:42 06:15 WBC 19.4 H 15.4 H (4.5-10.0) K/mm3 Hgb 17.4 15.2 (14.0-18.0) g/dL Hct 51.9 43.9 (42.0-52.0) % Plt Count 313 D 272 (150-375) k/mm3 [facility] 06/24/25 06/25/25 06/25/25 22:42 00:01 01:36 Sodium 127 L 128 L 130 L Potassium 5.7 H 5.7 H 4.6 Chloride 90 L 93 L 95 L Carbon Dioxide < 5 L < 5 L < 5 L BUN 35 H D 34 H 34 H Creatinine 1.82 H 1.75 H 1.71 H Glucose 693 H* 639 H* 561 H* Calcium 9.1 8.9 8.8 06/25/25 06/25/25 06/25/25 06:15 06:15 06:15 Sodium 130 L 129 L Potassium 4.0 4.0 Chloride 98 Carbon Dioxide BUN Creatinine Glucose Calcium 06/25/25 06/25/25 06/25/25 06:15 06:15 06:15 Sodium Potassium Chloride 98 Carbon Dioxide 16 L 16 L BUN 34 H 34 H Creatinine 1.24 Glucose Calcium 06/25/25 06/25/25 06/25/25 06:15 06:15 06:15 Sodium Potassium Chloride Carbon Dioxide BUN Creatinine 1.25 Glucose 362 H 362 H Calcium 8.5 8.6 Liver Function 06/24/25 06/25/25 Range/Units 22:42 06:15 Total Bilirubin 1.4 H (0.2-1.3) mg/dL AST 29 (17-59) U/L ALT 35 (6-50) U/L Alkaline Phosphatase 106 (38-126) U/L Albumin 5.1 4.1 (3.5-5.1) g/dL Urine 06/24/25 Range/Units 23:20 Urine Color Yellow (Yellow) Urine Appearance Clear (Clear) Urine pH 5.0 (5.0-9.0) Ur Specific [place] 1.024 (1.001-1.035) Urine Protein Trace (Negative) mg/dL Urine Glucose (UA) 3+ H (Negative) mg/dL
[2025-06-25 10:53] LABS: Anion Gap 11 mmol/L (4-12); Blood Urea Nitrogen 30 mg/dL (9-20); Calcium 8.4 mg/dL (8.4-10.2); Carbon Dioxide 19 mmol/L (22-30); Chloride 102 mmol/L (98-107); Estimated CRCL calculation 92 ml/min; Estimated Glomerular Filt Rate > 60; Glucose 208 mg/dL (65-110); Potassium 3.8 mmol/L (3.4-5.0); Sodium 132 mmol/L (137-145)
[2025-06-25 12:22] LABS: Free T4 Free Thyroxine Reflex 1.42 ng/dL (0.78-2.19)
[2025-06-25 13:25] LABS: Total Triiodothyronine (T3) 0.45 NG/ML (0.82-1.58)
[2025-06-25] MEDS: INSULIN GLARGINE (*BKC) 100 UNITS/ML 40 UNITS SUB-Q (13:27)
[2025-06-25] MEDS: buPROPion HCL XL (24 HR) 150 MG TABCR PO (15:49)
[2025-06-25] MEDS: INSULIN ASPART (*BKC) 100 UNITS/ML SUB-Q ×2 (16:58→23:51)
[2025-06-25] MEDS: INSULIN ASPART (*BKC) 100 UNITS/ML 8 UNITS SUB-Q (19:28)
[2025-06-25] MEDS: INSULIN ASPART (*BKC) 100 UNITS/ML 6 UNITS SUB-Q (20:46)
[2025-06-26 06:00] VITALS: BP 116/74; PULSE 76; RESP 20; TEMP 36.4; O2SAT 97
[2025-06-26] MEDS: LEVOTHYROXINE SODIUM 100 MCG, LEVOTHYROXINE SODIUM 75 MCG 175 MCG PO (06:04)
[2025-06-26 06:46] LABS: Hematocrit 41.1 % (42.0-52.0); Hemoglobin 14.1 g/dL (14.0-18.0); Immature Granulocyte Percent A 0.3 % (0-0.5); Lymphocytes Absolute Auto 1.95 K/mm3 (0.9-3.2); Mean Corpuscular HGB Conc 34.3 g/dl (32-36); Mean Corpuscular Hemoglobin 29.9 pg (26-34); Mean Corpuscular Volume 87.1 fl (80-100); Nucleated Red Blood Cells Absolute Auto 0.000 K/mm3 (0.0-0.012); Nucleated Red Blood Cells Perc 0.0 % (0.0-0.2); Platelet Count Result 181 k/mm3 (150-375); Red Blood Count 4.72 M/mm3 (4.6-6.20); White Blood Count 7.7 K/mm3 (4.5-10.0)
[2025-06-26 07:13] LABS: Alanine Aminotransferase 25 U/L (6-50); Albumin Level 3.6 g/dL (3.5-5.1); Alkaline Phosphatase 70 U/L (38-126); Anion Gap 7 mmol/L (4-12); Aspartate Amino Transferase 27 U/L (17-59); Bilirubin,Total 1.3 mg/dL (0.2-1.3); Blood Urea Nitrogen 19 mg/dL (9-20); Calcium 8.2 mg/dL (8.4-10.2); Carbon Dioxide 26 mmol/L (22-30); Chloride 98 mmol/L (98-107); Estimated CRCL calculation 89 ml/min; Estimated Glomerular Filt Rate > 60; Glucose 329 mg/dL (65-110); Magnesium 1.8 mg/dL (1.6-2.3); Potassium 4.0 mmol/L (3.4-5.0); Sodium 131 mmol/L (137-145); Total Protein 6.3 g/dL (6.3-8.2)
[2025-06-26] MEDS: INSULIN ASPART (*BKC) 100 UNITS/ML SUB-Q ×4 (08:15→20:47)
[2025-06-26] MEDS: INSULIN GLARGINE (*BKC) 100 UNITS/ML 40 UNITS SUB-Q (08:16)
[2025-06-26] MEDS: ENOXAPARIN 40 MG/0.4 ML SYRINGE SUB-Q (08:17)
[2025-06-26] MEDS: buPROPion HCL XL (24 HR) 150 MG TABCR PO (08:17)
[2025-06-26] MEDS: ROSUVASTATIN 20 MG TABLET PO (08:17)
[2025-06-26 10:57] VITALS: O2SAT 97
--- NOTE | 2025-06-26 11:34 | P.PNIM_ITS ---
Progress Note: A&P Assessment and Plan (1) DKA (diabetic ketoacidosis): Code(s): E11.10 - Type 2 diabetes mellitus with ketoacidosis without coma Status: Acute Assessment and Plan: Patient presented with polydipsia, poly urea, hyperglycemia, fatigue, nausea. Was found to have anion gap metabolic acidosis, elevated beta hydroxybutyrate, UA showed positive ketones and glucose. -patient was diagnosed with diabetic ketoacidosis, given 3 L IV fluid bolus, started on insulin infusion and IV fluids per DKA protocol -this morning gap is closed, CO2 19 -will transition patient to long-acting insulin, sliding scale insulin along with Accu-Cheks -start patient on diabetic carb consistent diet 06/26/2025 Patient you is getting better. Plan is to continue current treatment. Diabetic teaching and dietitian consult. (2) Diabetes mellitus, new onset: Code(s): E11.9 - Type 2 diabetes mellitus without complications Status: Acute Assessment and Plan: New onset diabetes, -nutrition and dietetics instructor and dietitian have been consult -hemoglobin A1c is 7.8 this admission (3) Hypothyroidism associated with surgical procedure: Code(s): E89.0 - Postprocedural hypothyroidism Status: Chronic Assessment and Plan: Stable on current medication, will continue current treatment. (4) Benign essential HTN: Code(s): I10 - Essential (primary) hypertension Status: Acute Assessment and Plan: Stable on current medication, will continue current treatment. (5) Mixed hyperlipidemia: Code(s): E78.2 - Mixed hyperlipidemia Status: Acute Assessment and Plan: Continue rosuvastatin (6) AC (generalized anxiety disorder): Code(s): F41.1 - Generalized anxiety disorder Status: Acute Assessment and Plan: Continue bupropion Plan DVT prophylaxis: Lovenox Stress ulcer prophylaxis: Not indicated Nutrition: Diabetic carb consistent diet Code Status: Full code Critical Care Time Spent: 47 minutes Discussed with patient and his and updated them with patient's condition and plan of care. I answered all their questions Due to a high probability of clinically significant, life threatening deterioration, the patient required my highest level of preparedness to intervene emergently and I personally spent this critical care time directly and personally managing the patient. This critical care time included obtaining a history; examining the patient; pulse oximetry; ordering and review of studies; arranging urgent treatment with development of a management plan; evaluation of patient's response to treatment; frequent reassessment; and discussions with other providers. It was exclusive of separately billable procedures and treating other patients and teaching time. Please see Assessment and Plan section and the rest of the note for further information on patient assessment and treatment This dictation may have been done utilizing a voice recognition system. Attempts have been made to correct errors. However, there may be uncorrected grammatical, spelling, and recognitions errors present. Subjective Date/time seen: 06/26/25 11:34 Interval history: Patient was seen during the morning rounds today. Patient is feeling better. No shortness of breath or chest pain. Sugar is better controlled. Review of Systems Review of Systems: All systems reviewed & are unremarkable except as noted in HPI and below Exam Narrative: General: Pleasant gentleman no acute distress HEENT:? Pupils equal and reactive, sclerae is clear, moist oral mucosa Neck:? Supple Respiratory:? Clear to auscultation bilaterally, no wheezing, adequate air entry Cardiac:? S1-S2 is normal, regular rate and rhythm Abdomen:? Soft, nontender, nondistended, obese, normoactive bowel sounds Extremities:? No edema, palpable pedal pulses Neuro:? Intact, nonfocal Skin:? No skin lesions noted Psych:? Normal mentation and affect Objective Data Vital Signs Vital Signs: Vital Signs - 24 hr 06/25/25 12:00 06/25/25 12:00 06/25/25 12:00 Temperature 37.1 C Pulse Rate 70 76 100 Respiratory Rate 19 16 Blood Pressure 121/76 Pulse Oximetry 97 97 Oxygen Delivery Room Air 06/25/25 14:00 06/25/25 14:00 06/25/25 20:46 Temperature Pulse Rate 81 81 Respiratory Rate 16 Blood Pressure 122/82 Pulse Oximetry 97 Oxygen Delivery Room Air 06/25/25 21:34 06/26/25 06:00 06/26/25 08:00 Temperature 36.7 C 36.4 C Pulse Rate 92 76 Respiratory Rate 20 20 Blood Pressure 124/73 116/74 Pulse Oximetry 98 97 Oxygen Delivery Room Air 06/26/25 10:57 Temperature Pulse Rate Respiratory Rate Blood Pressure Pulse Oximetry 97 Oxygen Delivery Room Air Intake/Output Intake/Output: Intake & Output 09/09/25 09/10/25 09/11/25 09/12/25 23:59 23:59 23:59 23:59 Intake Total 5434.1 970 Output Total 1225 Balance 4209.1 970 Meds/Results Medications: Active Medications Generic Name Dose Route Start Last Admin Trade Name Freq PRN Reason Stop Dose Admin Bupropion HCl 150 mg 06/25/25 09:00 06/26/25 08:17 Bupropion Hcl Xl (24 Hr) 150 Mg Tabcr PO 150 mg QAM ARSH Administration Dextrose 12.5 gm 06/25/25 11:51 Dextrose 50% 25 Gm/50 Ml Syringe IV PUSH PRN PRN Hypoglycemia Protocol Enoxaparin Sodium 40 mg 06/25/25 09:00 06/26/25 08:17 Enoxaparin 40 Mg/0.4 Ml Syringe SUB-Q 40 mg DAILY ARSH Administration Glucagon 1 mg 06/25/25 11:51 Glucagon For Inj 1 Mg Vial IM PRN PRN Hypoglycemia Protocol Glucose 15 gm 06/25/25 11:51 Glucose Oral Gel 15 Gm Of Glucse In 37.5 Gm Tube PO PRN PRN Hypoglycemia Protocol Dextrose 1,000 mls @ 100 mls/hr 06/25/25 11:51 Dextrose 5% 1,000 Ml IVPB PRN PRN Hypoglycemia Protocol Insulin Aspart 2 - 4 units 06/25/25 21:00 06/25/25 23:51 Insulin Aspart (*Bkc) 100 Units/Ml SUB-Q 2 units HS ARSH Administration Protocol Insulin Aspart 4 - 8 units 06/25/25 12:00 06/26/25 08:15 Insulin Aspart (*Bkc) 100 Units/Ml SUB-Q 6 units TIDWM ARSH Administration Protocol Insulin Glargine 40 units 06/26/25 09:00 06/26/25 08:16 Insulin Glargine (*Bkc) 100 Units/Ml SUB-Q 40 units DAILY ARSH Administration Levothyroxine Sodium 100 mcg/ 175 mcg 06/25/25 06:30 06/26/25 06:04 Levothyroxine Sodium 75 mcg PO 175 mcg DAILY@0630 ARSH Administration Lisinopril 10 mg 06/25/25 12:10 06/26/25 08:17 Lisinopril 10 Mg Tablet PO 10 mg DAILY ARSH Administration Rosuvastatin Calcium 20 mg 06/25/25 09:00 06/26/25 08:17 Rosuvastatin 20 Mg Tablet PO 20 mg QAM ARSH Administration Radiology Results: ITS Impressions Chest X-Ray 06/25/25 06:21 IMPRESSION: 1. No acute cardiopulmonary findings given portable technique. Labs Labs: Laboratory Results - last 24 hr 06/25/25 06/25/25 06/25/25 06:15 12:22 13:35 WBC RBC Hgb Hct MCV MCH MCHC RDW Plt Count MPV Immature Gran % (Auto) Neut % (Auto) Lymph % (Auto) [place] % (Auto) Eos % (Auto) Baso % (Auto) Lymph # (Auto) [place] # (Auto) Eos # (Auto) Baso # (Auto) Abs Immat Gran (auto) Absolute Neuts (auto) Absolute Nucleated RBC Nucleated RBC % Sodium Potassium Chloride Carbon Dioxide Anion Gap BUN Creatinine Estim Creat Clear Calc Estimated GFR Glucose POC Capillary Glucose 164 H 207 H Calcium Phosphorus Magnesium Total Bilirubin AST ALT Alkaline Phosphatase Total Protein Albumin Free T4 1.42 Total T3 0.45 L 06/25/25 06/25/25 06/25/25 14:24 16:36 19:03 WBC RBC Hgb Hct MCV MCH MCHC RDW Plt Count MPV Immature Gran % (Auto) Neut % (Auto) Lymph % (Auto) [place] % (Auto) Eos % (Auto) Baso % (Auto) Lymph # (Auto) [place] # (Auto) Eos # (Auto) Baso # (Auto) Abs Immat Gran (auto) Absolute Neuts (auto) Absolute Nucleated RBC Nucleated RBC % Sodium Potassium Chloride Carbon Dioxide Anion Gap BUN Creatinine Estim Creat Clear Calc Estimated GFR Glucose POC Capillary Glucose 237 H 404 H 407 H Calcium Phosphorus Magnesium Total Bilirubin AST ALT Alkaline Phosphatase Total Protein Albumin Free T4 Total T3 06/25/25 06/25/25 06/25/25 20:35 21:26 22:41 WBC RBC Hgb Hct MCV MCH MCHC RDW Plt Count MPV Immature Gran % (Auto) Neut % (Auto) Lymph % (Auto) [place] % (Auto) Eos % (Auto) Baso % (Auto) Lymph # (Auto) [place] # (Auto) Eos # (Auto) Baso # (Auto) Abs Immat Gran (auto) Absolute Neuts (auto) Absolute Nucleated RBC Nucleated RBC % Sodium Potassium Chloride Carbon Dioxide Anion Gap BUN Creatinine Estim Creat Clear Calc Estimated GFR Glucose POC Capillary Glucose 401 H 387 H 318 H Calcium Phosphorus Magnesium Total Bilirubin AST ALT Alkaline Phosphatase Total Protein Albumin Free T4 Total T3 06/25/25 06/26/25 06/26/25 23:50 01:05 05:46 WBC RBC Hgb Hct MCV MCH MCHC RDW Plt Count MPV Immature Gran % (Auto) Neut % (Auto) Lymph % (Auto) [place] % (Auto) Eos % (Auto) Baso % (Auto) Lymph # (Auto) [place] # (Auto) Eos # (Auto) Baso # (Auto) Abs Immat Gran (auto) Absolute Neuts (auto) Absolute Nucleated RBC Nucleated RBC % Sodium Potassium Chloride Carbon Dioxide Anion Gap BUN Creatinine Estim Creat Clear Calc Estimated GFR Glucose POC Capillary Glucose 290 H 271 H 299 H Calcium Phosphorus Magnesium Total Bilirubin AST ALT Alkaline Phosphatase Total Protein Albumin Free T4 Total T3 06/26/25 06/26/25 06/26/25 06:38 07:51 11:17 WBC 7.7 RBC 4.72 Hgb 14.1 Hct 41.1 L MCV 87.1 MCH 29.9 MCHC 34.3 RDW 12.7 Plt Count 181 MPV 10.2 Immature Gran % (Auto) 0.3 Neut % (Auto) 61.7 Lymph % (Auto) 25.5 [place] % (Auto) 10.8 H Eos % (Auto) 1.4 Baso % (Auto) 0.3 Lymph # (Auto) 1.95 [place] # (Auto) 0.8 H Eos # (Auto) 0.1 Baso # (Auto) 0.0 Abs Immat Gran (auto) 0.02 Absolute Neuts (auto) 4.7 Absolute Nucleated RBC 0.000 Nucleated RBC % 0.0 Sodium 131 L Potassium 4.0 Chloride 98 Carbon Dioxide 26 Anion Gap 7 BUN 19 D Creatinine 0.96 Estim Creat Clear Calc 89 Estimated GFR > 60 Glucose 329 H POC Capillary Glucose 335 H 345 H Calcium 8.2 L Phosphorus 2.2 L Magnesium 1.8 Total Bilirubin 1.3 AST 27 ALT 25 Alkaline Phosphatase 70 Total Protein 6.3 Albumin 3.6 Free T4 Total T3 Quality VTE Prophylaxis VTE prophylaxis: pharmacologic ordered
[2025-06-26 12:00] VITALS: BMI 34.2
[2025-06-26 14:00] VITALS: BP 111/73; PULSE 66; RESP 17; TEMP 36.9; O2SAT 98
[2025-06-26 21:34] VITALS: BP 112/77; PULSE 72; RESP 16; TEMP 36.3; O2SAT 97
[2025-06-27] MEDS: LEVOTHYROXINE SODIUM 100 MCG, LEVOTHYROXINE SODIUM 75 MCG 175 MCG PO (05:32)
[2025-06-27 06:00] VITALS: BP 111/75; PULSE 69; RESP 16; TEMP 36.3; O2SAT 98
[2025-06-27 07:17] LABS: Hematocrit 42.6 % (42.0-52.0); Hemoglobin 14.4 g/dL (14.0-18.0); Mean Corpuscular HGB Conc 33.8 g/dl (32-36); Mean Corpuscular Hemoglobin 29.6 pg (26-34); Mean Corpuscular Volume 87.7 fl (80-100); Platelet Count Result 192 k/mm3 (150-375); Red Blood Count 4.86 M/mm3 (4.6-6.20); White Blood Count 5.2 K/mm3 (4.5-10.0)
[2025-06-27 07:40] LABS: Alanine Aminotransferase 36 U/L (6-50); Albumin Level 3.7 g/dL (3.5-5.1); Alkaline Phosphatase 62 U/L (38-126); Anion Gap 6 mmol/L (4-12); Aspartate Amino Transferase 39 U/L (17-59); Bilirubin,Total 1.2 mg/dL (0.2-1.3); Blood Urea Nitrogen 17 mg/dL (9-20); Calcium 8.6 mg/dL (8.4-10.2); Carbon Dioxide 30 mmol/L (22-30); Chloride 98 mmol/L (98-107); Estimated CRCL calculation 100 ml/min; Estimated Glomerular Filt Rate > 60; Glucose 265 mg/dL (65-110); Potassium 4.0 mmol/L (3.4-5.0); Sodium 134 mmol/L (137-145); Total Protein 6.7 g/dL (6.3-8.2)
[2025-06-27] MEDS: ROSUVASTATIN 20 MG TABLET PO (08:33)
[2025-06-27] MEDS: buPROPion HCL XL (24 HR) 150 MG TABCR PO (08:33)
[2025-06-27] MEDS: INSULIN GLARGINE (*BKC) 100 UNITS/ML 30 UNITS SUB-Q (08:33)
[2025-06-27] MEDS: INSULIN ASPART (*BKC) 100 UNITS/ML SUB-Q ×2 (08:34→11:49)
[2025-06-27] MEDS: INSULIN ASPART (*BKC) 100 UNITS/ML 7 UNITS SUB-Q ×3 (08:34→16:56)
[2025-06-27 14:00] VITALS: BP 119/74; PULSE 67; RESP 14; TEMP 36.6; O2SAT 99
--- NOTE | 2025-06-27 17:35 | P.PNIM_ITS ---
Progress Note: A&P Assessment and Plan (1) DKA (diabetic ketoacidosis): Code(s): E11.10 - Type 2 diabetes mellitus with ketoacidosis without coma Status: Acute Assessment and Plan: Patient presented with polydipsia, poly urea, hyperglycemia, fatigue, nausea. Was found to have anion gap metabolic acidosis, elevated beta hydroxybutyrate, UA showed positive ketones and glucose. -patient was diagnosed with diabetic ketoacidosis, given 3 L IV fluid bolus, started on insulin infusion and IV fluids per DKA protocol -this morning gap is closed, CO2 19 -will transition patient to long-acting insulin, sliding scale insulin along with Accu-Cheks -start patient on diabetic carb consistent diet 06/26/2025 Patient you is getting better. Plan is to continue current treatment. Diabetic teaching and dietitian consult. 06/26: Patient started on Lantus 30 units, NovoLog 7 units with the high-dose sliding scale (2) Diabetes mellitus, new onset: Code(s): E11.9 - Type 2 diabetes mellitus without complications Status: Acute Assessment and Plan: New onset diabetes, -clinical staff educator and dietitian have been consult -hemoglobin A1c is 7.8 this admission (3) Hypothyroidism associated with surgical procedure: Code(s): E89.0 - Postprocedural hypothyroidism Status: Chronic Assessment and Plan: Stable on current medication, will continue current treatment. (4) Benign essential HTN: Code(s): I10 - Essential (primary) hypertension Status: Acute Assessment and Plan: Stable on current medication, will continue current treatment. 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 Patient started on immunotherapy and received his 1st session on April 23 and 2nd session on June 10. Patient was never diabetic before. Patient DKA possibly due to 1 of the side effects of immunotherapy. Patient is currently on Lantus 30 units, NovoLog 7 units t.i.d. with high-dose sliding scale. Review of Systems Review of Systems: All systems reviewed & are unremarkable except as noted in HPI and below Exam Narrative: General: Pleasant gentleman no acute distress HEENT:? Pupils equal and reactive, sclerae is clear, moist oral mucosa Neck:? Supple Respiratory:? Clear to auscultation bilaterally, no wheezing, adequate air entry Cardiac:? S1-S2 is normal, regular rate and rhythm Abdomen:? Soft, nontender, nondistended, obese, normoactive bowel sounds Extremities:? No edema, palpable pedal pulses Neuro:? Intact, nonfocal Skin:? No skin lesions noted Psych:? Normal mentation and affect Objective Data Vital Signs Vital Signs: Vital Signs - 24 hr 06/26/25 21:34 06/27/25 06:00 06/27/25 08:00 Temperature 97.4 F L 97.4 F L Pulse Rate 72 69 Respiratory Rate 16 16 Blood Pressure 112/77 111/75 Pulse Oximetry 97 98 Oxygen Delivery Room Air 06/27/25 14:00 Temperature 97.8 F Pulse Rate 67 Respiratory Rate 14 Blood Pressure 119/74 Pulse Oximetry 99 Oxygen Delivery Intake/Output Intake/Output: Intake & Output 06/24/25 06/25/25 06/26/25 06/27/25 23:59 23:59 23:59 23:59 Intake Total 5434.1 1432 712 Output Total 1225 Balance 4209.1 1432 712 Meds/Results Medications: Active Medications Generic Name Dose Route Start Last Admin Trade Name Freq PRN Reason Stop Dose Admin Bupropion HCl 150 mg 06/25/25 09:00 06/27/25 08:33 Bupropion Hcl Xl (24 Hr) 150 Mg Tabcr PO 150 mg QAM ARSH Administration Dextrose 12.5 gm 06/25/25 11:51 Dextrose 50% 25 Gm/50 Ml Syringe IV PUSH PRN PRN Hypoglycemia Protocol Enoxaparin Sodium 40 mg 06/25/25 09:00 06/27/25 09:00 Enoxaparin 40 Mg/0.4 Ml Syringe SUB-Q Not Given DAILY ARSH Glucagon 1 mg 06/25/25 11:51 Glucagon For Inj 1 Mg Vial IM PRN PRN Hypoglycemia Protocol Glucose 15 gm 06/25/25 11:51 Glucose Oral Gel 15 Gm Of Glucse In 37.5 Gm Tube PO PRN PRN Hypoglycemia Protocol Dextrose 1,000 mls @ 100 mls/hr 06/25/25 11:51 Dextrose 5% 1,000 Ml IVPB PRN PRN Hypoglycemia Protocol Insulin Aspart 2 - 4 units 06/25/25 21:00 06/26/25 20:47 Insulin Aspart (*Bkc) 100 Units/Ml SUB-Q 3 units HS ARSH Administration Protocol Insulin Aspart 4 - 8 units 06/25/25 12:00 06/27/25 16:55 Insulin Aspart (*Bkc) 100 Units/Ml SUB-Q Not Given TIDWM [facility] Protocol Insulin Aspart 7 units 06/27/25 08:00 06/27/25 16:56 Insulin Aspart (*Bkc) 100 Units/Ml 0.067 units/kg (7 units) 7 units SUB-Q Administration TIDWM [facility] Insulin Glargine 30 units 06/27/25 09:00 06/27/25 08:33 Insulin Glargine (*Bkc) 100 Units/Ml SUB-Q 30 units DAILY ARSH Administration Levothyroxine Sodium 100 mcg/ 175 mcg 06/25/25 06:30 06/27/25 05:32 Levothyroxine Sodium 75 mcg PO 175 mcg DAILY@0630 ARSH Administration Lisinopril 10 mg 06/25/25 12:10 06/27/25 08:33 Lisinopril 10 Mg Tablet PO 10 mg DAILY ARSH Administration Rosuvastatin Calcium 20 mg 06/25/25 09:00 06/27/25 08:33 Rosuvastatin 20 Mg Tablet PO 20 mg QAM ARSH Administration Radiology Results: ITS Impressions Chest X-Ray 06/25/25 06:21 IMPRESSION: 1. No acute cardiopulmonary findings given portable technique. Labs Labs: Laboratory Results - last 24 hr 06/26/25 06/27/25 06/27/25 19:40 07:13 07:40 WBC 5.2 RBC 4.86 Hgb 14.4 Hct 42.6 MCV 87.7 MCH 29.6 MCHC 33.8 RDW 12.8 Plt Count 192 MPV 10.6 H Sodium 134 L Potassium 4.0 Chloride 98 Carbon Dioxide 30 Anion Gap 6 BUN 17 Creatinine 0.85 Estim Creat Clear Calc 100 Estimated GFR > 60 Glucose 265 H POC Capillary Glucose 318 H 251 H Calcium 8.6 Total Bilirubin 1.2 AST 39 ALT 36 Alkaline Phosphatase 62 Total Protein 6.7 Albumin 3.7 06/27/25 06/27/25 06/27/25 10:31 11:47 16:37 WBC RBC Hgb Hct MCV MCH MCHC RDW Plt Count MPV Sodium Potassium Chloride Carbon Dioxide Anion Gap BUN Creatinine Estim Creat Clear Calc Estimated GFR Glucose POC Capillary Glucose 274 H 246 H 176 H Calcium Total Bilirubin AST ALT Alkaline Phosphatase Total Protein Albumin Quality VTE Prophylaxis VTE prophylaxis: pharmacologic ordered Hospitalist MIPS Advance Care Plan I have confirmed that the patient's Advanced Care Plan is present, code status is documented, or surrogate decision maker is listed in patient medical record.: Yes Medication Reconciliation I have utilized all available resources to obtain, update and review the patients current medications (includes all prescriptions, OTC, herbals, c annabis, and nutritional supplements).: Yes
[2025-06-27 21:15] VITALS: BP 114/88; PULSE 67; RESP 16; TEMP 36.3; O2SAT 100
[2025-06-28] MEDS: LEVOTHYROXINE SODIUM 100 MCG, LEVOTHYROXINE SODIUM 75 MCG 175 MCG PO (05:37)
[2025-06-28 06:00] VITALS: BP 106/78; PULSE 68; RESP 20; TEMP 36.3; O2SAT 96
[2025-06-28 06:07] LABS: Hematocrit 41.8 % (42.0-52.0); Hemoglobin 14.2 g/dL (14.0-18.0); Mean Corpuscular HGB Conc 34.0 g/dl (32-36); Mean Corpuscular Hemoglobin 29.9 pg (26-34); Mean Corpuscular Volume 88.0 fl (80-100); Platelet Count Result 186 k/mm3 (150-375); Red Blood Count 4.75 M/mm3 (4.6-6.20); White Blood Count 5.8 K/mm3 (4.5-10.0)
[2025-06-28 06:26] LABS: Alanine Aminotransferase 86 U/L (6-50); Albumin Level 3.5 g/dL (3.5-5.1); Alkaline Phosphatase 55 U/L (38-126); Anion Gap 5 mmol/L (4-12); Aspartate Amino Transferase 104 U/L (17-59); Bilirubin,Total 0.9 mg/dL (0.2-1.3); Blood Urea Nitrogen 19 mg/dL (9-20); Calcium 8.7 mg/dL (8.4-10.2); Carbon Dioxide 33 mmol/L (22-30); Chloride 100 mmol/L (98-107); Estimated CRCL calculation 94 ml/min; Estimated Glomerular Filt Rate > 60; Glucose 136 mg/dL (65-110); Potassium 4.0 mmol/L (3.4-5.0); Sodium 138 mmol/L (137-145); Total Protein 6.3 g/dL (6.3-8.2)
[2025-06-28] MEDS: INSULIN ASPART (*BKC) 100 UNITS/ML 7 UNITS SUB-Q ×2 (07:49→12:19)
[2025-06-28] MEDS: buPROPion HCL XL (24 HR) 150 MG TABCR PO (09:25)
[2025-06-28] MEDS: INSULIN GLARGINE (*BKC) 100 UNITS/ML 30 UNITS SUB-Q (09:26)
[2025-06-28] MEDS: ROSUVASTATIN 20 MG TABLET PO (09:26)
--- NOTE | 2025-06-28 09:33 | P.DS_ITS ---
DS: Admitting Diagnosis Discharge Date 06/28/2025 Admitting Diagnosis DKA DS: Discharge Diagnosis Discharge Diagnosis (1) DKA (diabetic ketoacidosis): Code(s): E11.10 - Type 2 diabetes mellitus with ketoacidosis without coma Status: Acute Assessment and Plan: Please refer to hospital course for brief summary Patient presented with polydipsia, poly urea, hyperglycemia, fatigue, nausea. Was found to have anion gap metabolic acidosis, elevated beta hydroxybutyrate, UA showed positive ketones and glucose. -patient was diagnosed with diabetic ketoacidosis, given 3 L IV fluid bolus, started on insulin infusion and IV fluids per DKA protocol -this morning gap is closed, CO2 19 -will transition patient to long-acting insulin, sliding scale insulin along with Accu-Cheks -start patient on diabetic carb consistent diet 06/26/2025 Patient you is getting better. Plan is to continue current treatment. Diabetic teaching and dietitian consult. 06/26: Patient started on Lantus 30 units, NovoLog 7 units with the high-dose sliding scale (2) Diabetes mellitus, new onset: Code(s): E11.9 - Type 2 diabetes mellitus without complications Status: Acute Assessment and Plan: New onset diabetes, -pt escort and dietitian have been consult -hemoglobin A1c is 7.8 this admission (3) Hypothyroidism associated with surgical procedure: Code(s): E89.0 - Postprocedural hypothyroidism Status: Chronic Assessment and Plan: Stable on current medication, will continue current treatment. (4) Benign essential HTN: Code(s): I10 - Essential (primary) hypertension Status: Acute Assessment and Plan: Stable on current medication, will continue current treatment. (5) Mixed hyperlipidemia: Code(s): E78.2 - Mixed hyperlipidemia Status: Acute Assessment and Plan: Continue rosuvastatin (6) AC (generalized anxiety disorder): Code(s): F41.1 - Generalized anxiety disorder Status: Acute Assessment and Plan: Continue bupropion DS: Summary Hospital Course Hospital Course: 59 year old male patient with new diagnosis of diabetes who is admitted to ICU with DKA. 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 Patient came to ER on 06/20/25 with increased thirst and urination and he was found to have highly elevated glucose and new onset diabetes. His glucose was treated somewhat and he was discharged to follow up with PCP. Today he returned to ER with generalized weakness, polyuria, polydipsia, polyphagia that was worsening. Patient contacted his oncologist who referred him to Endocrinology but no medications started yet. Prior to ER return, patient had to leave work early because he was so run down and feeling terrible. He also had emesis x1 after trying to consume a blueberry and canadian yogurt smoothy. Patient reports he hasn't vomited in 25 years so when this happened he knew he needed to get checked out. Patient stated that he recently had his second round of Keytruda for his metastatic melanoma. He is supposed to get infusions every 6 weeks for a year. In ER patient found to have very significant metabolic acidosis with anion gap estimated around 30 but unable to calculate exactly due to carbon dioxide < 5 on CMP. He received 3 liters of LR bolus and started on insulin drip. Glucose was 693 on initial chemistry panel. Patient admitted with ongoing DKA protocol set. He denies abdominal pain, vomiting, fever or chills. Urine shows 3+ glucose and 4+ ketones. Beta- hydroxybutyrate 11.6. TONNY also noted with estimated GFR 39 on arrival. This is suspected to be dehydration/DKA related and no suspicion for obstructive uropathy. Patient reports profuse urination recently. Potassium initially 5.7 but is lowering and potassium containing IV fluids will be started. Likewise, TONNY is beginning to improve slightly. 06/27-06/28:Patient has a history of melanoma metastatic to lymph nodes. Patient started on immunotherapy and received his 1st session on April 23 and 2nd session on June 10. Patient was never diabetic before. Patient DKA possibly due to the side effects of immunotherapy. Patient is currently on Lantus 30 units, NovoLog 7 units t.i.d. with high-dose sliding scale. Advised to closely follow-up with clerk guide and oncologist. Patient may benefit from steroid for possible pancreatic injury but unfortunately 1 of the side effects of steroid which can cause high blood glucose. On the day of discharge, the patient was seen and examined. Vital signs were stable. Physical exam were stable and labs were reviewed at length. Discharge instructions, medications, and follow-up appointments were discussed with the patient at length and all day questions were answered. ER warnings were given. Status at Discharge Cognitive/behavioral status at discharge: Stable Time Spent with Patient Time attestation: Total time spent providing and/or coordinating discharge services: 45 minutes Exam Narrative: General: Pleasant gentleman no acute distress HEENT:? Pupils equal and reactive, sclerae is clear, moist oral mucosa Neck:? Supple Respiratory:? Clear to auscultation bilaterally, no wheezing, adequate air entry Cardiac:? S1-S2 is normal, regular rate and rhythm Abdomen:? Soft, nontender, nondistended, obese, normoactive bowel sounds Extremities:? No edema, palpable pedal pulses Neuro:? Intact, nonfocal Skin:? No skin lesions noted Psych:? Normal mentation and affect DS: Data Data Completed and Pending Labs on day of discharge: Labs from last 24 hours 06/28/25 06/28/25 06/27/25 07:44 05:54 19:46 WBC 5.8 RBC 4.75 Hgb 14.2 Hct 41.8 L MCV 88.0 MCH 29.9 MCHC 34.0 RDW 12.6 Plt Count 186 MPV 10.6 H Sodium 138 Potassium 4.0 Chloride 100 Carbon Dioxide 33 H Anion Gap 5 BUN 19 Creatinine 0.92 Estim Creat Clear Calc 94 Estimated GFR > 60 Glucose 136 H POC Capillary Glucose 134 H 200 H Calcium 8.7 Total Bilirubin 0.9 AST 104 H ALT 86 H Alkaline Phosphatase 55 Total Protein 6.3 Albumin 3.5 06/27/25 06/27/25 06/27/25 16:37 11:47 10:31 WBC RBC Hgb Hct MCV MCH MCHC RDW Plt Count MPV Sodium Potassium Chloride Carbon Dioxide Anion Gap BUN Creatinine Estim Creat Clear Calc Estimated GFR Glucose POC Capillary Glucose 176 H 246 H 274 H Calcium Total Bilirubin AST ALT Alkaline Phosphatase Total Protein Albumin Imaging Radiologist's impression: ITS Impressions Chest X-Ray 06/25/25 06:21 IMPRESSION: 1. No acute cardiopulmonary findings given portable technique. Discharge Plan Discharge Attending physician on discharge: Drake Romero Consulting providers: Jono Alejandro Discharging Clinician: Drake Romero Patient Disposition: Home Activity: as tolerated Diet: diabetic Discharge Instructions: Please return to ED if you have any concerning symptoms Closely follow-up with clerk guide Closely follow-up with the oncologist Closely follow-up with the PCP within 1 week upon discharge Patient Instructions: Basic Carbohydrate Counting (DC) Patient Language: Lao Stand Alone Forms: General Discharge Information Follow-up/Referrals: Carin Mcgee, [employer]GER[employer] [Primary Care Provider, [facility]] Discharge Medications: New (DME) blood-glucose meter [OneTouch Verio Flex meter] Misc Qty: 1 0RF Rx Instructions: May substitute to in-stock meter and/or covered by insurance. Use As Directed (DME) OneTouch Verio test strips Strip Qty: 1 0RF Rx Instructions: May substitute to in-stock and/or covered by insurance strips. Use As Directed (DME) pen needle, diabetic 32 gauge x 5/32 Needle Qty: 1 0RF Rx Instructions: As Directed (DME) lancets [OneTouch Delica Plus Lancet] 30 gauge misc Qty: 1 0RF Rx Instructions: May substitute to in-stock and/or covered by insurance lancets. Use As Directed (DME) insulin syringe,safety needle 0.5 mL 31 gauge x 5/16 Syringe Qty: 1 0RF Rx Instructions: As Directed insulin aspart U-100 [Novolog FlexPen U-100 Insulin] 100 unit/mL (3 mL) insulin pen 7 unit subcut TID Qty: 15 3RF insulin aspart U-100 [Novolog FlexPen U-100 Insulin] 100 unit/mL (3 mL) insulin pen 1 sliding scale dose subcut USEASDIRECTD Qty: 15 3RF Rx Instructions: Low Dose 71-149: 0 units 150-199: 0 units 200-249: 2 units 250-299: 4 units 300-349: 8 units 350-399: 10 units > 400: Call MD insulin glargine [Lantus Solostar U-100 Insulin] 100 unit/mL (3 mL) insulin pen 30 unit subcut QAM Qty: 15 3RF Continued bupropion HCl 150 mg tablet extended release 24 hr See Rx Instructions .ROUTE .COMPLEX Qty: 90 1RF Dose Instruction: TAKE 1 TABLET EVERY MORNING Rx Instructions: TAKE 1 TABLET EVERY MORNING lisinopril-hydrochlorothiazide 10-12.5 mg tablet See Rx Instructions .ROUTE .COMPLEX Qty: 90 1RF Dose Instruction: TAKE 1 TABLET DAILY Rx Instructions: TAKE 1 TABLET DAILY rosuvastatin 20 mg tablet See Rx Instructions .ROUTE .COMPLEX Qty: 90 1RF Dose Instruction: TAKE 1 TABLET DAILY Rx Instructions: TAKE 1 TABLET DAILY levothyroxine [Synthroid] 175 mcg tablet See Rx Instructions .ROUTE .COMPLEX Qty: 90 3RF Dose Instruction: TAKE 1 TABLET DAILY Rx Instructions: TAKE 1 TABLET DAILY Date of admission: 06/24/25 23:50 Primary Care Provider: Carin Mcgee Admitting Provider: Ebony Wright Attending physician on admission: Ebony Wright Condition: Stable
--- NOTE | 2025-07-02 16:00 | PCCDE ---
07/02/25: 3:50 pm - DM educator courtesy follow up call completed. Pt reports to learning, noticing trends, SMBG multiple times a day. Has downloaded the OT Reveal libra and finds it very useful. Question answered. He has new Endo appt Next week (MARIELENA Franco) - he plans on asking for OP DSMT/MNT referral. PCP follow up appt 07/15.
== END 2025-06-28 13:30 | disposition home or self-care (01) | DRG 638 ==
LOC: ANHED 23:50 → ANHICU 06-25 00:41 → ANH3MEDSUR 06-25 16:26
PROVIDERS: Internal Medicine; Nurse Practitioner; Admitting Provider General Practice; Emergency Provider Emergency Medicine; PCP Nurse Practitioner Family; Visit Provider General Practice
DX: E09.10 Drug or chemical induced diabetes mellitus with ketoacidosis without coma (principal); C77.9 Secondary and unspecified malignant neoplasm of lymph node, unspecified; C43.59 Malignant melanoma of other part of trunk; T45.1X5A Adverse effect of antineoplastic and immunosuppressive drugs, initial encounter; I10 Essential (primary) hypertension; E78.2 Mixed hyperlipidemia; F41.1 Generalized anxiety disorder; Z20.822 Contact with and (suspected) exposure to COVID-19; Z85.850 Personal history of malignant neoplasm of thyroid; Z87.891 Personal history of nicotine dependence
CPT/HCPCS: 36415; 71045; 80048; 80053; 80069; 81001; 82010; 82803; 82948; 83036; 83735; 84100; 84145; 84439; 84443; 84480; 85025; 85027; 87637; 87641; 93005; 96361; 96374; 96375; 99285; A9270; J1650; J1815; J3480; J7030; J7120